=== PATIENT | female | born 1955 | race Caucasian/White ===

== ENCOUNTER 2023-02-13 11:02 | Outpatient (OUT) | payer BC, SELFPAY ==
[2023-02-13 10:10] LABS: Basophils Percent Auto 0.6 % (0.2-2.0); Eosinophils Percent Auto 1.1 % (0.9-7.0); Lymphocytes Absolute Auto 1.7 10^3/uL (1.2-3.8); Lymphocytes Percent Auto 47.4 % (20.5-60.0); Mean Corpuscular HGB Conc 32.5 g/dL (29.9-35.2); Mean Corpuscular Hemoglobin 32.2 pg (26.7-34.0); Mean Platelet Volume 9.5 fL (9.5-13.5); Monocytes Absolute Auto 0.4 10^3/uL (0.3-0.8); Monocytes Percent Auto 10.6 % (1.7-12.0); Neutrophils Absolute Auto 1.4 10^3/uL (1.4-6.5); Neutrophils Percent Auto 40.3 % (43.0-75.0); Platelet Count 299 10^3/uL (150-450); Red Blood Count 4.04 10^6/uL (4.20-5.40); Red Cell Distribution Width 11.8 % (11.0-15.0); White Blood Count 3.5 10^3/uL (4.0-11.0)
[2023-02-13 12:59] LABS: Alanine Aminotransferase 34 U/L (14-59); Albumin Globulin Ratio 1.1; Albumin Level 3.7 g/dL (3.4-5.0); Alkaline Phosphatase 61 U/L (46-116); Anion Gap 12.5; Aspartate Amino Transferase 73 U/L (15-37); BUN Creatinine Ratio 16.7; Bilirubin Total 0.7 mg/dL (0.2-1.0); Calcium 8.7 mg/dL (8.5-10.1); Carbon Dioxide 28.1 mmol/L (21.0-32.0); Chloride 104 mmol/L (98-107); Chol HDL Ratio 2.4; Cholesterol 199 mg/dL (<=200); Estimated GFR (African America >60 (>=60); Estimated GFR (Non-African Ame >60 (>=60); Globulin 3.3 g/dL; Glucose 91 mg/dL (74-106); HDL Cholesterol 84 mg/dL (40-60); Potassium 4.6 mmol/L (3.5-5.1); Sodium 140 mmol/L (136-145); Thyroid Stimulating Hormone 1.489 uIU/mL (0.358-3.740); Triglycerides 58 mg/dL (<=150); VLDL CHOLESTEROL 11.6 mg/dL
[2023-02-13 17:12] LABS: Estimated Average Glucose 103 mg/dL; Glycohemoglobin A1C 5.2 % (4.5-6.2)
== END 2023-02-13 11:03 | disposition home or self-care (01) ==
LOC: LAB 11:02
PROVIDERS: PCP Family Medicine; Visit Provider Family Medicine
DX: Z00.00 Encounter for general adult medical examination without abnormal findings (principal)
CPT/HCPCS: 36415; 80053; 80061; 83036; 84443; 85025

== ENCOUNTER 2023-05-03 14:19 | Outpatient (OUT) | payer BC, SELFPAY ==
--- NOTE | 2023-05-03 14:25 | MM_ITS ---
Patient Name: MIKA SPENCER MR#: [id number] : 1955 Exam Date: 05/03/2023 Ordering Doctor: MARTHA GUPTA CNP RADIOLOGY REPORT PROCEDURE: MM TOMOSYNTHESIS SCREENING BI COMPARISON: MG MAMM SCREEN 3D ERWIN CAD, 01/22/2021. MG MAMM SCREEN ERWIN W CAD, 12/05/2019. MG MAMM SCREEN ERWIN W CAD, 12/09/2016. INDICATIONS: Screening Calculator Name NCI Breast Cancer Risk Assessment Tool 5 Year Breast Cancer Risk 1.40% Lifetime Breast Cancer Risk 5.10% Personal Breast Cancer No Personal Ovarian Cancer No Treatments None Family Cancers None LOCATION: [facility] BREAST COMPOSITION: Heterogeneously dense,which may obscure small masses. FINDINGS: DIAGNOSTIC CATEGORY 1--NEGATIVE. RIGHT BREAST: No significant suspicious finding. No significant change has occurred. LEFT BREAST: No significant suspicious finding. No significant change has occurred. RECOMMENDATIONS: ROUTINE MAMMOGRAM AND CLINICAL EVALUATION IN 12 MONTHS. PLEASE NOTE: A NORMAL MAMMOGRAM DOES NOT EXCLUDE THE POSSIBILITY OF BREAST CANCER. A CLINICALLY SUSPICIOUS PALPABLE LUMP SHOULD BE BIOPSIED. Dictated by: Hollis Merino M.D. on 05/04/2023 at 12:07 Approved by: Hollis Merino M.D. on 05/04/2023 at 12:09
== END 2023-05-03 14:20 | disposition home or self-care (01) ==
LOC: MAMMO 14:19
PROVIDERS: PCP Nurse Practitioner Family; Visit Provider Nurse Practitioner Family
DX: Z12.31 Encounter for screening mammogram for malignant neoplasm of breast (principal)
CPT/HCPCS: 77063; 77067

== ENCOUNTER 2023-11-15 14:08 | Outpatient (OUT) | payer BC, SELFPAY ==
--- NOTE | 2023-11-15 14:10 | ECG_ITS ---
[facility] Test Date: 2023-11-15 Pat Name: Sydnee Green Department: Room: - Gender: Female Senior Branch Manager: : 1955 Requested By: Hollis Campo Order Number: [id number] Reading MD: ROSA TAVERAS Measurements Intervals [place] Rate: 58 P: 55 NE: 180 QRS: 7 QRSD: 93 T: 48 QT: 428 QTc: 421 Interpretive Statements SINUS BRADYCARDIA No previous ECG available for comparison Electronically Signed On 11-15-2023 18:41:54 EDT by ROSA TAVERAS
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
== END 2023-11-15 14:09 | disposition home or self-care (01) ==
LOC: PST 14:09
PROVIDERS: PCP Nurse Practitioner Family; Visit Provider Orthopaedic Surgery
DX: Z01.810 Encounter for preprocedural cardiovascular examination (principal); Z01.818 Encounter for other preprocedural examination; S42.002A Fracture of unspecified part of left clavicle, initial encounter for closed fracture
CPT/HCPCS: 93005; G0463

== ENCOUNTER 2023-11-17 08:01 | Day surgery (SDC) | payer BC, SELFPAY ==
[2023-11-15 14:39] VITALS: BP 117/76; PULSE 64; TEMP 36.6; O2SAT 99; BMI 19.9
[2023-11-17] VITALS (9 sets, daily range): BP systolic 117–142; BP diastolic 66–84; PULSE 62–77; TEMP 36.2–36.8; O2SAT 95–100; BMI 19.9; BMI 35.9
--- NOTE | 2023-11-17 | FL_ITS ---
[address] [address] Patient Name: MIKA SPENCER MRN: [id number] date: 1955 Sex: F Assigned Patient Location: [facility] Current Patient Location: [facility] Accession/Order Number: [id number] Exam Date: 11/17/2023 09:43 Report Date: 11/23/2023 07:33 At the request of: CARA VALDERRAMA Procedure: FL fluoroscopy <1hr NON-READ EXAM: FL fluoroscopy <1hr NON-READ HISTORY: TECHNIQUE: FINDINGS: Please see Operative Report. Electronically authenticated by: RADIOLOGIST NO Date: 11/23/2023 07:33
--- NOTE | 2023-11-17 08:00 | XR_ITS ---
The [address] [address] Patient Name: MIKA SPENCER MRN: [id number] date: 1955 Sex: F Assigned Patient Location: [facility] Current Patient Location: [facility] Accession/Order Number: [id number] Exam Date: 11/17/2023 08:14 Report Date: 11/17/2023 09:22 At the request of: JOSÉ MIGUEL HICKS Procedure: XR chest 2V EXAM: Chest x-ray HISTORY: . rule out pneumo preop related to clavicle fracture . COMPARISON: None. TECHNIQUE: Frontal and lateral chest FINDINGS: Heart and vascularity are unremarkable. Lungs are free of focal infiltrates. No definite pneumothorax is identified. Again noted is the fracture involving the left mid clavicle which is unchanged. XR/XR chest 2V IMPRESSION: 1. No acute heart or lung disease identified. 2. No pneumothorax noted. 3. Fracture of the left mid clavicle which is unchanged. Electronically authenticated by: JAYLEN AZUL Date: 11/17/2023 09:22
--- OUTSIDE RECORDS SUMMARY | 2023-11-17 08:05 | XMS_ITS | CCD ---
Author Organization [facility] Care Team Providers Care Flour Broker Name Role Phone Halle Dahl Unavailable DR MORALES TORO Primary Care Unavailable DR CARA CANALES Consulting Unavailable TAY AZUL Attending Unavailable TAY AZUL Admitting Unavailable TAY AZUL Consulting Unavailable BRENDA CH Consulting Unavailable DR MORALES TORO Primary Care Unavailable BRENDA CH Attending Unavailable BRENDA CH Admitting Unavailable Michelle Fisher Unavailable MORALES TORO Attending Unavailable NON STAFF Primary Care Provider UnavailBARBARA Chris Attending Provider NON STAFF Primary Care Unavailable Marilu Olmedo Admitting Unavailable Marilu Olmedo Attending Unavailable Michelle Fisher Admitting Unavailable Michelle Fisher Attending Unavailable NON STAFF Primary Care Unavailable Medications Current Medications Medication Drug Class(es) Dates [...] 50 MG PO Every 6 hours 15 5 November 14, 2023 12:00am Completed/Discontinued Medications Medication Drug Class(es) Dates Sig (Normalized) Sig (Original) predniSONE 10 mg oral tablet (2 sources) Start: 04-05-2022 prednisone 10 MG as directed with food Orally 5 tablet x 2 days, 4 tablet x2 days, 3 tablet x2 days, 2 tablet x 2 days, 1 tablet x 2 days for 10 days Mar, Not-Taking Problems Active Problems Problem Classification Problem Date [...] Dysuria; Translations: [Hematuria, unspecified] Onset: 01-25-2023 Episodic Results Test Name Value Interpretation Reference Range Facility XR clavicle LT*on 11-14-2023 XR clavicle LT* [facility] [place] [address] [place] [address] XRay Report Signed Patient: Sydnee Green MR#: [id number] : 1955 Acct:[id number] Age/Sex: 68 / F ADM Date: 11/14/23 Loc: XDUCLY Room: Type: [facility] Attending Dr: Marilu Olmedo APRN Copies to: Marilu Olmedo APRN Ordering Provider: Marilu Olmedo APRN Date of Service: 11/14/23 XR/XR clavicle LT*: M25.512 - Pain in left shoulder ([id number]) XR/XR shoulder LT min 2V*: M25.512 - [...] Sarita Merritt M.D.11/14/2023 10:45 AM Dictation Location: [place] [address] Transcribed By: CYNTHIA 11/14/23 1045 Dictated By: Sarita Merritt MD 11/14/23 1039 Signed By: 11/14/23 1045 Normal [facility] Urinalysis - AUTOMATEDon Appearance (U) cloudy InSample Other Bilirubin Ql (U) Negative Growing Stars Other Color (U) light yellow [employer] Other Glucose Ql (U) Negative InSample Other Hemoglobin Ql (U) moderate [employer] Other Ketones Ql (U) Negative InSample Other Leukocyte esterase Test strip Ql (U) large [employer] Other Nitrite Ql (U) Negative InSample Other pH (U) 7.0 [pH] [employer] Other Protein Ql (U) Negative InSample Other Specific gravity (U) [Rel density] 1.010 [employer] Other Urobilinogen (U) [Mass/Vol] 0.2 mg/dL [employer] Other Urinalysis - AUTOMATED [employer] Other Urine Cultureon 01-25-2023 Urine Culture >100,000 [employer] Other Urine Culture <16 Susceptible InSample Other Urine Culture <8/4 Susceptible InSample Other Urine Culture <8 Susceptible InSample Other Urine Culture <4 Susceptible InSample Other Urine Culture <2 Susceptible InSample Other Urine Culture <1 Susceptible InSample Other Urine Culture <0.25 Susceptible InSample Other Urine Culture <0.5 Susceptible InSample Other Urine Culture <32 Susceptible InSample Other Urine Culture <0.5/9.5 Susceptible InSample Other Bacteria identified Cx Nom (U) ORGANISM: Escherichia coli (O:ESCCOL) [place] Count >100,000 Aerobic TAMI Charge (NMIC56) --- [...] RESISTANT TO ALL B-LACTAM DRUGS. PERFORMED BY: [address] [place] [address] PATHOLOGIST DISTRIBUTION A CLASS LINEMAN LILLY ACUÑA M.D. [facility] Comment on above: Performed By: #### C UU #### [facility] [address] MRI SHOULDER RT WO CONon MRI SHOULDER [...] CARA CANALES Date: 2022-06-17 12:02 Normal [facility] GLUCOSE BLOODon 04-28-2022 Glucose [Mass/Vol] 92 mg/dL Normal 74-106 [facility] Comment on above: Performed By: #### G ERIC, LIPID #### [facility] [address] [address] [address] Sundar Castillo LIPID PROFILEon 04-28-2022 CHOL-HDL RATIO NORM SEE BELOW Normal [facility] Comment on above: Result Comment: 3.3 - 4.4 LOW RISK 4.4 - 7.1 AVERAGE RISK 7.1 - 11.0 MODERATE RISK >11.0 HIGH RISK Performed By: #### G ERIC, LIPID #### [facility] [address] [address] [address] Sundar Castillo Cholesterol [Mass/Vol] 221 mg/dL Critically high <=200 [facility] Comment on above: Performed By: #### G ERIC, LIPID #### [facility] [address] [address] [address] Sundar Castillo Cholesterol in HDL [Mass/Vol] 91 mg/dL Critically high 40-60 [facility] Comment on above: Performed By: #### G ERIC, LIPID #### [facility] [address] [address] [address] Sundar Castillo Cholesterol in LDL [Mass/Vol] 106.0 mg/dL Normal [facility] Comment on above: Performed By: #### G ERIC, LIPID #### [facility] [address] [address] [address] Sundar Castillo Cholesterol.total /Cholesterol in HDL [Mass ratio] 2.4 {ratio} Normal [facility] Comment on above: Performed By: #### G ERIC, LIPID #### [facility] [address] [address] [address] Sundar Castillo HDL NORMAL > or = 60 mg/dl - LO W CARDIOVASCULAR RISK <40 mg/dl - HIGH CARDIOVASCULAR RISK Normal [facility] Comment on above: Performed By: #### G ERIC, LIPID #### [facility] [address] [address] [address] Sundar Castillo LDL CALC NORMAL SEE BELOW Normal [facility] Comment on above: Result Comment: <100 mg/dl OPTIMAL 100 - 129 mg/dl NEAR OR ABOVE OPTIMAL 130 - 159 mg/dl BORDERLINE HIGH 160 - 189 mg/dl HIGH >190 mg/dl VERY HIGH Performed By: #### G ERIC, LIPID #### [facility] [address] [address] [address] Sundar Castillo Triglyceride [Mass/Vol] 120 mg/dL Normal <=150 [facility] Comment on above: Performed By: #### G ERIC, LIPID #### [facility] [address] [place], [place] [address] Dr. Sundar Castillo VLDL CALC 24.0 mg/dL Normal [facility] Comment on above: Performed By: #### G ERIC, LIPID #### [facility] [address] [place], [place] [address] Dr. Sundar Castillo Vital Signs Date Time Vital Sign Value Performing Clinician Facility 11-14-2023 09:230400 Body height 161.29 cm [facility] 11-14-2023 09:23-0400 Body mass index (BMI) [Ratio] 19.5 kg/m2 [facility] 11-14-2023 09:23-0400 Body temperature 97.4 [degF] [facility] 11-14-2023 09:23-0400 Body weight 50.91 kg [facility] 11-14-2023 09:23-0400 Diastolic blood pressure 81 mm[Hg] [facility] 11-14-2023 09:23-0400 Heart rate 86 /min [facility] 11-14-2023 09:23-0400 Respiratory rate 18 /min [facility] 11-14-2023 09:23-0400 SaO2% (BldA) [Mass fraction] 98 % [facility] 11-14-2023 09:23-0400 Systolic blood pressure 134 mm[Hg] [facility] 01-25-2023 09:20-0400 Body height 162.56 cm Michelle Fisher Other [facility] [employer] Other 01-25-2023 09:20-0400 Body mass index (BMI) [Ratio] 20.97 kg/m2 Michelle Fisher Other [facility] Other 01-25-2023 09:20-0400 Body temperature 98.1 [degF] Michelle Fisher Other [facility] [employer] Other 01-25-2023 09:20-0400 Body weight 55.43 kg Michelle Fisher Other [employer] Other 01-25-2023 09:20-0400 Diastolic blood pressure 85 mm[Hg] Michelle Fisher Other [facility] [employer] Other 01-25-2023 09:20-0400 Respiratory rate 18 /min Michelle Fisher Other [employer] Other 01-25-2023 09:20-0400 SaO2% (BldA) [Mass fraction] 100 % Michelle Fisher Other [facility] [employer] Other 01-25-2023 09:20-0400 Systolic blood pressure 130 mm[Hg] Michelle Fisher Other [employer] Other 04-05-2022 10:20-0500 Body height 162.56 cm Halle Dahl Other [employer] Other 04-05-2022 10:20-0500 Body mass index (BMI) [Ratio] 20.6 kg/m2 Halle Dahl Other [employer] Other 04-05-2022 10:20-0500 Body temperature 97.9 [degF] Halle Dahl Other [employer] Other 04-05-2022 10:20-0500 Body weight 54.43 kg Halle Dahl Other [employer] Other 04-05-2022 10:20-0500 Diastolic blood pressure 92 mm[Hg] Halle Dahl Other [employer] Other 04-05-2022 10:20-0500 Respiratory rate 16 /min Halle Dahl Other [employer] Other 04-05-2022 10:20-0500 SaO2% (BldA) [Mass fraction] 99 % Halle Dahl Other [employer] Other 04-05-2022 10:20-0500 Systolic blood pressure 145 mm[Hg] Halle Dahl Other [employer] Other Encounters Encounter Date Encounter Type Care Provider Facility Start: 11-14-2023 End: 11-14-2023 ambulatory NON STAFF [facility] Work Phone: Start: 11-14-2023 End: 11-14-2023 Patient encounter procedure [facility] Work Phone: Start: 09-28-2023 End: 09-28-2023 ambulatory MORALES TORO Not Available Start: 01-25-2023 Office outpatient vi sit 15 minutes Michelle Fisher [facility] Start: 01-25-2023 End: 01-25-2023 ambulatory Michelle Fisher [facility] [employer] Other Start: 06-17-2022 End: 06-18-[address] MORALES TORO Facility:[facility] Start: 05-02-2022 Encounter for genera l adult medical examination without abnormal findings BRENDA CH [facility] Start: 04-28-2022 End: 04-29-2022 ambulatory BRENDA CH Facility:[facility] Start: 04-28-2022 End: 04-29-2022 Encounter for general adult medical examination without abnormal findings BRENDA CH Facility:[facility] Start: 04-05-2022 End: 04-05-2022 ambulatory Halle Dahl Other [employer] Other Start: 04-05-2022 Office outpatient ne w 20 minutes Halle Dahl [facility] Procedures Date Procedure Procedure Detail Performing Clinician Start: 11-14-2023 Plain X-ray of left clavicle Start: 11-14-2023 Plain X-ray of left shoulder Start: 01-25-2023 Piperacillin/tazobactam Michelle Fisher Other Cosmetic surgery Halle no Other Payers Date Payer Category Payer Self-pay 1957 Medicare [id number] 2. [id number] 1955 Unknown [id number] 2.16.84 [id number] 1955 Unknown [id number] 2.16.84 [id number] 1955 Unknown [id number] 2.16.84 [id number] Unknown [id number] 2.16.8 [id number] Unknown [id number] 2.16.8 [id number] Social History Date Type Detail Facility Sex Assigned At [employer] Other Start: 1955 Sex Assigned At Female F [facility] Evaluation note 01-25-2023 Note Date & Type [...] days Jan, Hematuria, unspecified (ICD-10 - R31.9) [employer] [facility] Other Evaluation note 04-05-2022 Note Date & [...] understanding and is agreeable with treatment plan [employer] [facility] Other History general Narrative - Reported 08-13-1998 Note Date & Type Note Facility 08-13-1998 History general N arrative - Reported Type Surgical History HYSTERECTOMY w/ bladder suspens ion AUGUST 1998 [employer] Other Evaluation note Note Date & Type Note Facility Evaluation note No assessment information availa [facility] Work Phone: Evaluation note Note Date & Type Note Facility Evaluation note Diagnosis Onset Date Abrasions of multiple sites acute Fracture of left clavicle [place] hematoma of great toe of left foot acute [facility] Work Phone: Summary Purpose Family History No [...] DATE CREATED AUTHOR AUTHOR'S ORGANIZ ATION 10/01/2023 [facility] EPIC DATE CREATED AUTHOR AUTHOR'S ORGANIZ ATION 11/17/2023 [facility] Care Teams (unrecognized sec tion [...] BE BASED ON THE PRIMARY CLINICAL RECORDS. [facility] [employer] provides no warranty or guarantee of the accuracy or completeness of information in this document.
[2023-11-17] MEDS: LACTATED RINGER'S SOLUTION 1,000 ML 50 ML IV ×2 (08:54→10:38)
--- NOTE | 2023-11-17 08:58 | PM.ORPRC ---
Procedure Note Date of procedure: 11/17/23 Pre-op diagnosis: Clavicle fracture Post-op diagnosis: same as pre-op Procedure: Procedures: Open reduction internal fixation left clavicle fracture Detail description of procedure: After informed consent was obtained the patient was brought to the operating room where general anesthetic was administered. Patient was placed in the semibeachchair position. The left chest and arm were prepped and draped in the usual sterile fashion. A 10 cm incision was made overlying the clavicle fracture. Hemostasis was achieved with Bovie. Blunt dissection was carried down through soft tissue in order to preserve superficial neurovascular structures. Fracture was identified and subperiosteal dissection was performed. Fracture was found to be comminuted and displaced. Bridge plating technique was performed. Fracture was first fixed medially with 3 nonlocking screws initially and then 2 locking screws all in bicortical fashion utilizing a Synthes locking clavicle plate. Fracture was held in a reduced position and then compression plating technique was used to compress the fracture site with a 2 7 bicortical nonlocking screw laterally. An additional 1 nonlocking screw was placed laterally in a bicortical fashion and then 2 bicortical locking screws were placed laterally. Wound was irrigated. Final x-rays revealed good alignment of the fracture and appropriate implant placement and lengths. Fascia was repaired with a #1 Vicryl suture. Skin was closed with absorbable suture in layers. Steri-Strips and sterile dressing were placed. Patient was awakened and brought to the recovery room in stable condition. There were no intraoperative or immediate postoperative complications. Anesthesia: RAJAT Surgeon: Hollis Campo Pathology: none sent Condition: stable Disposition: PACU
[2023-11-17] MEDS: CEFAZOLIN SODIUM/DEXTROSE,ISO 2 GM/50 ML PIGGYBACK IV (09:30)
[2023-11-17] MEDS: BUPIVACAINE HCL 0.5% PF 50 MG/10 ML VIAL INJ (11:06)
[2023-11-17] MEDS: LIDOCAINE HCL 1%-EPINEPHRINE 1:100,000 10 ML MDV INJ (11:06)
== END 2023-11-17 12:27 | disposition home or self-care (01) ==
PROVIDERS: PCP Nurse Practitioner Family; Visit Provider Orthopaedic Surgery
PROC: (CPT 00450; principal; 2023-11-17 09:00)
DX: S42.002A Fracture of unspecified part of left clavicle, initial encounter for closed fracture (principal); Y93.55 Activity, bike riding; Z87.891 Personal history of nicotine dependence; Z90.710 Acquired absence of both cervix and uterus
CPT/HCPCS: 00450; 23515; 71046; 76000; C1713; J0131; J0665; J0690; J1100; J1170; J1885; J2250; J2405; J2704; J3010

== ENCOUNTER 2023-12-25 10:43 | Outpatient (OUT) | payer BC, SELFPAY ==
--- NOTE | 2023-12-25 | XR_ITS ---
[address] [address] Patient Name: MIKA SPENCER MRN: [id number] date: 1955 Sex: F Assigned Patient Location: Current Patient Location: Accession/Order Number: [id number] Exam Date: 12/25/2023 10:44 Report Date: 12/27/2023 06:42 At the request of: CARA VALDERRAMA Procedure: XR clavicle LT PROCEDURE: XR clavicle LT HISTORY: LEFT CLAVICLE PAIN COMPARISON: XR clavicle left 12/01/2023 FINDINGS: BONES:Prior mid left clavicle fracture with new inferior displacement of the distal end of the clavicle and separation of the distal fragment from the previously placed plate and screws. The plate and screws remain attached to the proximal clavicle. SOFT TISSUES:No visible soft tissue swelling. EFFUSION:None visible. OTHER: Negative. XR/XR clavicle LT IMPRESSION: 1. New separation of the distal clavicle from the plate and screws and slight displacement of the bone. Electronically authenticated by: CARA CANALES Date: 12/27/2023 06:42
--- OUTSIDE RECORDS SUMMARY | 2023-12-25 11:04 | XMS_ITS | CCD ---
Author Organization [facility] Care Team Providers Care Fire Dispatcher Name Role Phone Halle Dahl Unavailable DR [...] Attending Unavailable NON STAFF Primary Care Unavailable CARA VALDERRAMA Referring Unavailable SABRINA WILLIS Primary Care Unavailable CARA VALDERRAMA Referring Unavailable SABRINA WILLIS Primary Care Unavailable CARA VALDERRAMA Referring Unavailable SABRINA WILLIS Primary Care Unavailable Medications Current Medications Medication [...] Three times a day for 2 day(s) 13 Jan, 2023 Active Progesterone (2 sources) Progesterone Progesterone Micronized [...] Da te Episodic/Chronic Fracture of upper limb (6 sources) Fracture of clavicle; Translations: [Fracture of unspecified part of left clavicle, initial encounter for closed fracture] Onset: 12-01-2023 11-14-2023 Episodic Other connective tissue disease (1 [...] [Left shoulder pain] Onset: 11-14-2023 11-14-2023 Episodic Other non-traumatic joint disorders (3 sources) Pain in left hip; Translations: [Pain in left hip] Onset: 12-01-2023 Episodic Superficial injury; contusion (2 sources) Subungual [...] Name Value Interpretation Reference Range Facility XR CLAVICLE LEFTon XR CLAVICLE LEFT EXAM: XR CLAVICLE LEFT. HISTORY: Closed displaced fracture of left clavicle, unspecified part of clavicle, initial encounter. COMPARISON: Intraoperative spot films 11/17/2023, preop films 11/14/2023. IMPRESSION: FINDINGS/IMPRESSION: 1. Plate and screw fixation clavicle intact. 2. Fracture in anatomic alignment, remains visible, in the middle one-third. 3. Mild age-expected degenerative change at the shoulder, unchanged. Interpreted by: Jorge Otto Jr., MD Signed by: Jorge Otto Jr., MD 12/01/23 Final result Normal [facility] XR HIP 2-3 VW W PELVIS LEFTo n 12-01-2023 XR HIP 2-3 VW W PELVIS LEFT EXAM: XR HIP 2-3 VW W PELVIS LEFT HISTORY: Left hip pain. COMPARISON: None. IMPRESSION: FINDINGS/IMPRESSION: 1. 10 mm bony ossicle adjacent to the superolateral left acetabulum of uncertain age. 2. Mild degenerative change at the hips. 2. Degenerative changes lumbar spine with convex left curve. 3. Minimal age-expected degenerative change at the SI joints. Interpreted by: Jorge Otto Jr., MD Signed by: Jorge Otto Jr., MD 12/01/23 Final result Normal [facility] XR clavicle LT*on 11-14-2023 XR clavicle LT* [facility] [place] [address] [place], [place] [id number] XRay Report Signed Patient: Sydnee Spencer MR#: [id number] : 1955 Acct:[id number] Age/Sex: 68 / F ADM Date: 11/14/23 Loc: XDUCLY Room: Type: REG CLI Attending Dr: Marilu Olmedo APRN Copies to: Marilu Olmedo APRN Ordering Provider: Marilu Olmedo APRN Date of Service: 11/14/23 XR/XR clavicle LT*: M25.512 - Pain in left shoulder ([id number]) XR/XR shoulder LT min 2V*: M25.512 - [...] Sarita Merritt M.D.11/14/2023 10:45 AM Dictation Location: [place] [address] Transcribed By: [facility] 11/14/23 1045 Dictated By: Sarita Merritt MD 11/14/23 1039 Signed By: 11/14/23 1045 Normal [facility] Urinalysis - AUTOMATEDon Appearance (U) cloudy [employer] Other Bilirubin Ql (U) Negative [employer] Other Color (U) light yellow [email or web address] Other Glucose Ql (U) Negative [employer] Other Hemoglobin Ql (U) moderate [facility] [email or web address] Other Ketones Ql (U) Negative [employer] Other Leukocyte esterase Test strip Ql (U) large [email or web address] Other Nitrite Ql (U) Negative [employer] Other pH (U) 7.0 [pH] [email or web address] Other Protein Ql (U) Negative [employer] Other Specific gravity (U) [Rel density] 1.010 [email or web address] Other Urobilinogen (U) [Mass/Vol] 0.2 mg/dL [email or web address] Other Urinalysis - AUTOMATED [email or web address] Other Urine Cultureon 01-25-2023 Urine Culture >100,000 [email or web address] Other Urine Culture <16 Susceptible [employer] Other Urine Culture <8/4 Susceptible [employer] Other Urine Culture <8 Susceptible [employer] Other Urine Culture <4 Susceptible [employer] Other Urine Culture <2 Susceptible [employer] Other Urine Culture <1 Susceptible [employer] Other Urine Culture <0.25 Susceptible [employer] Other Urine Culture <0.5 Susceptible [employer] Other Urine Culture <32 Susceptible [employer] Other Urine Culture <0.5/9.5 Susceptible [employer] Other Bacteria identified Cx Nom (U) ORGANISM: Escherichia coli (O:ESCCOL) [place] Count >100,000 Aerobic TAMI Charge (NMIC56) --- [...] RESISTANT TO ALL B-LACTAM DRUGS. PERFORMED BY: [place] [address] PATHOLOGIST PHARMACY CLERK LILLY ACUÑA M.D. Normal [facility] Comment on above: Performed By: #### C UU #### [address] MRI SHOULDER RT WO CONon MRI [...] CARA CANALES Date: 2022-06-17 12:02 Normal [facility] GLUCOSE BLOODon 04-28-2022 Glucose [Mass/Vol] 92 mg/dL Normal 74-106 [facility] Comment on above: Performed By: #### G ERIC, LIPID #### [facility] [address] [place] [address] [address] Sundar Castillo LIPID PROFILEon 04-28-2022 CHOL-HDL RATIO NORM SEE BELOW Normal [facility] Comment on above: Result Comment: 3.3 - 4.4 LOW RISK 4.4 - 7.1 AVERAGE RISK 7.1 - 11.0 MODERATE RISK >11.0 HIGH RISK Performed By: #### G ERIC, LIPID #### [facility] [address] [address] [address] Sundar Castillo Cholesterol [Mass/Vol] 221 mg/dL Critically high <=200 [facility] Comment on above: Performed By: #### G ERIC, LIPID #### [facility] [address] [place] [address] [address] Sundar Castillo Cholesterol in HDL [Mass/Vol] 91 mg/dL Critically high 40-60 [facility] Comment on above: Performed By: #### G ERIC, LIPID #### [facility] [address] [place] [address] [address] Sundar Castillo Cholesterol in LDL [Mass/Vol] 106.0 mg/dL Normal [facility] Comment on above: Performed By: #### G ERIC, LIPID #### [facility] [address] [place] [address] Dr. Sundar Castillo Cholesterol.total /Cholesterol in HDL [Mass ratio] 2.4 {ratio} Normal [facility] Comment on above: Performed By: #### G ERIC, LIPID #### [facility] [address] [place] [address] Dr. Sundar Castillo HDL NORMAL > or = 60 mg/dl - LO W CARDIOVASCULAR RISK <40 mg/dl - HIGH CARDIOVASCULAR RISK Normal [facility] Comment on above: Performed By: #### G ERIC, LIPID #### [facility] [address] [place] [address] Dr. Sundar Castillo LDL CALC NORMAL SEE BELOW Normal [facility] Comment on above: Result Comment: <100 mg/dl OPTIMAL 100 - 129 mg/dl NEAR OR ABOVE OPTIMAL 130 - 159 mg/dl BORDERLINE HIGH 160 - 189 mg/dl HIGH >190 mg/dl VERY HIGH Performed By: #### G ERIC, LIPID #### [facility] [address] [place] [address] [address] Sundar Castillo Triglyceride [Mass/Vol] 120 mg/dL Normal <=150 [facility] Comment on above: Performed By: #### G ERIC, LIPID #### [facility] [address] [place] [address] [address] Sundar Castillo VLDL CALC 24.0 mg/dL Normal [facility] Comment on above: Performed By: #### G ERIC, LIPID #### [facility] [address] [place] [address] Dr. Sundar Castillo Vital Signs Date Time Vital Sign Value Performing Clinician Facility 11-14-2023 09:23-0400 Body height 161.29 cm [facility] 11-14-2023 09:23-0400 Body mass index (BMI) [Ratio] 19.5 kg/m2 [facility] 11-14-2023 09:23-0400 Body temperature 97.4 [degF] [facility] 11-14-2023 09:23-0400 Body weight 50.91 kg [facility] 11-14-2023 09:23-0400 Diastolic blood pressure 81 mm[Hg] [facility] 11-14-2023 09:23-0400 Heart rate 86 /min [facility] 11-14-2023 09:23-0400 Respiratory rate 18 /min [facility] 11-14-2023 09:23-0400 SaO2% (BldA) [Mass fraction] 98 % [facility] 11-14-2023 09:23-0400 Systolic blood pressure 134 mm[Hg] [facility] 01-25-2023 09:20-0400 Body height 162.56 cm Michelle Caraballomond Other [facility] Other 01-25-2023 09:20-0400 Body mass index (BMI) [Ratio] 20.97 kg/m2 Michelle Natalia Other [employer] [facility] Other 01-25-2023 09:20-0400 Body temperature 98.1 [degF] Michelle Natalia Other [email or web address] Other 01-25-2023 09:20-0400 Body weight 55.43 kg Michelle Natalia Other [email or web address] Other 01-25-2023 09:20-0400 Diastolic blood pressure 85 mm[Hg] Michelle Natalia Other [email or web address] Other 01-25-2023 09:20-0400 Respiratory rate 18 /min Michelle Natalia Other [email or web address] Other 01-25-2023 09:20-0400 SaO2% (BldA) [Mass fraction] 100 % Michelle Caraballomond Other [email or web address] Other 01-25-2023 09:20-0400 Systolic blood pressure 130 mm[Hg] Michelle Caraball[place]ond Other [email or web address] Other 04-05-2022 10:20-0500 Body height 162.56 cm Halle Dahl Other [email or web address] Other 04-05-2022 10:20-0500 Body mass index (BMI) [Ratio] 20.6 kg/m2 Halle Dahl Other [email or web address] Other 04-05-2022 10:20-0500 Body temperature 97.9 [degF] Halle Dahl Other [email or web address] Other 04-05-2022 10:20-0500 Body weight 54.43 kg Halle Dahl Other [email or web address] Other 04-05-2022 10:20-0500 Diastolic blood pressure 92 mm[Hg] Halle Dahl Other [email or web address] Other 04-05-2022 10:20-0500 Respiratory rate 16 /min Halle Dahl Other [email or web address] Other 04-05-2022 10:20-0500 SaO2% (BldA) [Mass fraction] 99 % Halle Dahl Other [email or web address] Other 04-05-2022 10:20-0500 Systolic blood pressure 145 mm[Hg] Halle Dahl Other [email or web address] Other Encounters Encounter Date Encounter Type Care Provider Facility Start: 12-01-2023 End: 12-03-2023 ambulatory [facility] Start: 11-14-2023 End: 11-14-2023 ambulatory NON STAFF [facility] Work Phone: Start: 11-14-2023 End: 11-14-2023 Patient encounter procedure [facility] Work Phone: Start: 09-28-2023 End: 09-28-2023 ambulatory MORALES TORO Not Available Start: 01-25-2023 Office outpatient vi sit 15 minutes Michelle Fisher [facility] Start: 01-25-2023 End: 01-25-[address] [facility] [employer] Other Start: 06-17-2022 End: 06-18-[address] MORALES TORO Facility:[facility] Start: 05-02-2022 Encounter for genera l adult medical examination without abnormal findings BRENDA CH [facility] Start: 04-28-2022 End: 04-29-2022 ambulatory BRENDA CH Facility:[facility] Start: 04-28-2022 End: 04-29-2022 Encounter for general adult medical examination without abnormal findings BRENDA CH Facility:[facility] Start: 04-05-2022 End: 04-05-2022 ambulatory Halle Dahl Other [email or web address] Other Start: 04-05-2022 Office outpatient ne w 20 minutes Halle Dahl [facility] Procedures Date Procedure Procedure Detail Performing Clinician Start: 11-14-2023 Plain X-ray of left clavicle Start: 11-14-2023 Plain X-ray of left shoulder Start: 01-25-2023 Piperacillin/tazobactam Michelle Fishre Other Cosmetic surgery Halle no Other Payers Date Payer Category Payer Self-pay 1957 Medicare [id number] 2. [id number] 1955 Unknown [id number] 2.16.84 [id number] 1955 Unknown [id number] 2.16.84 [id number] 1955 Unknown [id number] 2.16.84 [id number] 1955 Unknown [id number] 2.16.8 [id number] 1955 Unknown [id number] 2.16.8 [id number] 1955 Unknown [id number] 2.16.8 [id number] Unknown [id number] 2.16.8 [id number] Unknown [id number] 2.16.8 [id number] Social History Date Type Detail Facility Sex Assigned At [email or web address] Other Start: 1955 Sex Assigned At Female F [facility] Evaluation note 01-25-2023 Note Date & [...] days Jan, Hematuria, unspecified (ICD-10 - R31.9) [email or web address] Other Evaluation note 04-05-2022 Note Date & [...] understanding and is agreeable with treatment plan [email or web address] Other History general Narrative - Reported 08-13-1998 Note Date & Type Note Facility 08-13-1998 History general N arrative - Reported Type Surgical History HYSTERECTOMY w/ bladder suspens ion AUGUST 1998 [email or web address] Other Evaluation note Note Date & Type Note Facility Evaluation note No assessment information availa [facility] Work Phone: Evaluation note Note Date & Type Note Facility Evaluation note Diagnosis Onset Date Abrasions of multiple sites acute Fracture of left clavicle [place] Subungual hematoma of great toe of left foot acute [facility] Work Phone: Summary Purpose Family [...] DATE CREATED AUTHOR AUTHOR'S ORGANIZ ATION 10/01/2023 [facility] EPIC DATE CREATED AUTHOR AUTHOR'S ORGANIZ ATION 11/17/2023 [facility] DATE CREATED AUTHOR AUTHOR'S ORGANIZ ATION 12/04/2023 Tere Leyva [facility] Care Teams (unrecognized sec tion and content) [...] BE BASED ON THE PRIMARY CLINICAL RECORDS. [employer] provides no warranty or guarantee of the accuracy or completeness of information in this document.
== END 2023-12-25 10:44 | disposition home or self-care (01) ==
LOC: EC 10:43
PROVIDERS: PCP Nurse Practitioner Family; Visit Provider Orthopaedic Surgery
DX: S42.022D Displaced fracture of shaft of left clavicle, subsequent encounter for fracture with routine healing (principal)
CPT/HCPCS: 73000

== ENCOUNTER 2024-01-01 10:09 | Outpatient (OUT) | payer BC, SELFPAY ==
--- NOTE | 2024-01-01 | XR_ITS ---
The [address] [address] Patient Name: MIKA SPENCER MRN: [id number] date: 1955 Sex: F Assigned Patient Location: Current Patient Location: Accession/Order Number: [id number] Exam Date: 01/01/2024 10:10 Report Date: 01/02/2024 14:32 At the request of: CARA VALDERRAMA Procedure: XR clavicle LT PROCEDURE: XR clavicle LT DATE: 01/01/2024 9:10 AM CDT COMPARISONS: 12/25/2023 and 12/01/2023 CLINICAL INDICATION: LEFT CLAVICLE PAIN FINDINGS: On the previous exam of 12/25/2023. Is noted as a new finding that the distal end of the clavicle is caudally from the previously placed clavicular fixation plate. There was a fracture of the mid clavicle and it appears that this mid clavicle fracture disrupted and there is more cephalad angulation on 12/25/2023 than on 12/01/2023. Today's exam shows similar findings to 12/25/2023. There is 25 degrees of apex cephalad angulation at the subacute mid clavicle fracture. There is sclerosis at the fracture site consistent with some healing. This probably represents re-fracture within a partially healed mid clavicle fracture. As on previous exam of 12/25/2023 and not seen on 12/01/2023, the distal end of the clavicle is caudally from the previously placed clavicular fixation plate. The proximal and of the clavicle shows the plate and screws to be intact as on 12/25/2023 and 12/01/2023. XR/XR clavicle LT IMPRESSION: Abnormal postop changes stable from 12/25/2023 not seen on 12/01/2023, as discussed above Electronically authenticated by: SHAMEKA OSWALD Date: 01/02/2024 14:32
== END 2024-01-01 10:10 | disposition home or self-care (01) ==
LOC: EC 10:09
PROVIDERS: PCP Nurse Practitioner Family; Visit Provider Orthopaedic Surgery
DX: S42.002D Fracture of unspecified part of left clavicle, subsequent encounter for fracture with routine healing (principal)
CPT/HCPCS: 73000

== ENCOUNTER 2024-01-22 10:09 | Outpatient (OUT) | payer BC, SELFPAY ==
--- NOTE | 2024-01-22 | XR_ITS ---
[address] [address] Patient Name: MIKA SPENCER MRN: [id number] date: 1955 Sex: F Assigned Patient Location: Current Patient Location: Accession/Order Number: [id number] Exam Date: 01/22/2024 10:10 Report Date: 01/23/2024 18:43 At the request of: CARA VALDERRAMA Procedure: XR clavicle LT EXAM: XR clavicle LT HISTORY: LEFT CLAVICLE PAIN COMPARISON: 12/25/2023 FINDINGS/IMPRESSION: 1. Plate and screw fixation of the clavicle. The distal portion of the clavicular plate is detached from the distal aspect of the clavicle and displaced superiorly approximately 1.7 cm. Similar appearance as compared to the prior exam. 2. Mild degeneration of the acromio clavicular joint. Electronically authenticated by: CRISPIN NOVOA Date: 01/23/2024 18:43
--- OUTSIDE RECORDS SUMMARY | 2024-01-22 10:32 | XMS_ITS | CCD ---
Author Organization [facility] Care Team Providers Care Corporate Trust Officer Name Role Phone Halle Dahl Unavailable DR [...] Otto Jr., MD 12/01/23 Final result Normal [facility] XR HIP 2-3 VW W PELVIS LEFTo [...] Otto Jr., MD 12/01/23 Final result Normal [facility] XR clavicle LT*on 11-14-2023 XR clavicle LT* [facility] Main [place] [address] [place], [place] [id number] XRay Report Signed Patient: Sydnee Spencer MR#: [id number] : 1955 Acct:[id number] Age/Sex: 68 / F ADM Date: 11/14/23 Loc: XDUCLY Room: Type: REG CLI Attending Dr: Marilu Olmedo APRN Copies to: Marilu Olmedo APRN Ordering Provider: Marilu Olmedo APRN Date of Service: 11/14/23 XR/XR clavicle LT*: M25.512 - Pain in left shoulder ([id number]) XR/XR shoulder LT min 2V*: M25.512 - [...] Sarita Merritt M.D.11/14/2023 10:45 AM Dictation Location: [place] [address] Transcribed By: [facility] 11/14/23 1045 Dictated By: Sarita Merritt MD 11/14/23 1039 Signed By: 11/14/23 1045 Normal [facility] Urinalysis - AUTOMATEDon Appearance (U) cloudy [employer] Other Bilirubin Ql (U) Negative [employer] Other Color (U) light yellow [employer] Other Glucose Ql (U) Negative [employer] Other Hemoglobin Ql (U) moderate [facility] [employer] Other Ketones Ql (U) Negative [employer] Other Leukocyte esterase Test strip Ql (U) large [employer] Other Nitrite Ql (U) Negative [employer] Other pH (U) 7.0 [pH] Crew Other Protein Ql (U) Negative [employer] Other Specific gravity (U) [Rel density] 1.010 [employer] Other Urobilinogen (U) [Mass/Vol] 0.2 mg/dL [employer] Other Urinalysis - AUTOMATED [employer] Other Urine Cultureon 01-25-2023 Urine Culture >100,000 [employer] Other Urine Culture <16 Susceptible [employer] Other Urine Culture <8/4 Susceptible [employer] Other Urine Culture <8 Susceptible [employer] Other Urine Culture <4 Susceptible [employer] Other Urine Culture <2 Susceptible [employer] Other Urine Culture <1 Susceptible [employer] Other Urine Culture <0.25 Susceptible [employer] Other Urine Culture <0.5 Susceptible [employer] Other Urine Culture <32 Susceptible [employer] Other Urine Culture <0.5/9.5 Susceptible [employer] Other Bacteria identified Cx Nom (U) ORGANISM: Escherichia coli (O:ESCCOL) [place] Count >100,000 Aerobic TAMI Charge (NMIC56) --- [...] RESISTANT TO ALL B-LACTAM DRUGS. PERFORMED BY: [place] [address] PATHOLOGIST GINSENG FARMER LILLY ACUÑA M.D. Normal [facility] Comment on above: Performed By: #### C UU #### [address] MRI SHOULDER RT WO CONon MRI [...] CARA CANALES Date: 2022-06-17 12:[address] [facility] GLUCOSE BLOODon 04-28-2022 Glucose [Mass/Vol] 92 mg/dL Normal 74-[address] [facility] Comment on above: Performed By: #### G ERIC, LIPID #### [facility] [address] [address] [address] Sundar Castillo LIPID PROFILEon 04-28-2022 CHOL-HDL RATIO NORM SEE BELOW Normal [facility] Comment on above: Result Comment: 3.3 - 4.4 LOW RISK 4.4 - 7.1 AVERAGE RISK 7.1 - 11.0 MODERATE RISK >11.0 HIGH RISK Performed By: #### G ERIC, LIPID #### [facility] [address] [address] [address] Sundar Castillo Cholesterol [Mass/Vol] 221 mg/dL Critically high <=[address] [facility] Comment on above: Performed By: #### G ERIC, LIPID #### [facility] [address] [address] [address] Sundar Castillo Cholesterol in HDL [Mass/Vol] 91 mg/dL Critically high 40-60 [facility] Comment on above: Performed By: #### G ERIC, LIPID #### [facility] [address] [address] [address] Sundar Castillo Cholesterol in LDL [Mass/Vol] 106.0 mg/dL Normal [facility] Comment on above: Performed By: #### G ERIC, LIPID #### [facility] [address] [place] [address] Dr. Sundar Castillo Cholesterol.total /Cholesterol in HDL [Mass ratio] 2.4 {ratio} Normal [facility] Comment on above: Performed By: #### G ERIC, LIPID #### [facility] [address] [place] [address] Dr. Sundar Castillo HDL NORMAL > or = 60 mg/dl - LO W CARDIOVASCULAR RISK <40 mg/dl - HIGH CARDIOVASCULAR RISK Normal [facility] Comment on above: Performed By: #### G ERIC, LIPID #### [facility] [address] [place] [address] Dr. Sundar Castillo LDL CALC NORMAL SEE BELOW Normal The [facility] Comment on above: Result Comment: <100 mg/dl OPTIMAL 100 - 129 mg/dl NEAR OR ABOVE OPTIMAL 130 - 159 mg/dl BORDERLINE HIGH 160 - 189 mg/dl HIGH >190 mg/dl VERY HIGH Performed By: #### G ERIC, LIPID #### [facility] [address] [address] [address] Sundar Castillo Triglyceride [Mass/Vol] 120 mg/dL Normal <=[address] [facility] Comment on above: Performed By: #### G ERIC, LIPID #### [facility] [address] [place] [address] [address] Sundar Castillo VLDL CALC 24.0 mg/dL Normal [facility] Comment on above: Performed By: #### G ERIC, LIPID #### [facility] [address] [place] [address] Dr. Sundar Castillo Vital Signs Date Time Vital Sign Value Performing Clinician Facility 11-14-2023 09:23-0400 Body height 161.29 cm [facility] 11-14-2023 09:23-0400 Body mass index (BMI) [Ratio] 19.5 kg/m2 [facility] 11-14-2023 09:23-0400 Body temperature 97.4 [degF] [facility] 11-14-2023 09:23-0400 Body weight 50.91 kg [facility] 11-14-2023 09:23-0400 Diastolic blood pressure 81 mm[Hg] [facility] 11-14-2023 09:23-0400 Heart rate 86 /min [facility] 11-14-2023 09:23-0400 Respiratory rate 18 /min [facility] 11-14-2023 09:23-0400 SaO2% (BldA) [Mass fraction] 98 % [facility] 11-14-2023 09:23-0400 Systolic blood pressure 134 mm[Hg] [facility] 01-25-2023 09:20-0400 Body height 162.56 cm Michelle Caraballomond Other [facility] [place] [employer] Other 01-25-2023 09:20-0400 Body mass index (BMI) [Ratio] 20.97 kg/m2 Michelle Natalia Other [facility] [place] Other 01-25-2023 09:20-0400 Body temperature 98.1 [degF] Michelle Natalia Other Crew Other 01-25-2023 09:20-0400 Body weight 55.43 kg Michelle Natalia Other Crew Other 01-25-2023 09:20-0400 Diastolic blood pressure 85 mm[Hg] Michelle Natalia Other Crew Other 01-25-2023 09:20-0400 Respiratory rate 18 /min Michelle Natalia Other Crew Other 01-25-2023 09:20-0400 SaO2% (BldA) [Mass fraction] 100 % Michelle Caraballomond Other Crew Other 01-25-2023 09:20-0400 Systolic blood pressure 130 mm[Hg] Michelle Caraball[place]ond Other Crew Other 04-05-2022 10:20-0500 Body height 162.56 cm Halle Dahl Other Crew Other 04-05-2022 10:20-0500 Body mass index (BMI) [Ratio] 20.6 kg/m2 Halle Dahl Other Crew Other 04-05-2022 10:20-0500 Body temperature 97.9 [degF] Halle Dahl Other Crew Other 04-05-2022 10:20-0500 Body weight 54.43 kg Halle Dahl Other Crew Other 04-05-2022 10:20-0500 Diastolic blood pressure 92 mm[Hg] Halle Dahl Other Crew Other 04-05-2022 10:20-0500 Respiratory rate 16 /min Halle Dahl Other Crew Other 04-05-2022 10:20-0500 SaO2% (BldA) [Mass fraction] 99 % Halle Dahl Other Crew Other 04-05-2022 10:20-0500 Systolic blood pressure 145 mm[Hg] Halle Dahl Other Crew Other Encounters Encounter Date Encounter Type Care Provider Facility Start: 12-01-2023 End: 12-03-2023 ambulatory [facility] Start: 11-14-2023 End: 11-14-2023 ambulatory NON STAFF [facility] Work Phone: Start: 11-14-2023 End: 11-14-2023 Patient encounter procedure [facility] Work Phone: Start: 09-28-2023 End: 09-28-2023 ambulatory MORALES TORO Not Available Start: 01-25-2023 Office outpatient vi sit 15 minutes Michelle Fisher [facility] Start: 01-25-2023 End: 01-25-2023 ambulatory Michelle Fisher [facility] Other Start: 06-17-2022 End: 06-18-[address] MORALES TORO Facility:H1 Start: 05-02-2022 Encounter for genera l adult medical examination without abnormal findings BRENDA [facility] Start: 04-28-2022 End: 04-29-2022 ambulatory BRENDA CH Facility:[facility]1 Start: 04-28-2022 End: 04-29-2022 Encounter for general adult medical examination without abnormal findings BRENDA CH Facility:[facility] Start: 04-05-2022 End: 04-05-2022 ambulatory Halle Dahl Other Crew Other Start: 04-05-2022 Office outpatient ne w 20 minutes Halle Dahl [facility] Procedures Date Procedure Procedure Detail Performing Clinician Start: 11-14-2023 Plain X-ray of left clavicle Start: 11-14-2023 Plain X-ray of left shoulder Start: 01-25-2023 Piperacillin/tazobactam Michelle Fisher Other Cosmetic surgery Halle no Other Payers Date Payer Category Payer Self-pay 1957 Medicare [id number] 2. [id number] 1955 Unknown [id number] 2.16.84 [id number] 1955 Unknown [id number] 2.16.84 [id number] 1955 Unknown [id number] 2.16.84 [id number] 1955 Unknown [id number] 2.16.8 [id number] 1955 Unknown [id number] 2.16.8 [id number] 1955 Unknown [id number] 2.16.8 [id number] Unknown [id number] 2.16.8 [id number] Unknown [id number] 2.16.8 [id number] Social History Date Type Detail Facility Sex Assigned At Crew Other Start: 1955 Sex Assigned At Female F [facility] Evaluation note 01-25-2023 Note Date & [...] days Jan, Hematuria, unspecified (ICD-10 - R31.9) Crew Other Evaluation note 04-05-2022 Note Date & [...] understanding and is agreeable with treatment plan Crew Other History general Narrative - Reported 08-13-1998 Note Date & Type Note Facility 08-13-1998 History general N arrative - Reported Type Surgical History HYSTERECTOMY w/ bladder suspens ion AUGUST 1998 [facility] Other Evaluation note Note Date & Type Note Facility Evaluation note No assessment information availa [facility] Work Phone: Evaluation note Note Date & Type Note Facility Evaluation note Diagnosis Onset Date Abrasions of multiple sites acute Fracture of left clavicle ac racheal Subungual hematoma of great toe of left foot acute [facility] Medical [facility] Work Phone: Summary Purpose Family History No [...] DATE CREATED AUTHOR AUTHOR'S ORGANIZ ATION 10/01/2023 [facility] EPIC DATE CREATED AUTHOR AUTHOR'S ORGANIZ ATION 11/17/2023 [facility] DATE CREATED AUTHOR AUTHOR'S ORGANIZ ATION 12/04/2023 Tere Leyva [facility] Care Teams (unrecognized sec tion and [...] BE BASED ON THE PRIMARY CLINICAL RECORDS. [employer] provides no warranty or guarantee of the accuracy or completeness of information in this document.
== END 2024-01-22 10:10 | disposition home or self-care (01) ==
LOC: EC 10:09
PROVIDERS: PCP Nurse Practitioner Family; Visit Provider Orthopaedic Surgery
DX: S42.022D Displaced fracture of shaft of left clavicle, subsequent encounter for fracture with routine healing (principal); Z98.890 Other specified postprocedural states
CPT/HCPCS: 73000

== ENCOUNTER 2024-01-24 10:56 | Outpatient (OUT) | payer BC, SELFPAY ==
--- OUTSIDE RECORDS SUMMARY | 2024-01-24 11:18 | XMS_ITS | CCD ---
Author Organization [facility] Care Team Providers Care Movie Star Name Role Phone Halle Dahl Unavailable DR [...] Care Unavailable CARA VALDERRAMA Referring Unavailable SABRINA WILLSI Primary Care Unavailable Medications Current Medications Medication [...] Otto Jr., MD 12/01/23 Final result Normal [facility] XR HIP 2-3 VW W PELVIS LEFTo [...] Otto Jr., MD 12/01/23 Final result Normal [facility] XR clavicle LT*on 11-14-2023 XR clavicle LT* [facility] Main [place] [address] [place], [place] [id number] XRay Report Signed Patient: Sydnee Spencer MR#: [id number] : 1955 Acct:[id number] Age/Sex: 68 / F ADM Date: 11/14/23 Loc: XDUCLY Room: Type: REG CLI Attending Dr: Marilu Olmedo APRN Copies to: Marilu Olmedo APRN Ordering Provider: Marilu Olmedo APRN Date of Service: 11/14/23 XR/XR clavicle LT*: M25.512 - Pain in left shoulder ([id number]) XR/XR shoulder LT min 2V*: M25.512 - [...] Sarita Merritt M.D.11/14/2023 10:45 AM Dictation Location: [place] [address] Transcribed By: [facility] 11/14/23 1045 Dictated By: Sarita Merritt MD 11/14/23 1039 Signed By: 11/14/23 1045 Normal [facility] Urinalysis - AUTOMATEDon Appearance (U) cloudy [employer] Other Bilirubin Ql (U) Negative [employer] Other Color (U) light yellow [employer] Other Glucose Ql (U) Negative [employer] Other Hemoglobin Ql (U) moderate [facility] [employer] Other Ketones Ql (U) Negative [employer] Other Leukocyte esterase Test strip Ql (U) large [employer] Other Nitrite Ql (U) Negative [employer] Other pH (U) 7.0 [pH] [employer] Other Protein Ql (U) Negative [employer] Other Specific gravity (U) [Rel density] 1.010 [employer] Other Urobilinogen (U) [Mass/Vol] 0.2 mg/dL [employer] Other Urinalysis - AUTOMATED [employer] Other Urine Cultureon 01-25-2023 Urine Culture >100,000 [employer] Other Urine Culture <16 Susceptible [employer] Other Urine Culture <8/4 Susceptible [employer] Other Urine Culture <8 Susceptible [employer] Other Urine Culture <4 Susceptible [employer] Other Urine Culture <2 Susceptible [employer] Other Urine Culture <1 Susceptible [employer] Other Urine Culture <0.25 Susceptible [employer] Other Urine Culture <0.5 Susceptible [employer] Other Urine Culture <32 Susceptible [employer] Other Urine Culture <0.5/9.5 Susceptible [employer] Other Bacteria identified Cx Nom (U) ORGANISM: Escherichia coli (O:ESCCOL) [place] Count >100,000 Aerobic TAMI Charge (NMIC56) --- [...] RESISTANT TO ALL B-LACTAM DRUGS. PERFORMED BY: [place] [address] PATHOLOGIST CENTRAL OFFICE WORKER LILLY ACUÑA M.D. Normal [facility] Comment on above: Performed By: #### C UU #### [address] MRI SHOULDER RT WO CONon MRI [...] CARA CANALES Date: 2022-06-17 12:02 Normal The [facility] GLUCOSE BLOODon 04-28-2022 Glucose [Mass/Vol] 92 mg/dL Normal 74-106 [facility] Comment on above: Performed By: #### G ERIC, LIPID #### [facility] [address] [address] [address] Sundar Castillo LIPID PROFILEon 04-28-2022 CHOL-HDL RATIO NORM SEE BELOW Normal [facility] Comment on above: Result Comment: 3.3 - 4.4 LOW RISK 4.4 - 7.1 AVERAGE RISK 7.1 - 11.0 MODERATE RISK >11.0 HIGH RISK Performed By: #### G ERIC, LIPID #### [facility] [address] [address] [address] Sundar Castillo Cholesterol [Mass/Vol] 221 mg/dL Critically high <=200 [facility] Comment on above: Performed By: #### G ERIC, LIPID #### [facility] [address] [address] [address] Sundar Castillo Cholesterol in HDL [Mass/Vol] 91 mg/dL Critically high 40-60 [facility] Comment on above: Performed By: #### G ERIC, LIPID #### [facility] [address] [address] [address] Sundar Castillo Cholesterol in LDL [Mass/Vol] 106.0 mg/dL Normal [facility] Comment on above: Performed By: #### G ERIC, LIPID #### [facility] [address] [place] [address] Dr. Sundar Castillo Cholesterol.total /Cholesterol in HDL [Mass ratio] 2.4 {ratio} Normal [facility] Comment on above: Performed By: #### G ERIC, LIPID #### [facility] [address] [place] [address] Dr. Sundar Castillo HDL NORMAL > or = 60 mg/dl - LO W CARDIOVASCULAR RISK <40 mg/dl - HIGH CARDIOVASCULAR RISK Normal [facility] Comment on above: Performed By: #### G ERIC, LIPID #### [facility] [address] [place] [address] Dr. Sundar Castillo LDL CALC NORMAL SEE BELOW Normal [facility] Comment on above: Result Comment: <100 mg/dl OPTIMAL 100 - 129 mg/dl NEAR OR ABOVE OPTIMAL 130 - 159 mg/dl BORDERLINE HIGH 160 - 189 mg/dl HIGH >190 mg/dl VERY HIGH Performed By: #### G ERIC, LIPID #### [facility] [address] [address] [address] Sundar Castillo Triglyceride [Mass/Vol] 120 mg/dL Normal <=150 [facility] Comment on above: Performed By: #### G ERIC, LIPID #### [facility] [address] [address] [address] Sundar Castillo VLDL CALC 24.0 mg/dL Normal [facility] Comment on above: Performed By: #### G ERIC, LIPID #### [facility] [address] [place] [address] Dr. Sundar Castillo Vital Signs Date Time Vital Sign Value Performing Clinician Facility 11-14-2023 09:23-0400 Body height 161.29 cm [facility] 11-14-2023 09:23-0400 Body mass index (BMI) [Ratio] 19.5 kg/m2 [facility] 11-14-2023 09:23-0400 Body temperature 97.4 [degF] [facility] 11-14-2023 09:23-0400 Body weight 50.91 kg [facility] 11-14-2023 09:23-0400 Diastolic blood pressure 81 mm[Hg] [facility] 11-14-2023 09:23-0400 Heart rate 86 /min [facility] 11-14-2023 09:23-0400 Respiratory rate 18 /min [facility] 11-14-2023 09:23-0400 SaO2% (BldA) [Mass fraction] 98 % [facility] 11-14-2023 09:23-0400 Systolic blood pressure 134 mm[Hg] [facility] 01-25-2023 09:20-0400 Body height 162.56 cm Michelle Caraballomond Other [facility] [employer] Other 01-25-2023 09:20-0400 Body mass index (BMI) [Ratio] 20.97 kg/m2 Michelle Natalia Other [facility] [employer] Other 01-25-2023 09:20-0400 Body temperature 98.1 [degF] Michelle Natalia Other [employer] Other 01-25-2023 09:20-0400 Body weight 55.43 kg Michelle Natalia Other [employer] Other 01-25-2023 09:20-0400 Diastolic blood pressure 85 mm[Hg] Michelle Natalia Other [employer] Other 01-25-2023 09:20-0400 Respiratory rate 18 /min Michelle Natalia Other [employer] Other 01-25-2023 09:20-0400 SaO2% (BldA) [Mass fraction] 100 % Michelle Caraballomond Other [employer] Other 01-25-2023 09:20-0400 Systolic blood pressure 130 mm[Hg] Michelle Caraballomond Other [employer] Other 04-05-2022 10:20-0500 Body height 162.56 cm Halle Dahl Other [employer] Other 04-05-2022 10:20-0500 Body mass index (BMI) [Ratio] 20.6 kg/m2 Halle Dahl Other [employer] Other 04-05-2022 10:20-0500 Body temperature 97.9 [degF] Halle Dahl Other [employer] Other 04-05-2022 10:20-0500 Body weight 54.43 kg Halle Dahl Other [employer] Other 04-05-2022 10:20-0500 Diastolic blood pressure 92 mm[Hg] Halle Dahl Other [employer] Other 04-05-2022 10:20-0500 Respiratory rate 16 /min Halle Dahl Other [employer] Other 04-05-2022 10:20-0500 SaO2% (BldA) [Mass fraction] 99 % Halle Dahl Other [employer] Other 04-05-2022 10:20-0500 Systolic blood pressure 145 mm[Hg] Halle Dahl Other [employer] Other Encounters Encounter Date Encounter Type Care Provider Facility Start: 12-01-2023 End: 12-03-2023 ambulatory CAR[facility] Start: 11-14-2023 End: 11-14-2023 ambulatory NON STAFF [facility] Work Phone: Start: 11-14-2023 End: 11-14-2023 Patient encounter procedure [facility] Work Phone: Start: 09-28-2023 End: 09-28-2023 ambulatory MORALES TORO Not Available Start: 01-25-2023 Office outpatient vi sit 15 minutes Michelle Fisher [facility] Start: 01-25-2023 End: 01-25-2023 ambulatory Michelle Fisher [facility] [employer] Other Start: 06-17-2022 End: 06-18-[address] MORALES TORO Facility:[facility]1 Start: 05-02-2022 Encounter for genera l adult medical examination without abnormal findings BRENDA CH [facility] Start: 04-28-2022 End: 04-29-2022 ambulatory BRENDA CH Facility:[facility]1 Start: 04-28-2022 End: 04-29-2022 Encounter for general adult medical examination without abnormal findings BRENDA CH Facility:[facility]1 Start: 04-05-2022 End: 04-05-2022 ambulatory Halle Dahl Other [employer] Other Start: 04-05-2022 Office outpatient ne w 20 minutes Halle Dahl [facility] Procedures Date Procedure Procedure Detail Performing Clinician Start: 11-14-2023 Plain X-ray of left clavicle Start: 11-14-2023 Plain X-ray of left shoulder Start: 01-25-2023 Piperacillin/tazobactam Michelle Fisher Other Cosmetic surgery Halle no Other Payers Date Payer Category Payer Self-pay 1957 Medicare [id number] 2. [id number] 1955 Unknown [id number] 2.16.84 [id number] 1955 Unknown [id number] 2.16.84 [id number] 1955 Unknown [id number] 2.16.84 [id number] 1955 Unknown [id number] 2.16.8 [id number] 1955 Unknown [id number] 2.16.8 [id number] 1955 Unknown [id number] 2.16.8 [id number] Unknown [id number] 2.16.8 [id number] Unknown [id number] 2.16.8 [id number] Social History Date Type Detail Facility Sex Assigned At [employer] Other Start: 1955 Sex Assigned At Female F [facility] Evaluation note 01-25-2023 Note Date & Type [...] days Jan, Hematuria, unspecified (ICD-10 - R31.9) [employer] Other Evaluation note 04-05-2022 Note Date & [...] understanding and is agreeable with treatment plan [employer] Other History general Narrative - Reported 08-13-1998 Note Date & Type Note Facility 08-13-1998 History general N arrative - Reported Type Surgical History HYSTERECTOMY w/ bladder suspens ion AUGUST 1998 [employer] Other Evaluation note Note Date & Type Note Facility Evaluation note No assessment information availa [facility] Work Phone: Evaluation note Note Date & Type Note Facility Evaluation note Diagnosis Onset Date Abrasions of multiple sites acute Fracture of left clavicle ac racheal Subungual hematoma of great toe of left foot acute [facility] Medical [facility] Work Phone: Summary Purpose Family History [...] DATE CREATED AUTHOR AUTHOR'S ORGANIZ ATION 10/01/2023 [facility] Specialists EPIC DATE CREATED AUTHOR AUTHOR'S ORGANIZ ATION 11/17/2023 [facility] ysician Group DATE CREATED AUTHOR AUTHOR'S ORGANIZ ATION 12/04/2023 Tere Leyva [facility] Care Teams (unrecognized sec tion and [...] BE BASED ON THE PRIMARY CLINICAL RECORDS. [employer] provides no warranty or guarantee of the accuracy or completeness of information in this document.
--- NOTE | 2024-01-24 11:33 | PM.PRESUREVA ---
History of Present Illness History of Present Illness Chief complaint: PAINFUL HARDWARE LEFT CLAVICLE Narrative: Patient presents for preadmission testing. Please see HPI from Dr. Campo dated January 22, 2024. Review of Systems ROS Narrative REVIEW OF SYSTEMS: Negative except as stated in HPI, ten or more systems reviewed. Constitutional: No fever, chills, weakness ENT: No sore throat or epistaxis Cardiovascular: No edema, chest pain, palpitations, or activity intolerance Respiratory: No shortness of breath, cough, or wheezing Gastrointestinal: No abdominal pain, constipation, diarrhea, or vomiting Genitourinary: No dysuria or hematuria Neurological: No numbness, tingling, weakness, or headache Psychiatric: No mood changes PFSH PFSH Medical History (Updated 01/24/24 @ 11:13 by Ignacia Daugherty NP) Retained orthopedic hardware ?Z96.9 - Presence of functional implant, unspecified (ICD-10) Rib fracture (11/14/23) ?S22.39XA - Fracture of one rib, unspecified side, initial encounter for closed fracture (ICD-10) COVID-19 ?U07.1 - COVID-19 (ICD-10) Closed left clavicular fracture (11/14/23) ?S42.002A - Fracture of unspecified part of left clavicle, initial encounter for closed fracture (ICD-10) Surgical History (Updated 01/24/24 @ 11:12 by Ignacia Daugherty NP) History of open reduction and internal fixation (ORIF) procedure (11/17/23) ?Z98.890 - Other specified postprocedural states (ICD-10) History of bladder suspension procedure ?Z98.890 - Other specified postprocedural states (ICD-10) ?Z87.448 - Personal history of other diseases of urinary system (ICD-10) History of colonoscopy ?Z98.890 - Other specified postprocedural states (ICD-10) History of hysterectomy ?Z90.710 - Acquired absence of both cervix and uterus (ICD-10) Family History (Updated 11/15/23 @ 14:25 by Ignacia Daugherty NP) Other Family history of aneurysm Family history of cancer Family history of diabetes mellitus Family history of seizures Family history of stroke Social History (Updated 11/17/23 @ 08:34 by Lucero Downs) Within the past year, how often did you have a drink containing alcohol: 2-3 times a week Smoking status: Former smoker Non-prescribed substance use: denies use Previous occupational history: retired Highest level of school completed/degree received: some college, no degree Meds Home Medications and Allergies Home Medications ?Medication ?Instructions ?Recorded ?Confirmed ?Type Bioidentical HRT compound 11/15/23 History multivitamin (Daily Multi-Vitamin 1 tab PO DAILY 11/15/23 01/24/24 History tablet) Allergies Allergy/AdvReac Type Severity Reaction Status Date / Time No Known Drug Allergies Allergy Verified 01/24/24 11:17 Exam Narrative Exam Narrative: Constitutional: Awake, alert, comfortable, well-appearing, nontoxic, interactive, vital signs as charted Head: Normocephalic, atraumatic Eyes: Conjunctiva and lids normal to inspection, pupils normal ENT: Tympanic membranes pearly baum, nonerythematous, noninjected, naris patent, posterior oropharynx clear, oral mucosa moist Neck: Supple, normal appearance, normal range of motion, no meningeal signs, no lymphadenopathy Respiratory: No respiratory distress, breath sounds clear Cardiovascular: Regular rate and rhythm, strong and regular heart tones Skin: No rashes or induration, no lesions, only visible skin inspected Neuro: No neurological deficits, normal sensation Psychiatric: Oriented ?3, normal affect Assessment and Plan Assessment and Plan (1) Retained orthopedic hardware: Plan Left clavicle deep implant removal drooled with Dr. Campo February 05, 2024.
[2024-01-24 11:43] LABS: Basophils Percent Auto 0.6 % (0.2-2.0); Eosinophils Absolute Auto 0.1 10^3/uL (0.0-0.7); Eosinophils Percent Auto 1.5 % (0.9-7.0); Hematocrit 38.3 % (36.0-48.0); Hemoglobin 12.8 g/dL (12.0-16.0); Immature Granulocytes Abs Auto 0.01 10^3/uL (0.00-0.03); Immature Granulocytes Pct Auto 0.2 % (0.0-0.5); Lymphocytes Absolute Auto 1.7 10^3/uL (1.2-3.8); Lymphocytes Percent Auto 31.7 % (20.5-60.0); Mean Corpuscular HGB Conc 33.4 g/dL (29.9-35.2); Mean Corpuscular Hemoglobin 32.8 pg (26.7-34.0); Mean Corpuscular Volume 98.2 fL (81.0-99.0); Monocytes Absolute Auto 0.4 10^3/uL (0.3-0.8); Monocytes Percent Auto 7.5 % (1.7-12.0); Neutrophils Absolute Auto 3.1 10^3/uL (1.4-6.5); Neutrophils Percent Auto 58.5 % (43.0-75.0); Platelet Count 267 10^3/uL (150-450); White Blood Count 5.2 10^3/uL (4.0-11.0)
[2024-01-24 12:18] LABS: BUN Creatinine Ratio 14.7; Calcium 8.8 mg/dL (8.5-10.1); Carbon Dioxide 30.3 mmol/L (21.0-32.0); Chloride 100 mmol/L (98-107); Estimated GFR (African America >60 (>=60); Estimated GFR (Non-African Ame >60 (>=60); Glucose 92 mg/dL (74-106); Potassium 4.3 mmol/L (3.5-5.1); Sodium 134 mmol/L (136-145)
== END 2024-01-24 10:57 | disposition home or self-care (01) ==
LOC: PST 10:58
PROVIDERS: PCP Nurse Practitioner Family; Visit Provider Orthopaedic Surgery
DX: Z01.812 Encounter for preprocedural laboratory examination (principal); Z01.818 Encounter for other preprocedural examination; Z45.89 Encounter for adjustment and management of other implanted devices
CPT/HCPCS: 36415; 80048; 85025; G0463

== ENCOUNTER 2024-02-05 12:29 | Day surgery (SDC) | payer BC, SELFPAY ==
[2024-01-24 11:31] VITALS: BP 144/88; PULSE 60; TEMP 36.5; O2SAT 98; BMI 19.9
[2024-02-05] VITALS (9 sets, daily range): BP systolic 114–160; BP diastolic 66–87; PULSE 69–86; TEMP 36.2–36.7; O2SAT 70–98; BMI 20.1
[2024-02-05] MEDS: LACTATED RINGER'S SOLUTION 1,000 ML 50 ML IV (13:02)
[2024-02-05] MEDS: CEFAZOLIN SODIUM 2 GM/50 ML D5W PREMIX IV (13:09)
[2024-02-05] MEDS: LIDOCAINE HCL 1%-EPINEPHRINE 1:100,000 10 ML MDV INJ (14:08)
[2024-02-05] MEDS: BUPIVACAINE HCL 0.5% PF 50 MG/10 ML VIAL INJ (14:10)
--- NOTE | 2024-02-05 14:20 | P.ORPRC_ITS ---
Procedure Note Date of procedure: 02/05/24 Pre-op diagnosis: Left clavicle deep implant Post-op diagnosis: same as pre-op Procedure: Procedure: Removal deep implant left clavicle Operative procedure: After informed consent was obtained the patient brought to the operating room where general anesthetic was administered. The left chest overlying the clavicle incision was prepped and draped in usual sterile fashion. 15 blade was utilized to incise the skin at the previous incision site. Hemostasis achieved with Bovie. Clavicle plate and screws were removed without difficulty. Fracture line was no longer visualized. Clavicle moved as 1 unit. The wound wa s irrigated. Deep layer was closed with #1 Vicryl in interrupted fashion. Skin was closed with absorbable suture in layers. Steri-Strips and sterile dressing were placed. Wound was infiltrated with 5 mL 1% lidocaine with epinephrine combined with 5 mL 0.5% Marcaine plain. Patient was brought to the recovery room in stable condition. There were no intraoperative or immediate postoperative complications. Surgeon: Hollis Campo Estimated blood loss (mL): 10 Pathology: none sent Condition: stable Disposition: PACU
== END 2024-02-05 15:21 | disposition home or self-care (01) ==
PROVIDERS: PCP Nurse Practitioner Family; Visit Provider Orthopaedic Surgery
PROC: (CPT 450; principal; 2024-02-05 13:25)
DX: T84.84XA Pain due to internal orthopedic prosthetic devices, implants and grafts, initial encounter (principal); Z87.891 Personal history of nicotine dependence; Z90.710 Acquired absence of both cervix and uterus; Z96.9 Presence of functional implant, unspecified
CPT/HCPCS: 20680; 36415; J0131; J0665; J0690; J1100; J1885; J2250; J2405; J2704; J3010

== ENCOUNTER 2024-02-19 10:50 | Outpatient (OUT) | payer BC, SELFPAY ==
--- NOTE | 2024-02-19 | XR_ITS ---
[address] [address] Patient Name: MIKA SPENCER MRN: [id number] date: 1955 Sex: F Assigned Patient Location: Current Patient Location: Accession/Order Number: [id number] Exam Date: 02/19/2024 11:05 Report Date: 02/21/2024 05:29 At the request of: CARA VALDERRAMA Procedure: XR clavicle LT PROCEDURE: XR clavicle LT HISTORY: LEFT CLAVICLE PAIN COMPARISON: XR clavicle left 01/22/2024 FINDINGS: BONES:Remote fracture of mid left clavicle with slight apex angulation. Interval removal of the previously seen plate and screws. Mild degenerative changes of the acromioclavicular joint. SOFT TISSUES:No visible soft tissue swelling. EFFUSION:None visible. OTHER: Negative. XR/XR clavicle LT IMPRESSION: 1. 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 2. Interval removal of fixation plate. Electronically authenticated by: CARA CANALES Date: 02/21/2024 05:29
--- OUTSIDE RECORDS SUMMARY | 2024-02-19 11:06 | XMS_ITS | CCD ---
Author Organization [facility] Care Team Providers Care Pie Chef Name Role Phone Halle Dahl Unavailable DR [...] Otto Jr., MD 12/01/23 Final result Normal [facility] XR HIP 2-3 VW W PELVIS LEFTo [...] Otto Jr., MD 12/01/23 Final result Normal [facility] XR clavicle LT*on 11-14-2023 XR clavicle LT* [facility] Main [place] [address] [place], [place] [id number] XRay Report Signed Patient: Sydnee Spencer MR#: [id number] : 1955 Acct:[id number] Age/Sex: 68 / F ADM Date: 11/14/23 Loc: XDUCLY Room: Type: REG CLI Attending Dr: Marilu Olmedo APRN Copies to: Marilu Olmedo APRN Ordering Provider: Marilu Olmedo APRN Date of Service: 11/14/23 XR/XR clavicle LT*: M25.512 - Pain in left shoulder ([id number]) XR/XR shoulder LT min 2V*: M25.512 - [...] Sarita Merritt M.D.11/14/2023 10:45 AM Dictation Location: [place] [address] Transcribed By: [facility] 11/14/23 1045 Dictated By: Sarita Merritt MD 11/14/23 1039 Signed By: 11/14/23 1045 Normal [facility] Urinalysis - AUTOMATEDon Appearance (U) cloudy Jenn Rykert Other Bilirubin Ql (U) Negative [employer] Other Color (U) light yellow [facility] Other Glucose Ql (U) Negative Jenn Rykert Other Hemoglobin Ql (U) moderate [facility] Other Ketones Ql (U) Negative Jenn Rykert Other Leukocyte esterase Test strip Ql (U) large [facility] Other Nitrite Ql (U) Negative Jenn Rykert Other pH (U) 7.0 [pH] [facility] Other Protein Ql (U) Negative Jenn Rykert Other Specific gravity (U) [Rel density] 1.010 [facility] Other Urobilinogen (U) [Mass/Vol] 0.2 mg/dL [facility] Other Urinalysis - AUTOMATED [facility] Other Urine Cultureon 01-25-2023 Urine Culture >100,000 [facility] Other Urine Culture <16 Susceptible Jenn Rykert Other Urine Culture <8/4 Susceptible Jenn Rykert Other Urine Culture <8 Susceptible Jenn Rykert Other Urine Culture <4 Susceptible Jenn Rykert Other Urine Culture <2 Susceptible Jenn Rykert Other Urine Culture <1 Susceptible Jenn Rykert Other Urine Culture <0.25 Susceptible Jenn Rykert Other Urine Culture <0.5 Susceptible Jenn Rykert Other Urine Culture <32 Susceptible Jenn Rykert Other Urine Culture <0.5/9.5 Susceptible Jenn Rykert Other Bacteria identified Cx Nom (U) ORGANISM: Escherichia coli (O:ESCCOL) [place] Count >100,000 Aerobic TAMI Charge (NMIC56) --- [...] RESISTANT TO ALL B-LACTAM DRUGS. PERFORMED BY: [place] [address] PATHOLOGIST SURGICAL SCHEDULER LILLY ACUÑA M.D. Normal [facility] Comment on above: Performed By: #### C UU #### [address] MRI SHOULDER RT WO CONon MRI [...] CARA CANALES Date: 2022-06-17 12:02 Normal [facility] GLUCOSE BLOODon 04-28-2022 Glucose [Mass/Vol] 92 mg/dL Normal 74-106 [facility] Comment on above: Performed By: #### G ERIC, LIPID #### [facility] [address] [address] [address] Sundar Castillo LIPID PROFILEon 04-28-2022 CHOL-HDL RATIO NORM SEE BELOW Normal [facility] Comment on above: Result Comment: 3.3 - 4.4 LOW RISK 4.4 - 7.1 AVERAGE RISK 7.1 - 11.0 MODERATE RISK >11.0 HIGH RISK Performed By: #### G ERIC, LIPID #### [facility] [address] [address] [address] Sundar Castillo Cholesterol [Mass/Vol] 221 mg/dL Critically high <=200 [facility] Comment on above: Performed By: #### G ERIC, LIPID #### [facility] [address] [address] [address] Sundar Castillo Cholesterol in HDL [Mass/Vol] 91 mg/dL Critically high 40-60 [facility] Comment on above: Performed By: #### G ERIC, LIPID #### [facility] [address] [address] [address] Sundar Castillo Cholesterol in LDL [Mass/Vol] 106.0 mg/dL Normal [facility] Comment on above: Performed By: #### G ERIC, LIPID #### [facility] [address] [place] [address] Dr. Sundar Castillo Cholesterol.total /Cholesterol in HDL [Mass ratio] 2.4 {ratio} Normal [facility] Comment on above: Performed By: #### G ERIC, LIPID #### [facility] [address] [place] [address] Dr. Sundar Castillo HDL NORMAL > or = 60 mg/dl - LO W CARDIOVASCULAR RISK <40 mg/dl - HIGH CARDIOVASCULAR RISK Normal [facility] Comment on above: Performed By: #### G ERIC, LIPID #### [facility] [address] [place] [address] Dr. Sundar Castillo LDL CALC NORMAL SEE BELOW Normal [facility] Comment on above: Result Comment: <100 mg/dl OPTIMAL 100 - 129 mg/dl NEAR OR ABOVE OPTIMAL 130 - 159 mg/dl BORDERLINE HIGH 160 - 189 mg/dl HIGH >190 mg/dl VERY HIGH Performed By: #### G ERIC, LIPID #### [facility] [address] [address] [address] Sundar Castillo Triglyceride [Mass/Vol] 120 mg/dL Normal <=150 [facility] Comment on above: Performed By: #### G ERIC, LIPID #### [facility] [address] [address] [address] Sundar Castillo VLDL CALC 24.0 mg/dL Normal [facility] Comment on above: Performed By: #### G ERIC, LIPID #### [facility] [address] [place] [address] Dr. Sundar Castillo Vital Signs Date Time Vital Sign Value Performing Clinician Facility 11-14-2023 09:23-0400 Body height 161.29 cm [facility] 11-14-2023 09:23-0400 Body mass index (BMI) [Ratio] 19.5 kg/m2 [facility] 11-14-2023 09:23-0400 Body temperature 97.4 [degF] [facility] 11-14-2023 09:23-0400 Body weight 50.91 kg [facility] 11-14-2023 09:23-0400 Diastolic blood pressure 81 mm[Hg] [facility] 11-14-2023 09:23-0400 Heart rate 86 /min [facility] 11-14-2023 09:23-0400 Respiratory rate 18 /min [facility] 11-14-2023 09:23-0400 SaO2% (BldA) [Mass fraction] 98 % [facility] 11-14-2023 09:23-0400 Systolic blood pressure 134 mm[Hg] [facility] 01-25-2023 09:20-0400 Body height 162.56 cm Michelle Caraballomond Other [facility] [email or web address] Other 01-25-2023 09:20-0400 Body mass index (BMI) [Ratio] 20.97 kg/m2 Michelle Natalia Other [facility] [email or web address] Other 01-25-2023 09:20-0400 Body temperature 98.1 [degF] Michelle Natalia Other [facility] Other 01-25-2023 09:20-0400 Body weight 55.43 kg Michelle Natalia Other [facility] Other 01-25-2023 09:20-0400 Diastolic blood pressure 85 mm[Hg] Michelle Natalia Other [facility] Other 01-25-2023 09:20-0400 Respiratory rate 18 /min Michelle Natalia Other [facility] Other 01-25-2023 09:20-0400 SaO2% (BldA) [Mass fraction] 100 % Michelle Caraballomond Other [facility] Other 01-25-2023 09:20-0400 Systolic blood pressure 130 mm[Hg] Michelle Caraballomond Other [facility] Other 04-05-2022 10:20-0500 Body height 162.56 cm Halle Dahl Other [facility] Other 04-05-2022 10:20-0500 Body mass index (BMI) [Ratio] 20.6 kg/m2 Halle Dahl Other [facility] Other 04-05-2022 10:20-0500 Body temperature 97.9 [degF] Halle Dahl Other [facility] Other 04-05-2022 10:20-0500 Body weight 54.43 kg Halle Dahl Other [facility] Other 04-05-2022 10:20-0500 Diastolic blood pressure 92 mm[Hg] Halle Dahl Other [facility] Other 04-05-2022 10:20-0500 Respiratory rate 16 /min Halle Dahl Other [facility] Other 04-05-2022 10:20-0500 SaO2% (BldA) [Mass fraction] 99 % Halle Dahl Other [facility] Other 04-05-2022 10:20-0500 Systolic blood pressure 145 mm[Hg] Halle Dahl Other [facility] Other Encounters Encounter Date Encounter Type Care Provider Facility Start: 12-01-2023 End: 12-03-2023 ambulatory CARA [facility] Start: 11-14-2023 End: 11-14-2023 ambulatory NON STAFF [facility] Work Phone: Start: 11-14-2023 End: 11-14-2023 Patient encounter procedure [facility] Work Phone: Start: 09-28-2023 End: 09-28-2023 ambulatory MORALES TORO Not Available Start: 01-25-2023 Office outpatient vi sit 15 minutes Michelle Fisher [facility] Start: 01-25-2023 End: 01-25-2023 ambulatory Michelle Fisher [facility] [facility] Other Start: 06-17-2022 End: 06-18-[address] MORALES TORO Facility:[facility] Start: 05-02-2022 Encounter for genera l adult medical examination without abnormal findings BRENDA CH [facility] Start: 04-28-2022 End: 04-29-2022 ambulatory BRENDA CH Facility:[facility] Start: 04-28-2022 End: 04-29-2022 Encounter for general adult medical examination without abnormal findings BRENDA CH Facility:[facility] Start: 04-05-2022 End: 04-05-2022 ambulatory Halle Dahl Other [facility] Other Start: 04-05-2022 Office outpatient ne w 20 minutes Halle Dahl [facility] Procedures Date Procedure Procedure Detail Performing Clinician Start: 11-14-2023 Plain X-ray of left clavicle Start: 11-14-2023 Plain X-ray of left shoulder Start: 01-25-2023 Piperacillin/tazobactam Michelle Fisher Other Cosmetic surgery Halle no Other Payers Date Payer Category Payer Self-pay 1957 Medicare [id number] 2. [id number] 1955 Unknown [id number] 2.16.84 [id number] 1955 Unknown [id number] 2.16.84 [id number] 1955 Unknown [id number] 2.16.84 [id number] 1955 Unknown [id number] 2.16.8 [id number] 1955 Unknown [id number] 2.16.8 [id number] 1955 Unknown [id number] 2.16.8 [id number] Unknown [id number] 2.16.8 [id number] Unknown [id number] 2.16.8 [id number] Social History Date Type Detail Facility Sex Assigned At [facility] Other Start: 1955 Sex Assigned At Female F [facility] Evaluation note 01-25-2023 Note Date & [...] days Jan, Hematuria, unspecified (ICD-10 - R31.9) [facility] Other Evaluation note 04-05-2022 Note Date & [...] understanding and is agreeable with treatment plan [facility] Other History general Narrative - Reported 08-13-1998 Note Date & Type Note Facility 08-13-1998 History general N arrative - Reported Type Surgical History HYSTERECTOMY w/ bladder suspens ion AUGUST 1998 [facility] Other Evaluation note Note Date & Type Note Facility Evaluation note No assessment information availa [facility] Work Phone: Evaluation note Note Date & Type Note Facility Evaluation note Diagnosis Onset Date Abrasions of multiple sites acute Fracture of left clavicle [place] Sub[place] hematoma of great toe of left foot acute [facility] Work Phone: Summary Purpose Family History [...] DATE CREATED AUTHOR AUTHOR'S ORGANIZ ATION 10/01/2023 [facility] EPIC DATE CREATED AUTHOR AUTHOR'S ORGANIZ ATION 11/17/2023 [facility] DATE CREATED AUTHOR AUTHOR'S ORGANIZ ATION 12/04/2023 Tere Leyva [facility] Care Teams (unrecognized sec tion and content) [...] Care Provider Active Start: November 14, 2023 Mairlu Olmedo APRN Attending Provider Active Start: November [...] BE BASED ON THE PRIMARY CLINICAL RECORDS. [employer] provides no warranty or guarantee of the accuracy or completeness of information in this document.
== END 2024-02-19 10:51 | disposition home or self-care (01) ==
LOC: EC 10:50
PROVIDERS: PCP Nurse Practitioner Family; Visit Provider Orthopaedic Surgery
DX: S42.002P Fracture of unspecified part of left clavicle, subsequent encounter for fracture with malunion (principal)
CPT/HCPCS: 73000

== ENCOUNTER 2024-02-29 11:46 | Outpatient (OUT) | payer BC, SELFPAY ==
--- OUTSIDE RECORDS SUMMARY | 2024-02-29 11:48 | XMS_ITS | CCD ---
Author Organization [facility] Care Team Providers Care Underwriting Director Name Role Phone Halle Dahl Unavailable DR MORALES TORO Primary Care Unavailable DR CARA CANALES Consulting Unavailable TAY AZUL Attending Unavailable TAY AZUL Admitting Unavailable TAY AZUL Consulting Unavailable BRENDA CH Consulting Unavailable DR MORALES TORO Primary Care Unavailable BRENDA CH Attending Unavailable BRENDA HC Admitting Unavailable Michelle Fisher Unavailable MORALES TORO [...] Otto Jr., MD 12/01/23 Final result Normal [facility] XR HIP 2-3 VW W [...] Otto Jr., MD 12/01/23 Final result Normal [facility] XR clavicle LT*on 11-14-2023 XR clavicle LT* [facility] Main [place] [address] [place], [place] [id number] XRay Report Signed Patient: Sydnee Spencer MR#: [id number] : 1955 Acct:[id number] Age/Sex: 68 / F ADM Date: 11/14/23 Loc: XDUCLY Room: Type: REG CLI Attending Dr: Marilu Olmedo APRN Copies to: Marilu Olmedo APRN Ordering Provider: Marilu Olmedo APRN Date of Service: 11/14/23 XR/XR clavicle LT*: M25.512 - Pain in left shoulder ([id number]) XR/XR shoulder LT min 2V*: M25.512 - [...] Sarita Merritt M.D.11/14/2023 10:45 AM Dictation Location: [place] [address] Transcribed By: [facility] 11/14/23 1045 Dictated By: Sarita Merritt MD 11/14/23 1039 Signed By: 11/14/23 1045 Normal [facility] Urinalysis - AUTOMATEDon Appearance (U) cloudy [employer] Other Bilirubin Ql (U) Negative [employer] Other Color (U) light yellow [employer] Other Glucose Ql (U) Negative [employer] Other Hemoglobin Ql (U) moderate [facility] Other Ketones Ql (U) Negative [employer] Other Leukocyte esterase Test strip Ql (U) large [employer] Other Nitrite Ql (U) Negative [employer] Other pH (U) 7.0 [pH] [employer] Other Protein Ql (U) Negative [employer] Other Specific gravity (U) [Rel density] 1.010 [employer] Other Urobilinogen (U) [Mass/Vol] 0.2 mg/dL [employer] Other Urinalysis - AUTOMATED [employer] Other Urine Cultureon 01-25-2023 Urine Culture >100,000 [employer] Other Urine Culture <16 Susceptible [employer] Other Urine Culture <8/4 Susceptible [employer] Other Urine Culture <8 Susceptible [employer] Other Urine Culture <4 Susceptible [employer] Other Urine Culture <2 Susceptible [employer] Other Urine Culture <1 Susceptible [employer] Other Urine Culture <0.25 Susceptible [employer] Other Urine Culture <0.5 Susceptible [employer] Other Urine Culture <32 Susceptible [employer] Other Urine Culture <0.5/9.5 Susceptible [employer] Other Bacteria identified Cx Nom (U) ORGANISM: Escherichia coli (O:ESCCOL) [place] Count >100,000 Aerobic TAMI Charge (NMIC56) --- [...] RESISTANT TO ALL B-LACTAM DRUGS. PERFORMED BY: [place] [address] PATHOLOGIST VICE PRESIDENT OF ENGINEERING LILLY ACUÑA M.D. Normal [facility] Comment on above: Performed By: #### C UU #### [address] MRI SHOULDER RT WO CONon MRI [...] CARA CANALES Date: 2022-06-17 12:02 Normal [facility] GLUCOSE BLOODon 04-28-2022 Glucose [Mass/Vol] 92 mg/dL Normal 74-106 [facility] Comment on above: Performed By: #### G ERIC, LIPID #### [facility] [address] [address] [address] Sundar Castillo LIPID PROFILEon 04-28-2022 CHOL-HDL RATIO NORM SEE BELOW Normal [facility] Comment on above: Result Comment: 3.3 - 4.4 LOW RISK 4.4 - 7.1 AVERAGE RISK 7.1 - 11.0 MODERATE RISK >11.0 HIGH RISK Performed By: #### G ERIC, LIPID #### [facility] [address] [address] [address] Sundar Castillo Cholesterol [Mass/Vol] 221 mg/dL Critically high <=200 [facility] Comment on above: Performed By: #### G ERIC, LIPID #### [facility] [address] [address] [address] Sundar Castillo Cholesterol in HDL [Mass/Vol] 91 mg/dL Critically high 40-60 [facility] Comment on above: Performed By: #### G ERIC, LIPID #### [facility] [address] [address] [address] uSndar Castillo Cholesterol in LDL [Mass/Vol] 106.0 mg/dL Normal [facility] Comment on above: Performed By: #### G ERIC, LIPID #### [facility] [address] [place] [address] Dr. Sundar Castillo Cholesterol.total /Cholesterol in HDL [Mass ratio] 2.4 {ratio} Normal [facility] Comment on above: Performed By: #### G ERIC, LIPID #### [facility] [address] [place] [address] Dr. Sundar Castillo HDL NORMAL > or = 60 mg/dl - LO W CARDIOVASCULAR RISK <40 mg/dl - HIGH CARDIOVASCULAR RISK Normal [facility] Comment on above: Performed By: #### G ERIC, LIPID #### [facility] [address] [place] [address] Dr. Sundar Castillo LDL CALC NORMAL SEE BELOW Normal [facility] Comment on above: Result Comment: <100 mg/dl OPTIMAL 100 - 129 mg/dl NEAR OR ABOVE OPTIMAL 130 - 159 mg/dl BORDERLINE HIGH 160 - 189 mg/dl HIGH >190 mg/dl VERY HIGH Performed By: #### G ERIC, LIPID #### [facility] [address] [address] [address] Sundar Castillo Triglyceride [Mass/Vol] 120 mg/dL Normal <=150 [facility] Comment on above: Performed By: #### G ERIC, LIPID #### [facility] [address] [address] [address] Sundar Castillo VLDL CALC 24.0 mg/dL Normal [facility] Comment on above: Performed By: #### G ERIC, LIPID #### [facility] [address] [place] [address] Dr. Sundar Castillo Vital Signs Date Time Vital Sign Value Performing Clinician Facility 11-14-2023 09:23-0400 Body height 161.29 cm [facility] 11-14-2023 09:23-0400 Body mass index (BMI) [Ratio] 19.5 kg/m2 [facility] 11-14-2023 09:23-0400 Body temperature 97.4 [degF] [facility] 11-14-2023 09:23-0400 Body weight 50.91 kg [facility] 11-14-2023 09:23-0400 Diastolic blood pressure 81 mm[Hg] [facility] 11-14-2023 09:23-0400 Heart rate 86 /min [facility] 11-14-2023 09:23-0400 Respiratory rate 18 /min [facility] 11-14-2023 09:23-0400 SaO2% (BldA) [Mass fraction] 98 % [facility] 11-14-2023 09:23-0400 Systolic blood pressure 134 mm[Hg] [facility] 01-25-2023 09:20-0400 Body height 162.56 cm Michelle Caraballomond Other [facility] Other 01-25-2023 09:20-0400 Body mass index (BMI) [Ratio] 20.97 kg/m2 Michelle Natalia Other [facility] Other 01-25-2023 09:20-0400 Body temperature 98.1 [degF] Michelle Natalia Other [employer] Other 01-25-2023 09:20-0400 Body weight 55.43 kg Michelle Natalia Other [employer] Other 01-25-2023 09:20-0400 Diastolic blood pressure 85 mm[Hg] Michelle Natalia Other [employer] Other 01-25-2023 09:20-0400 Respiratory rate 18 /min Michelle Natalia Other [employer] Other 01-25-2023 09:20-0400 SaO2% (BldA) [Mass fraction] 100 % Michelle Caraballomond Other [employer] Other 01-25-2023 09:20-0400 Systolic blood pressure 130 mm[Hg] Michelle Caraballomond Other [employer] Other 04-05-2022 10:20-0500 Body height 162.56 cm Halle Dahl Other [employer] Other 04-05-2022 10:20-0500 Body mass index (BMI) [Ratio] 20.6 kg/m2 Halle Dahl Other [employer] Other 04-05-2022 10:20-0500 Body temperature 97.9 [degF] Halle Dahl Other [employer] Other 04-05-2022 10:20-0500 Body weight 54.43 kg Halle Dahl Other [employer] Other 04-05-2022 10:20-0500 Diastolic blood pressure 92 mm[Hg] Halle Dahl Other [employer] Other 04-05-2022 10:20-0500 Respiratory rate 16 /min Halle Dahl Other [employer] Other 04-05-2022 10:20-0500 SaO2% (BldA) [Mass fraction] 99 % Halle Dahl Other [employer] Other 04-05-2022 10:20-0500 Systolic blood pressure 145 mm[Hg] Halle Dahl Other [employer] Other Encounters Encounter Date Encounter Type Care Provider Facility Start: 12-01-2023 End: 12-03-2023 ambulatory CARA Sarah WINTERVAL[facility]JOSE [facility] Start: 11-14-2023 End: 11-14-2023 ambulatory NON STAFF [facility] Work Phone: Start: 11-14-2023 End: 11-14-2023 Patient encounter procedure [facility] Work Phone: Start: 09-28-2023 End: 09-28-2023 ambulatory MORALES TORO Not Available Start: 01-25-2023 Office outpatient vi sit 15 minutes Michelle Fisher [facility] Start: 01-25-2023 End: 01-25-2023 ambulatory Michelle Fisher [facility] [employer] Other Start: 06-17-2022 End: 06-18-[address] MORALES TORO Facility:[facility]1 Start: 05-02-2022 Encounter for genera l adult medical examination without abnormal findings BRENDA CH [facility] Start: 04-28-2022 End: 04-29-2022 ambulatory BRENDA CH Facility:[facility]1 Start: 04-28-2022 End: 04-29-2022 Encounter for general adult medical examination without abnormal findings BRENDA CH Facility:[facility]1 Start: 04-05-2022 End: 04-05-2022 ambulatory Halle Dahl Other [employer] Other Start: 04-05-2022 Office outpatient ne w 20 minutes Halle Dahl [facility] Procedures Date Procedure Procedure Detail Performing Clinician Start: 11-14-2023 Plain X-ray of left clavicle Start: 11-14-2023 Plain X-ray of left shoulder Start: 01-25-2023 Piperacillin/tazobactam Michelle Fisher Other Cosmetic surgery Halle no Other Payers Date Payer Category Payer Self-pay 1957 Medicare [id number] 2. [id number] 1955 Unknown [id number] 2.16.84 [id number] 1955 Unknown [id number] 2.16.84 [id number] 1955 Unknown [id number] 2.16.84 [id number] 1955 Unknown [id number] 2.16.8 [id number] 1955 Unknown [id number] 2.16.8 [id number] 1955 Unknown [id number] 2.16.8 [id number] Unknown [id number] 2.16.8 [id number] Unknown [id number] 2.16.8 [id number] Social History Date Type Detail Facility Sex Assigned At [employer] Other Start: 1955 Sex Assigned At Female F [facility] Evaluation note 01-25-2023 Note Date & Type [...] days Jan, Hematuria, unspecified (ICD-10 - R31.9) [employer] Other Evaluation note 04-05-2022 Note Date & [...] understanding and is agreeable with treatment plan [employer] Other History general Narrative - Reported 08-13-1998 Note Date & Type Note Facility 08-13-1998 History general N arrative - Reported Type Surgical History HYSTERECTOMY w/ bladder suspens ion AUGUST 1998 [employer] Other Evaluation note Note Date & Type Note Facility Evaluation note No assessment information availa [facility] Work Phone: Evaluation note Note Date & Type Note Facility Evaluation note Diagnosis Onset Date Abrasions of multiple sites acute Fracture of left clavicle ac [place] Subungual hematoma of great toe of left foot acute [facility] Work Phone: Summary Purpose Family [...] DATE CREATED AUTHOR AUTHOR'S ORGANIZ ATION 10/01/2023 [facility] EPIC DATE CREATED AUTHOR AUTHOR'S ORGANIZ ATION 11/17/2023 [facility] DATE CREATED AUTHOR AUTHOR'S ORGANIZ ATION 12/04/2023 Tere Leyva [facility] Care Teams (unrecognized sec tion and [...] BE BASED ON THE PRIMARY CLINICAL RECORDS. [employer] provides no warranty or guarantee of the accuracy or completeness of information in this document.
[2024-02-29 13:17] LABS: Basophils Percent Auto 0.7 % (0.2-2.0); Eosinophils Absolute Auto 0.1 10^3/uL (0.0-0.7); Eosinophils Percent Auto 3.1 % (0.9-7.0); Hematocrit 41.8 % (36.0-48.0); Hemoglobin 13.5 g/dL (12.0-16.0); Lymphocytes Absolute Auto 2.1 10^3/uL (1.2-3.8); Lymphocytes Percent Auto 49.8 % (20.5-60.0); Mean Corpuscular HGB Conc 32.3 g/dL (29.9-35.2); Mean Corpuscular Hemoglobin 32.1 pg (26.7-34.0); Mean Corpuscular Volume 99.5 fL (81.0-99.0); Mean Platelet Volume 9.7 fL (9.5-13.5); Monocytes Absolute Auto 0.4 10^3/uL (0.3-0.8); Monocytes Percent Auto 8.7 % (1.7-12.0); Neutrophils Absolute Auto 1.6 10^3/uL (1.4-6.5); Neutrophils Percent Auto 37.7 % (43.0-75.0); Platelet Count 296 10^3/uL (150-450); Red Cell Distribution Width 12.1 % (11.0-15.0); White Blood Count 4.2 10^3/uL (4.0-11.0)
[2024-02-29 14:16] LABS: Alanine Aminotransferase 22 U/L (14-59); Albumin Globulin Ratio 1.2; Albumin Level 3.9 g/dL (3.4-5.0); Alkaline Phosphatase 68 U/L (46-116); Anion Gap 13.7; Aspartate Amino Transferase 53 U/L (15-37); BUN Creatinine Ratio 14.4; Bilirubin Total 0.7 mg/dL (0.2-1.0); Calcium 9.2 mg/dL (8.5-10.1); Carbon Dioxide 28.4 mmol/L (21.0-32.0); Chloride 103 mmol/L (98-107); Chol HDL Ratio 2.4; Cholesterol 224 mg/dL (<=200); Estimated GFR (African America >60 (>=60 mL/min/1.73m^2); Estimated GFR (Non-African Ame 57 (>=60 mL/min/1.73m^2); Globulin 3.2 g/dL; Glucose 73 mg/dL (74-106); HDL Cholesterol 94 mg/dL (40-60); Potassium 4.1 mmol/L (3.5-5.1); Sodium 141 mmol/L (136-145); Total Protein 7.1 g/dL (6.4-8.2); Triglycerides 79 mg/dL (<=150); VLDL CHOLESTEROL 15.8 mg/dL
[2024-02-29 14:39] LABS: Estimated Average Glucose 100 mg/dL; Glycohemoglobin A1C 5.1 % (4.5-6.2)
== END 2024-02-29 11:47 | disposition home or self-care (01) ==
LOC: LAB 11:46
PROVIDERS: PCP Nurse Practitioner Family; Visit Provider Nurse Practitioner Family
DX: Z00.00 Encounter for general adult medical examination without abnormal findings (principal); Z23 Encounter for immunization
CPT/HCPCS: 80053; 80061; 83036; 84443; 85025; 90674

== ENCOUNTER 2024-04-01 08:38 | Outpatient (OUT) | payer BC, SELFPAY ==
--- NOTE | 2024-04-01 | XR_ITS ---
The [address] [address] Patient Name: MIKA SPENCER MRN: [id number] date: 1955 Sex: F Assigned Patient Location: Current Patient Location: Accession/Order Number: [id number] Exam Date: 04/01/2024 08:40 Report Date: 04/02/2024 06:59 At the request of: CARA VALDERRAMA Procedure: XR clavicle LT PROCEDURE: XR clavicle LT HISTORY: LEFT CLAVICLE PAIN COMPARISON: XR clavicle left 02/19/2024 FINDINGS: BONES:Healing mid left clavicle fracture with callus formation and increased density of the fracture line. Slight cephalad apex angulation. SOFT TISSUES:No visible soft tissue swelling. EFFUSION:None visible. OTHER: Negative. XR/XR clavicle LT IMPRESSION: 1. Stable alignment and ongoing bone healing of prior left clavicle fracture. Electronically authenticated by: CARA CANALES Date: 04/02/2024 06:59
--- OUTSIDE RECORDS SUMMARY | 2024-04-01 08:57 | XMS_ITS | CCD ---
Author Organization [facility] Care Team Providers Care Cook Mess Name Role Phone Halle Dahl Unavailable DR [...] Otto Jr., MD 12/01/23 Final result Normal [facility] XR HIP 2-3 VW W PELVIS [...] Otto Jr., MD 12/01/23 Final result Normal [facility] XR clavicle LT*on 11-14-2023 XR clavicle LT* [facility] Main [place] [address] [place], [place] [id number] XRay Report Signed Patient: Sydnee Spencer MR#: [id number] : 1955 Acct:[id number] Age/Sex: 68 / F ADM Date: 11/14/23 Loc: XDUCLY Room: Type: REG CLI Attending Dr: Marilu Olmedo APRN Copies to: Marilu Olmedo APRN Ordering Provider: Marilu Olmedo APRN Date of Service: 11/14/23 XR/XR clavicle LT*: M25.512 - Pain in left shoulder ([id number]) XR/XR shoulder LT min 2V*: M25.512 - [...] Sarita Merritt M.D.11/14/2023 10:45 AM Dictation Location: [place] [address] Transcribed By: [facility] 11/14/23 1045 Dictated By: Sarita Merritt MD 11/14/23 1039 Signed By: 11/14/23 1045 Normal [facility] Urinalysis - AUTOMATEDon Appearance (U) cloudy [employer] Other Bilirubin Ql (U) Negative [employer] Other Color (U) light yellow [employer] Other Glucose Ql (U) Negative [employer] Other Hemoglobin Ql (U) moderate [facility] [employer] Other Ketones Ql (U) Negative [employer] Other Leukocyte esterase Test strip Ql (U) large [employer] Other Nitrite Ql (U) Negative [employer] Other pH (U) 7.0 [pH] [employer] Other Protein Ql (U) Negative [employer] Other Specific gravity (U) [Rel density] 1.010 [employer] Other Urobilinogen (U) [Mass/Vol] 0.2 mg/dL [employer] Other Urinalysis - AUTOMATED [employer] Other Urine Cultureon 01-25-2023 Urine Culture >100,000 [employer] Other Urine Culture <16 Susceptible [employer] Other Urine Culture <8/4 Susceptible [employer] Other Urine Culture <8 Susceptible [employer] Other Urine Culture <4 Susceptible [employer] Other Urine Culture <2 Susceptible [employer] Other Urine Culture <1 Susceptible [employer] Other Urine Culture <0.25 Susceptible [employer] Other Urine Culture <0.5 Susceptible [employer] Other Urine Culture <32 Susceptible [employer] Other Urine Culture <0.5/9.5 Susceptible [employer] Other Bacteria identified Cx Nom (U) ORGANISM: Escherichia coli (O:ESCCOL) [place] Count >100,000 Aerobic TAMI Charge (NMIC56) --- [...] RESISTANT TO ALL B-LACTAM DRUGS. PERFORMED BY: [place] [id number] PATHOLOGIST PREFORM MACHINE OPERATOR LILLY ACUÑA M.D. Normal [facility] Comment on above: Performed By: #### C UU #### [address] MRI SHOULDER RT WO CONon MRI [...] CARA CANALES Date: 2022-06-17 12:02 Normal [facility] GLUCOSE BLOODon 04-28-2022 Glucose [Mass/Vol] 92 mg/dL Normal 74-106 [facility] Comment on above: Performed By: #### G ERIC, LIPID #### [facility] [address] [address] [address] Sundar Castillo LIPID PROFILEon 04-28-2022 CHOL-HDL RATIO NORM SEE BELOW Normal [facility] Comment on above: Result Comment: 3.3 - 4.4 LOW RISK 4.4 - 7.1 AVERAGE RISK 7.1 - 11.0 MODERATE RISK >11.0 HIGH RISK Performed By: #### G ERIC, LIPID #### [facility] [address] [address] [address] Sundar Castillo Cholesterol [Mass/Vol] 221 mg/dL Critically high <=200 [facility] Comment on above: Performed By: #### G ERIC, LIPID #### [facility] [address] [address] [address] Sundar Castillo Cholesterol in HDL [Mass/Vol] 91 mg/dL Critically high 40-60 [facility] Comment on above: Performed By: #### G ERIC, LIPID #### [facility] [address] [address] [address] Sundar Castillo Cholesterol in LDL [Mass/Vol] 106.0 mg/dL Normal [facility] Comment on above: Performed By: #### G ERIC, LIPID #### [facility] [address] [place] [address] Dr. Sundar Castillo Cholesterol.total /Cholesterol in HDL [Mass ratio] 2.4 {ratio} Normal [facility] Comment on above: Performed By: #### G ERIC, LIPID #### [facility] [address] [place] [address] Dr. Sundar Castillo HDL NORMAL > or = 60 mg/dl - LO W CARDIOVASCULAR RISK <40 mg/dl - HIGH CARDIOVASCULAR RISK Normal [facility] Comment on above: Performed By: #### G ERIC, LIPID #### [facility] [address] [place] [address] Dr. Sundar Castillo LDL CALC NORMAL SEE BELOW Normal [facility] Comment on above: Result Comment: <100 mg/dl OPTIMAL 100 - 129 mg/dl NEAR OR ABOVE OPTIMAL 130 - 159 mg/dl BORDERLINE HIGH 160 - 189 mg/dl HIGH >190 mg/dl VERY HIGH Performed By: #### G ERIC, LIPID #### [facility] [address] [address] [address] Sundar Castillo Triglyceride [Mass/Vol] 120 mg/dL Normal <=150 [facility] Comment on above: Performed By: #### G ERIC, LIPID #### [facility] [address] [address] [address] Sundar Castillo VLDL CALC 24.0 mg/dL Normal [facility] Comment on above: Performed By: #### G ERIC, LIPID #### [facility] [address] [place] [address] Dr. Sundar Castillo Vital Signs Date Time Vital Sign Value Performing Clinician Facility 11-14-2023 09:23-0400 Body height 161.29 cm [facility] 11-14-2023 09:23-0400 Body mass index (BMI) [Ratio] 19.5 kg/m2 [facility] 11-14-2023 09:23-0400 Body temperature 97.4 [degF] [facility] 11-14-2023 09:23-0400 Body weight 50.91 kg [facility] 11-14-2023 09:23-0400 Diastolic blood pressure 81 mm[Hg] [facility] 11-14-2023 09:23-0400 Heart rate 86 /min [facility] 11-14-2023 09:23-0400 Respiratory rate 18 /min [facility] 11-14-2023 09:23-0400 SaO2% (BldA) [Mass fraction] 98 % [facility] 11-14-2023 09:23-0400 Systolic blood pressure 134 mm[Hg] [facility] 01-25-2023 09:20-0400 Body height 162.56 cm Michelle Caraballomond Other [facility] [employer] Other 01-25-2023 09:20-0400 Body mass index (BMI) [Ratio] 20.97 kg/m2 Michelle Natlaia Other [facility] [employer] Other 01-25-2023 09:20-0400 Body temperature 98.1 [degF] Michelle Natalia Other [employer] Other 01-25-2023 09:20-0400 Body weight 55.43 kg Michelle Natalia Other [employer] Other 01-25-2023 09:20-0400 Diastolic blood pressure 85 mm[Hg] Michelle Natalia Other [employer] Other 01-25-2023 09:20-0400 Respiratory rate 18 /min Michelle Natalia Other [employer] Other 01-25-2023 09:20-0400 SaO2% (BldA) [Mass fraction] 100 % Michelle Caraballomond Other [employer] Other 01-25-2023 09:20-0400 Systolic blood pressure 130 mm[Hg] Michelle Caraballomond Other [employer] Other 04-05-2022 10:20-0500 Body height 162.56 cm Halle Dahl Other [employer] Other 04-05-2022 10:20-0500 Body mass index (BMI) [Ratio] 20.6 kg/m2 Halle Dahl Other [employer] Other 04-05-2022 10:20-0500 Body temperature 97.9 [degF] Halle Dahl Other [employer] Other 04-05-2022 10:20-0500 Body weight 54.43 kg Halle Dahl Other [employer] Other 04-05-2022 10:20-0500 Diastolic blood pressure 92 mm[Hg] Halle Dahl Other [employer] Other 04-05-2022 10:20-0500 Respiratory rate 16 /min Halle Dahl Other [employer] Other 04-05-2022 10:20-0500 SaO2% (BldA) [Mass fraction] 99 % Halle Dahl Other [employer] Other 04-05-2022 10:20-0500 Systolic blood pressure 145 mm[Hg] Halle Dahl Other [employer] Other Encounters Encounter Date Encounter Type Care Provider Facility Start: 12-01-2023 End: 12-03-2023 ambulatory CARA [facility]SE [facility] Start: 11-14-2023 End: 11-14-2023 ambulatory NON STAFF [facility] Work Phone: Start: 11-14-2023 End: 11-14-2023 Patient encounter procedure [facility] Work Phone: Start: 09-28-2023 End: 09-28-2023 ambulatory MORALES TORO Not Available Start: 01-25-2023 Office outpatient vi sit 15 minutes Michelle Fisher [facility] Start: 01-25-2023 End: 01-25-2023 ambulatory Michelle Fisher [facility] [employer] Other Start: 06-17-2022 End: 06-18-[address] MORALES TORO Facility:[facility]1 Start: 05-02-2022 Encounter for genera l adult medical examination without abnormal findings BRENDA CH [facility] Start: 04-28-2022 End: 04-29-2022 ambulatory BRENDA CH Facility:[facility] Start: 04-28-2022 End: 04-29-2022 Encounter for general adult medical examination without abnormal findings BRENDA CH Facility:[facility] Start: 04-05-2022 End: 04-05-2022 ambulatory Halle Dahl Other [employer] Other Start: 04-05-2022 Office outpatient ne w 20 minutes Halle Dahl [facility] Procedures Date Procedure Procedure Detail Performing Clinician Start: 11-14-2023 Plain X-ray of left clavicle Start: 11-14-2023 Plain X-ray of left shoulder Start: 01-25-2023 Piperacillin/tazobactam Michelle Fisher Other Cosmetic surgery Halle no Other Payers Date Payer Category Payer Self-pay 1957 Medicare [id number] 2. [id number] 1955 Unknown [id number] 2.16.84 [id number] 1955 Unknown [id number] 2.16.84 [id number] 1955 Unknown [id number] 2.16.84 [id number] 1955 Unknown [id number] 2.16.8 [id number] 1955 Unknown [id number] 2.16.8 [id number] 1955 Unknown [id number] 2.16.8 [id number] Unknown [id number] 2.16.8 [id number] Unknown [id number] 2.16.8 [id number] Social History Date Type Detail Facility Sex Assigned At [employer] Other Start: 1955 Sex Assigned At Female F [facility] Evaluation note 01-25-2023 Note Date & [...] days Jan, Hematuria, unspecified (ICD-10 - R31.9) [employer] Other Evaluation note 04-05-2022 Note Date & [...] understanding and is agreeable with treatment plan [employer] Other History general Narrative - Reported 08-13-1998 Note Date & Type Note Facility 08-13-1998 History general N arrative - Reported Type Surgical History HYSTERECTOMY w/ bladder suspens ion AUGUST 1998 [employer] Other Evaluation note Note Date & Type Note Facility Evaluation note No assessment information availa [facility] Work Phone: Evaluation note Note Date & Type Note Facility Evaluation note Diagnosis Onset Date Abrasions of multiple sites acute Fracture of left clavicle ac [place] Subungual hematoma of great toe of left foot acute [facility] Work Phone: Summary Purpose [...] DATE CREATED AUTHOR AUTHOR'S ORGANIZ ATION 10/01/2023 [facility] EPIC DATE CREATED AUTHOR AUTHOR'S ORGANIZ ATION 11/17/2023 [facility] DATE CREATED AUTHOR AUTHOR'S ORGANIZ ATION 12/04/2023 Tere Leyva [facility] Care Teams (unrecognized sec tion and [...] BE BASED ON THE PRIMARY CLINICAL RECORDS. [employer] provides no warranty or guarantee of the accuracy or completeness of information in this document.
== END 2024-04-01 08:39 | disposition home or self-care (01) ==
LOC: EC 08:38
PROVIDERS: PCP Nurse Practitioner Family; Visit Provider Orthopaedic Surgery
DX: S42.002D Fracture of unspecified part of left clavicle, subsequent encounter for fracture with routine healing (principal)
CPT/HCPCS: 73000

== ENCOUNTER 2025-01-27 09:47 | Outpatient (OUT) | payer MEDICARE, SELFPAY ==
--- OUTSIDE RECORDS SUMMARY | 2025-01-27 09:53 | XMS_ITS | Encounter Summary ---
Author Organization [facility] Address [address] [place] [facility] [address] Care Team Providers Care Principal Engineer Name Role Phone Santos Gayle MD Unavailable [phone] Santos Gayle MD Primary Care Provider [phone] Micah Traylor MD Primary Care Provider + Santos Gayle MD Unavailable [phone] Encounter Details Date Type Department Care Team (Late st Contact Info) Description 01/19/2023 Abstract [facility] [place] 521 Family Medicine [address] [facility] [address] Santos Gayle MD 112 [facility] 100 [place] [address] (Fax) Social History Tobacco Use Types Packs/Day Years Used Date Smoking Tobacco: Never Passive Smoke Exposure: Never Smokeless Tobacco: Never Alcohol Use Standard Drinks/Week Comments Yes 2 (1 standard drink = 0.6 oz pur e alcohol) Comments No Sex and Gender Information Value Date Recorded Sex Assigned at Not on file Legal Sex Female 6:47 PM EDT Gender Identity Not on file Sexual Orientation Not on file documented as of this encounter Plan of Treatment Not on file documented as of this encounter Visit Diagnoses Not on filedocumented in this encounter Care Teams Principal Engineer Relationship Specialty Start Date End Date Santos Gayle MD 112 [facility] 100 [place] [address] (Fax) PCP - [place] [employer] 08/13/2004/13 Santos Gayle MD [address] [place] [address] PCP - General Family Medicine 11/21/22 10/02/23 Micah Traylor MD [address] [place] [address] PCP - General Family Medicine 10/03/23 Santos Gayle MD [address] [facility] [facility] [address] [place] [address] PCP - [place] [employer] 09/13/23 documented as of this encounter
--- OUTSIDE RECORDS SUMMARY | 2025-01-27 09:54 | XMS_ITS | Encounter Summary ---
Author Organization [facility] Address [address] [facility] [place] [address] Care Team Providers Care Boot Liner Maker Name Role Phone Micah Traylor MD Primary Care Provider [phone] Encounter Details Date Type Department Care Team (Late st Contact Info) Description 09/26/2024 Abstract [facility] [place] [address] Family Medicine 112 [facility] 100 [place] [address] Santos Gayle MD 112 [facility] 100 [place] [address] Social History Tobacco Use Types Packs/Day Years Used Date Smoking Tobacco: Never Passive Smoke Exposure: Never Smokeless Tobacco: Never Alcohol Use Standard Drinks/Week Comments Yes 2 (1 standard drink = 0.6 oz pur e alcohol) Social Connection and Isolation Panel [NHANES] A nswer Date Recorded In a typical week, how many times do you talk on the phone with family, friends, or neighbors? Patient declined 09/27/2023 How often do you get togethe r with friends or relatives? Patient declined 09/27/2023 How often do you attend taoist or yazidism serv ices? Patient declined 09/27/2023 Do you belong to any clubs o r organizations such as taoist groups, unions, fraternal or athletic groups, or school groups? Yes 09/27/2023 How often do you attend meet ings of the clubs or organizations you belong to? Patient declined 09/27/2023 Are you , , di vorced, , never , or living with a partner? 09/27/2023 AUDIT-C Answer Date Recorded Q1: How often do you have a drink containing alc ohol? Patient declined 09/27/2023 Q2: How many drinks containi ng alcohol do you have on a typical day when you are drinking? Patient declined 09/27/2023 Q3: How often do you have si x or more drinks on one occasion? Patient declined 09/27/2023 Overall Financial Resource Strain (CARDIA) Answe r Date Recorded How hard is it for you to pa y for the very basics like food, housing, medical care, and heating? Patient declined 09/27/2023 Hunger Vital Sign Answer Date Recorded Within the past 12 months, y ou worried that your food would run out before you got the money to buy more. Patient declined Within the past 12 months, t he food you bought just didn't last and you didn't have money to get more. Patient declined PRAPARE - Transportation Answer Date Re corded In the past 12 months, has l ack of transportation kept you from medical appointments or from getting medications? Patient declined 09/27/2023 In the past 12 months, has l ack of transportation kept you from meetings, work, or from getting things needed for daily living? Patient declined 09/27/2023 Housing Stability Vital Sign Answer Christiano e Recorded In the last 12 months, was t here a time when you were not able to pay the mortgage or rent on time? Patient declined 09/27/19 24 In the last 12 months, how many places have you lived? 1 09/27/2023 In the last 12 months, was t here a time when you did not have a steady place to sleep or slept in a snf (including now)? Patient declined 09/27/2023 Comments No Sex and Gender Information Value Date Recorded Sex Assigned at Not on file Legal Sex Female 6:47 PM EDT Gender Identity Not on file Sexual Orientation Not on file documented as of this encounter Plan of Treatment Not on file documented as of this encounter Visit Diagnoses Not on filedocumented in this encounter Care Teams Boot Liner Maker Relationship Specialty Start Date End Date Micah Traylor MD PCP - General Family Medicine 10/03/23 documented as of this encounter
--- OUTSIDE RECORDS SUMMARY | 2025-01-27 09:54 | XMS_ITS | Clinical Summary ---
Author Organization [facility] Address [address] [facility] [place] [address] Care Team Providers Care Dental Office Coordinator Name Role Phone Micah Traylor MD Primary Care Provider [phone] Social History Tobacco Use Types Packs/Day Years Used Date Smoking Tobacco: Never Assessed Comments Unknown Sex and Gender Information Value Date Recorded Sex Assigned at Not on file Legal Sex Female 9:54 AM EDT Gender Identity Not on file Sexual Orientation Not on file Plan of Treatment Health Maintenance Due Date Last Done Comments Depression Screen 1969 Hepatitis C screen 1975 Lipids 1997 Colonoscopy 2002 Colorectal Cancer Screen 2002 FIT/FOBT: Average risk 2002 Fecal-DNA (Cologuard): Average risk 2002 Sigmoidoscopy/CT colonography 2002 Pneumococcal 50+ years Vaccine (1 of 1 - PCV) 2007 Breast cancer screen 01/22/2023 01/22/2021, 12/05/19 20 DTaP/Tdap/Td vaccine (2 - Td or Tdap) 10/12/2023 10/11/2013 Flu vaccine (#1) 12/13/2024 03/31/2023, , 02/08/2019, Additional history exists COVID-19 Vaccine ( - season) 2025 03/25/2021, 08/11/2020, 07/20/2020 Respiratory Syncytial Virus (RSV) or age 60 yrs+ (1 - 1-dose 75+ series) 2032 Shingles vaccine Completed 06/11/2019, 02/08/2019 DEXA (modify frequency per FRAX score) Completed 11/19/2019 Hepatitis A vaccine Aged Out No longe r eligible based on patient's age to complete this topic Hepatitis B vaccine Aged Out No longe r eligible based on patient's age to complete this topic Hib vaccine Aged Out No longer eligi ble based on patient's age to complete this topic Meningococcal (ACWY) vaccine Aged Out No longer eligible based on patient's age to complete this topic Meningococcal B vaccine Aged Out No l onger eligible based on patient's age to complete this topic Polio vaccine Aged Out No longer elig ible based on patient's age to complete this topic Insurance [place] [facility] Care Teams Dental Office Coordinator Relationship Specialty Start Date End Date Micah Traylor MD [address] [place] [address] PCP - General Family Medicine 11/29/23
--- OUTSIDE RECORDS SUMMARY | 2025-01-27 09:54 | XMS_ITS | Encounter Summary ---
Author Organization [facility] Address [address] [place] [address] Care Team Providers Care Environmental Compliance Inspector Name Role Phone Santos Gayle MD Primary Care Provider + [phone] Micah Traylor MD Primary Care Provider + Santos Gayle MD Unavailable [phone] Encounter Details Date Type Department Care Team (Late st Contact Info) Description 09/21/2023 Orders Only [facility] [place] 521 Family Medicine [address] [place] [address] Santos Gayle MD [address] [address] Social History Tobacco Use Types Packs/Day Years [...] on file documented as of this encounter Procedures Procedure Name Priority Date/Time Associated Diagnosis Comments MISCELLANEOUS LAB TEST Routine 09/20/2023 2:19 PM EDT documented in this encounter Results * - Miscellaneous Test (09/20/2023 2:19 PM EDT) Santos Gayle MD LAB BLOOD ORDERABLES Final R esult documented in this encounter Visit Diagnoses Not on filedocumented in this encounter Care Teams Environmental Compliance Inspector Relationship Specialty Start Date End Date Santos Gayle MD PCP - General Family Medicine 11/21/22 10/02/23 Micah Traylor MD PCP - General Family Medicine 10/03/23 Santos Gayle MD [address] [place] [address] PCP - Jessica Kinney 09/13/23 documented as of this encounter
--- OUTSIDE RECORDS SUMMARY | 2025-01-27 09:54 | XMS_ITS | Encounter Summary ---
Author Organization [facility] Address [address] [facility] [place] [address] Care Team Providers Care Turntable Worker Name Role Phone Micah Traylor MD Primary Care Provider [phone] Santos Gayle MD Unavailable [phone] Encounter Details Date Type Department Care Team (Late st Contact Info) Description 05/14/2024 Abstract [facility] [place] [address] [facility] 100 [place] [address] Santos Gayle MD 112 [facility] 100 [place] [address] Social History Tobacco Use Types Packs/Day Years [...] declined 09/27/2023 How often do you attend sikh or bahai serv ices? Patient declined 09/27/2023 Do you belong to any clubs o r organizations such as sikh groups, unions, fraternal or athletic groups, or [...] place to sleep or slept in a detention (including now)? Patient declined 09/27/2023 Comments No Sex and Gender Information Value Date Recorded Sex Assigned at Not on file Legal Sex Female 6:47 PM EDT Gender Identity Not on file Sexual Orientation Not on file documented as of this encounter Plan of Treatment Not on file documented as of this encounter Visit Diagnoses Not on filedocumented in this encounter Care Teams Turntable Worker Relationship Specialty Start Date End Date Micah Traylor MD PCP - General Family Medicine 10/03/23 Santos Gayle MD [address] [address] PCP - Jessica Kinney 09/13/23 documented as of this encounter
--- OUTSIDE RECORDS SUMMARY | 2025-01-27 09:54 | XMS_ITS | Encounter Summary ---
Author Organization [facility] Address [address] [facility] [place] [address] Care Team Providers Care Scenic Designer Name Role Phone Micah Traylor MD Primary Care Provider [phone] Encounter Details Date Type Department Care Team (Late st Contact Info) Description 09/23/2024 Orders Only [facility] [place] 100 Family Medicine 112 [facility] 100 [place] [address] Santos Gayle MD 112 [facility] 100 [place] [address] Social History Tobacco Use Types Packs/Day Years [...] declined 09/27/2023 How often do you attend islam or shinto serv ices? Patient declined 09/27/2023 Do you belong to any clubs o r organizations such as islam groups, unions, fraternal or athletic groups, or [...] place to sleep or slept in a fdc (including now)? Patient declined 09/27/2023 Comments No [...] Associated Diagnosis Comments MISCELLANEOUS LAB TEST Routine 09/23/2024 11:49 AM EDT documented in this encounter Results * - Miscellaneous Test (09/23/2024 11:49 AM EDT) Santos Gayle MD LAB BLOOD ORDERABLES Final R esult documented in this encounter Visit Diagnoses Not on filedocumented in this encounter Care Teams Scenic Designer Relationship Specialty Start Date End Date Micah Traylor MD PCP - General Family Medicine 10/03/23 documented as of this encounter
--- OUTSIDE RECORDS SUMMARY | 2025-01-27 09:54 | XMS_ITS | Encounter Summary ---
Author Organization [facility] Address [address] [facility] [place] [address] Care Team Providers Care Director Of Infection Prevention Name Role Phone Santos Gayle MD Primary Care Provider + [phone] Micah Traylor MD Primary Care Provider + Santos Gayle MD Unavailable [phone] Encounter Details Date Type Department Care Team (Late st Contact Info) Description 09/28/2023 Abstract [facility] [place] 521 Family Medicine [address] [facility] [address] Santos Gayle MD 112 [facility] 100 [place] [address] (Fax) Social History Tobacco Use Types Packs/Day [...] declined 09/27/2023 How often do you attend mandaeism or sikh serv ices? Patient declined 09/27/2023 Do you belong to any clubs o r organizations such as mandaeism groups, unions, fraternal or athletic groups, or [...] place to sleep or slept in a fci (including now)? Patient declined 09/27/2023 Comments No Sex and Gender Information Value Date Recorded Sex Assigned at Not on file Legal Sex Female 6:47 PM EDT Gender Identity Not on file Sexual Orientation Not on file documented as of this encounter Plan of Treatment Not on file documented as of this encounter Visit Diagnoses Not on filedocumented in this encounter Care Teams Director Of Infection Prevention Relationship Specialty Start Date End Date Santos Gayle MD PCP - General Family Medicine 11/21/22 10/02/23 Micah Traylor MD PCP - General Family Medicine 10/03/23 Santos Gayle MD [address] [place] [address] PCP - [place] [employer] 09/13/23 documented as of this encounter
--- OUTSIDE RECORDS SUMMARY | 2025-01-27 09:54 | XMS_ITS | Clinical Summary ---
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 Symptomatic menopausal or female climacteric sta deena 08/17/2023 Hormone replacement therapy (postmenopausal) 08/2023 Immunizations Immunization Administration Dates Next Due Influenza, Seasonal, Quadriv alent, Adjuvanted 03/31/2023 Influenza, injectable, MDCK, preservative free, quadrivalent 05/25/2017 Influenza, injectable, quadrivalent 03/12/2015 Influenza, injectable, quadr ivalent, preservative free 02/24/2022,02/08/2019,03/22/2018,2016 Tdap 10/11/2013 Zoster, Recombinant 06/11/2019,02/08/2019 Family History Medical History Relation Name Comments Diabetes Father Dad Lung cancer Father Dad Alzheimer's disease Mother Mom Diabetes Mother Mom Mental illness Mother Mom Brain Aneurysm Sister oldest sister Mental Dysfunction Sister younger s ister Relation Name Status Comments Daughter Alive Father Dad Mother Mom Sister x2 Son Alive Social History Tobacco Use Types Packs/Day Years Used Date Smoking Tobacco: Never Passive Smoke Exposure: Never Smokeless Tobacco: Never Tobacco Cessation:Counseling Given: Yes Alcohol Use Standard Drinks/Week Comments Yes 2 [...] declined 09/27/2023 How often do you attend caodaism or denominational serv ices? Patient declined 09/27/2023 Do you belong to any clubs o r organizations such as caodaism groups, unions, fraternal or athletic groups, or [...] place to sleep or slept in a mcc (including now)? Patient declined 09/27/2023 Comments No Sex and Gender Information Value Date Recorded Sex Assigned at Not on file Legal Sex Female 6:47 PM EDT Gender Identity Not on file Sexual Orientation Not on file Last Filed Vital Signs Vital Sign Reading Time Taken Comments Blood Pressure 118/68 01/13/2020 12:00 PM EDT Pulse - - Temperature - - Respiratory Rate - - Oxygen Saturation - - Inhaled Oxygen Concentration - - Weight 55.3 kg (122 lb) 09/26/2024 10:57 AM EDT Height 161.3 cm (5' 3.5 ) 09/26/2024 10:57 AM ED T Body Mass Index 21.27 09/26/2024 10:57 AM EDT Plan of Treatment Health Maintenance Due Date Last Done Comments CT Colonography 1957 Colonoscopy 1957 Colorectal Cancer Screening 1957 FIT-DNA 1957 FIT 1957 FOBT 1955 Sigmoidoscopy 1955 Pneumococcal Vaccine: 65+ Ye ars (1 of 1 - PCV) 2007 Mammogram 01/22/2022 01/22/2021, 12/05/2019 Influenza Vaccine (#1) 2025 3, 02/24/2022, 02/08/2019, Additional history exists Procedures Procedure Name Priority Date/Time Associated Diagnosis Comments BI MAMMOGRAM SCREENING TOMOSYNTHESIS BILATERAL Routine 01/22/2021 from Last 3 Months or Most Recently Relevant to Health Maintenance Results * Bilateral screening mammogram with tomosynthesis (01/22/2021) Anatomical Region Laterality Modality Breast Bilateral Mammography Narrative 01/22/2021 12:00 AM EDT PERFORMED AT [facility] LOCATION:[place] [address] Patient: TJ Spears. Exam Date: 01/22/2021 : 1955 Gender:F Ordering : DR MORALES TORO . Admission #: [id number] Family : Order #: [id number] CLICK HERE TO VIEW EXAM RADIOLOGY REPORT PROCEDURE: MAMMOGRAM SCREENING 3D BILATERAL CAD COMPARISON: MG MAMM SCREEN ERWIN W CAD 12/09/2016. MG MAMM SCREEN ERWIN W CAD 12/05/2019. INDICATIONS: Screening mammography Calculator Name NCI Breast Cancer Risk Assessment Tool 5 Year Breast Cancer Risk 1.30% Lifetime Breast Cancer Risk 5.50% Personal Breast Cancer No Personal Ovarian Cancer No Treatments None Family Cancers None LOCATION: [facility] BREAST COMPOSITION: Heterogeneously dense which may obscure small masses. FINDINGS: DIAGNOSTIC CATEGORY 1--NEGATIVE ASSESSMENT. RIGHT BREAST: No significant suspicious finding. No significant change has occurred. LEFT BREAST: No significant suspicious finding. No significant change has occurred. RECOMMENDATIONS: ROUTINE MAMMOGRAM AND CLINICAL EVALUATION IN 12 MONTHS. PLEASE NOTE: A NORMAL MAMMOGRAM DOES NOT EXCLUDE THE POSSIBILITY OF BREAST CANCER. A CLINICALLY SUSPICIOUS PALPABLE LUMP SHOULD BE BIOPSIED. Dictated by: Hollis Merino M.D. on 01/22/2021 at 09:53 Approved by: Hollis Merino M.D. on 01/22/2021 at 09:57 Procedure Note CONVERSION, GENERIC - 11/18/2022 PERFORMED AT [facility] LOCATION:[place] [address] Patient: TJ Jackson Exam Date: 01/22/2021 : 1955 Gender:F Ordering : DR MORALES TORO . Admission #: [id number] Family : Order #: [id number] CLICK HERE TO VIEW EXAM RADIOLOGY REPORT PROCEDURE: MAMMOGRAM SCREENING 3D BILATERAL CAD COMPARISON: MG MAMM SCREEN ERWIN W CAD 12/09/2016. MG MAMM SCREEN ERWIN W CAD 12/05/2019. INDICATIONS: Screening mammography Calculator Name NCI Breast Cancer Risk Assessment Tool 5 Year Breast Cancer Risk 1.30% Lifetime Breast Cancer Risk 5.50% Personal Breast Cancer No Personal Ovarian Cancer No Treatments None Family Cancers None LOCATION: [facility] BREAST COMPOSITION: Heterogeneously dense which may obscure small masses. FINDINGS: DIAGNOSTIC CATEGORY 1--NEGATIVE ASSESSMENT. RIGHT BREAST: No significant suspicious finding. No significant changehas occurred. LEFT BREAST: No significant suspicious finding. No significant changehas occurred. RECOMMENDATIONS: ROUTINE MAMMOGRAM AND CLINICAL EVALUATION IN 12 MONTHS. PLEASE NOTE: A NORMAL MAMMOGRAM DOES NOT EXCLUDE THE POSSIBILITY OFBREAST CANCER. A CLINICALLY SUSPICIOUS PALPABLE LUMP SHOULD BE BIOPSIED. Dictated by: Hollis Merino M.D. on 01/22/2021 at 09:53 Approved by: Hollis Merino M.D. on 01/22/2021 at 09:57 Morales Toro MD IMG BI PROCEDURES Final Resu lt from Last 3 Months or Most Recently Relevant to Health Maintenance Insurance [facility] Care Teams Rehab Rn Relationship Specialty Start Date End Date Micah Traylor MD PCP - General Family Medicine 10/03/23
--- OUTSIDE RECORDS SUMMARY | 2025-01-27 09:54 | XMS_ITS | Encounter Summary ---
Author Organization [facility] Address [address] [facility] [place] [address] Care Team Providers Care Passenger Car Cleaning Supervisor Name Role Phone Santos Gayle MD Unavailable [phone] Santos Gayle MD Primary Care Provider [phone] Micah Traylor MD Primary Care Provider + Santos Gayle MD Unavailable [phone] Encounter Details Date Type Department Care Team (Late st Contact Info) Description 01/30/2023 Abstract [facility] [place] 521 Family Medicine [address] [facility] [place] [place] [address] Santos Gayle MD 112 [facility] 100 [place] [address] (Fax) Social History Tobacco Use Types Packs/Day [...] on filedocumented in this encounter Care Teams Passenger Car Cleaning Supervisor Relationship Specialty Start Date End Date Santos Gayle MD 112 [facility] 100 [place] [address] (Fax) PCP - [place] [employer] 08/13/2004/13 Santos Gayle MD [address] [place] [address] PCP - General Family Medicine 11/21/22 10/02/23 Micah Traylor MD [address] [place] [address] PCP - General Family Medicine 10/03/23 Santos Gayle MD [address] [facility] [address] [place] [address] PCP - [place] [employer] 09/13/23 documented as of this encounter
[2025-01-27 10:19] LABS: Glucose Urine UA NEGATIVE (NEGATIVE)
[2025-01-27 10:54] LABS: Cast Seen? NONE SEEN #/LPF (NONE SEEN); Crystals Seen? None Seen #/HPF (None Seen); Urine Culture Indicated ALREADY ORDERED
== END 2025-01-27 09:48 | disposition home or self-care (01) ==
PROVIDERS: PCP Nurse Practitioner Family; Visit Provider Nurse Practitioner Family
DX: R30.0 Dysuria (principal)
CPT/HCPCS: 81001; 87086; 87088; 87186

== ENCOUNTER 2025-02-18 09:39 | Outpatient (OUT) | payer MEDICARE, SELFPAY ==
--- OUTSIDE RECORDS SUMMARY | 2025-02-18 09:43 | XMS_ITS | Patient Health Record ---
Author Organization The [facility] in [place] Address [address] [place] [address] Care Team Providers Care Mosaic Floor Layer Name Role Phone Michelle Etienne Primary Care Provider [phone] Jaxson Traylor [phone] Allergies No Known Allergies Results Component Value Reference Range Notes XR CLAVICLE LT Reviewed date:04/02/2024 04:23:42 PM Interpretation: Performing Lab: Notes/Report: Source Facility: [place] [address] XRay Report Signed Patient: SYDNEE SPENCER MR#: [id number] : 1955 Acct:[id number] Age/Sex: 68 / F ADM Date: 04/01/24 Loc: EC Attending Dr: Hollis Valderrama M.D. Ordering Physician: Hollis Valderrama M.D. Date of Service: 04/01/24 Procedure(s): XR clavicle LT Accession Number(s): [id number] cc: MICHELLE ETIENNE ; Hollis Valderrama M.D. The [address] [address] Patient Name: SYDNEE SPENCER MRN: [id number] date: 1955 Sex: F Assigned Patient Location: Current Patient Location: Accession/Order Number: [id number] Exam Date: 04/01/2024 08:40 Report Date: 04/02/2024 06:59 At the request of: HOLLIS C VALDERRAMA Procedure: XR clavicle LT PROCEDURE: XR clavicle LT HISTORY: LEFT CLAVICLE PAIN COMPARISON: XR clavicle left 02/19/2024 FINDINGS: BONES:Healing mid left clavicle fracture with callus formation and increased density of the fracture line. Slight cephalad apex angulation. SOFT TISSUES:No visible soft tissue swelling. EFFUSION:None visible. OTHER: Negative. XR/XR clavicle LT IMPRESSION: 1. Stable alignment and ongoing bone healing of prior left clavicle fracture. Electronically authenticated by: HOLLIS MERINO Date: 04/02/2024 06:59 Dictated By: Hollis Merino M.D. Signed By: 04/02/24 0702 DD/ 0659 TD/TT: Banquet Attendant: Urine Culture - [facility] Reviewed date:01/30/2025 10:49:58 AM Interpretation: Performing Lab: Notes/Report: [facility] , Urine Culture - FR See Below For Report Antibiotic Interpretation TAMI Status Isolated Urine Culture - FR Organism: 1.1 Central Count Urine Culture - [facility] O:ESCCOL Testing performed at [facility] Urine Culture - [facility] [address] [place] [address] Antibiotic Interpretation TAMI Status Isolated Urine Culture - FR Organism: 1.1 Central Count Urine Culture - [facility] O:ESCCOL Testing performed at [facility] Urine Culture - [facility] See Below For Report Antibiotic Interpretation TAMI Status Isolated Urine Culture - [facility] Organism: 1.1 Central Count Urine Culture - [facility] O:ESCCOL Testing performed at [facility] Urine Culture - FR See Below For Report Antibiotic Interpretation TAMI Status Isolated Urine Culture - FR Organism: 1.1 Central Count Urine Culture - FR O:ESCCOL Testing performed at [facility] Urine Culture - [facility] >100,000 Antibiotic Interpretation TAMI Status Isolated Urine Culture - FR Organism: 1.1 Central Count Urine Culture - FR O:ESCCOL Testing performed at [facility] Urine Culture - FR See Below For Report Antibiotic Interpretation TAMI Status Isolated Urine Culture - FR Organism: 1.1 Central Count Urine Culture - FR O:ESCCOL Testing performed at [facility] Urine Culture - [facility] Amikacin S F Antibiotic Interpretation TAMI Status Isolated Urine Culture - FR Organism: 1.1 Central Count Urine Culture - FR O:ESCCOL Testing performed at [facility] Urine Culture - [facility] Amoxicillin/Clavula suyapa e S F Antibiotic Interpretation TAMI Status Isolated Urine Culture - [facility] Organism: 1.1 Central Count Urine Culture - [facility] O:ESCCOL Testing performed at [facility] Urine Culture - [facility] Ampicillin S F Antibiotic Interpretation TAMI Status Isolated Urine Culture - [facility] Organism: 1.1 Central Count Urine Culture - [facility] O:ESCCOL Testing performed at [facility] Urine Culture - [facility] Aztreonam S F Antibiotic Interpretation TAMI Status Isolated Urine Culture - [facility] Organism: 1.1 Central Count Urine Culture - [facility] O:ESCCOL Testing performed at [facility] Urine Culture - [facility] Ceftazidime S F Antibiotic Interpretation TAMI Status Isolated Urine Culture - [facility] Organism: 1.1 Central Count Urine Culture - [facility] O:ESCCOL Testing performed at [facility] Urine Culture - [facility] Ceftazidime/Avibact am S F Antibiotic Interpretation TAMI Status Isolated Urine Culture - [facility] Organism: 1.1 Central Count Urine Culture - [facility] O:ESCCOL Testing performed at [facility] Urine Culture - [facility] Ceftolozane/Tazobac bryant S F Antibiotic Interpretation TAMI Status Isolated Urine Culture - [facility] Organism: 1.1 Central Count Urine Culture - [facility] O:ESCCOL Testing performed at [facility] Urine Culture - [facility] Ciprofloxacin S F Antibiotic Interpretation TAMI Status Isolated Urine Culture - [facility] Organism: 1.1 Central Count Urine Culture - [facility] O:ESCCOL Testing performed at [facility] Urine Culture - [facility] Ertapenem S F Antibiotic Interpretation TAMI Status Isolated Urine Culture - [facility] Organism: 1.1 Central Count Urine Culture - [facility] O:ESCCOL Testing performed at [facility] Urine Culture - [facility] Gentamicin S F Antibiotic Interpretation TAMI Status Isolated Urine Culture - [facility] Organism: 1.1 Central Count Urine Culture - [facility] O:ESCCOL Testing performed at [facility] Urine Culture - [facility] Levofloxacin S F Antibiotic Interpretation TAMI Status Isolated Urine Culture - [facility] Organism: 1.1 Central Count Urine Culture - [facility] O:ESCCOL Testing performed at [facility] Urine Culture - [facility] Meropenem S F Antibiotic Interpretation TAMI Status Isolated Urine Culture - [facility] Organism: 1.1 Central Count Urine Culture - [facility] O:ESCCOL Testing performed at [facility] Urine Culture - [facility] Meropenem/Vaborbact am S F Antibiotic Interpretation TAMI Status Isolated Urine Culture - [facility] Organism: 1.1 Central Count Urine Culture - [facility] O:ESCCOL Testing performed at [facility] Urine Culture - [facility] Nitrofurantoin S F Antibiotic Interpretation TAMI Status Isolated Urine Culture - [facility] Organism: 1.1 Central Count Urine Culture - [facility] O:ESCCOL Testing performed at [facility] Urine Culture - [facility] Tetracycline S F Antibiotic Interpretation TAMI Status Isolated Urine Culture - [facility] Organism: 1.1 Central Count Urine Culture - [facility] O:ESCCOL Testing performed at [facility] Urine Culture - [facility] Tigecycline S F Antibiotic Interpretation TAMI Status Isolated Urine Culture - [facility] Organism: 1.1 Central Count Urine Culture - [facility] O:ESCCOL Testing performed at [facility] Urine Culture - [facility] Tobramycin S F Antibiotic Interpretation TAMI Status Isolated Urine Culture - [facility] Organism: 1.1 Central Count Urine Culture - [facility] O:ESCCOL Testing performed at [facility] Urine Culture - [facility] Ampicillin/Sulbacta m S F Antibiotic Interpretation TAMI Status Isolated Urine Culture - [facility] Organism: 1.1 Central Count Urine Culture - [facility] O:ESCCOL Testing performed at [facility] Urine Culture - [facility] Cefazolin S F Antibiotic Interpretation TAMI Status Isolated Urine Culture - [facility] Organism: 1.1 Central Count Urine Culture - [facility] O:ESCCOL Testing performed at [facility] Urine Culture - [facility] Cefepime S F Antibiotic Interpretation TAMI Status Isolated Urine Culture - [facility] Organism: 1.1 Central Count Urine Culture - [facility] O:ESCCOL Testing performed at [facility] Urine Culture - [facility] Ceftriaxone S F Antibiotic Interpretation TAMI Status Isolated Urine Culture - [facility] Organism: 1.1 Central Count Urine Culture - [facility] O:ESCCOL Testing performed at [facility] Urine Culture - [facility] Cefuroxime S F Antibiotic Interpretation TAMI Status Isolated Urine Culture - [facility] Organism: 1.1 Central Count Urine Culture - [facility] O:ESCCOL Testing performed at [facility] Urine Culture - [facility] Piperacillin/Tazoba cta m S F Antibiotic Interpretation TAMI Status Isolated Urine Culture - [facility] Organism: 1.1 Central Count Urine Culture - [facility] O:ESCCOL Testing performed at [facility] Urine Culture - [facility] Trimethoprim/Sulfa S F Antibiotic Interpretation TAMI Status Isolated Urine Culture - [facility] Organism: 1.1 Central Count Urine Culture - [facility] O:ESCCOL Testing performed at [facility] Performing Lab: see note ML - The [facility] LB SEE REPORT - Blood And Plasma Laboratory Assistant Id information not found for OBX-specific commercial producer legend UA (Urinalysis, Dipstix only - w/o micro) Reviewed date:10/28/2024 05:49:12 PM Interpretation: Performing Lab: Notes/Report: COLOR yellow Yellow - Halle - CLARITY cloudy Clear - Clear GLUCOSE - 0 - 133 MG/DL ALBUMIN - NEG - NEG MG/DL BILIRUBIN - NEG - NEG MG/DL SPECIFIC GRAVITY 1.015 1.001 - 1.035 KETONES - NEG - NEG MG/DL BLOOD, UR trace PH, UR 5 5 - 9 UROBILNOGEN - 0.2 - 1 MG/DL NITRITE + NEG - NEG ESTERASE (RIKY) + NEG - NEG MG/DL UA (Urinalysis, Dipstix only - w/o micro) Reviewed date:09/10/2024 11:27:30 AM Interpretation: Performing Lab: Notes/Report: COLOR yellow Yellow - Halle - CLARITY cloudy Clear - Clear GLUCOSE - 0 - 133 MG/DL ALBUMIN - NEG - NEG MG/DL BILIRUBIN - NEG - NEG MG/DL SPECIFIC GRAVITY 1.000 1.001 - 1.035 KETONES - NEG - NEG MG/DL BLOOD, UR trace PH, UR 7 5 - 9 UROBILNOGEN - 0.2 - 1 MG/DL NITRITE + NEG - NEG ESTERASE (RIKY) + NEG - NEG MG/DL XR CLAVICLE LT Reviewed date:02/21/2024 08:27:15 AM Interpretation: Performing Lab: Notes/Report: Source Facility: [facility] [place] [address] [place] [address] XRay Report Signed Patient: SYDNEE SPENCER MR#: [id number] : 1955 Acct:[id number] Age/Sex: 68 / F ADM Date: 02/19/24 Loc: EC Attending Dr: Hollis Valderrama M.D. Ordering Physician: Hollis Valderrama M.D. Date of Service: 02/19/24 Procedure(s): XR clavicle LT Accession Number(s): [id number] cc: MICHELLE ETIENNE ; Hollis Valderrama M.D. The [address] [address] Patient Name: SYDNEE SPENCER MRN: [id number] date: 1955 Sex: F Assigned Patient Location: Current Patient Location: Accession/Order Number: [id number] Exam Date: 02/19/2024 11:05 Report Date: 02/21/2024 05:29 At the request of: HOLLIS VALDERRAMA Procedure: XR clavicle LT PROCEDURE: XR clavicle LT HISTORY: LEFT CLAVICLE PAIN COMPARISON: XR clavicle left 01/22/2024 FINDINGS: BONES:Remote fracture of mid left clavicle with slight apex angulation. Interval removal of the previously seen plate and screws. Mild degenerative changes of the acromioclavicular joint. SOFT TISSUES:No visible soft tissue swelling. EFFUSION:None visible. OTHER: Negative. XR/XR clavicle LT IMPRESSION: 1. 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 2. Interval removal of fixation plate. Electronically authenticated by: HOLLIS MERINO Date: 02/21/2024 05:29 Dictated By: Hollis Merino M.D. Signed By: 02/21/2432 DD/ 8 TD/TT: Banquet Attendant: KALIN NANCE W or MICROSCOPIC Reviewed date:01/28/2025 12:43:03 PM Interpretation: Performing Lab: Notes/Report: [facility] , Color Urine LT. GREEN YELLOW Clarity Urine SL CLOUDY CLEAR Specific Beverly Urine <=1.005 1.005-1.025 pH Urine 6.0 5.0-9.0 Protein Urine NEGATIVE NEG/TRACE mg/dL Glucose Urine UA NEGATIVE NEGATIVE mg/dL Bilirubin Urine NEGATIVE NEGATIVE Ketones Urine NEGATIVE NEGATIVE mg/dL Blood Urine LARGE NEGATIVE Nitrite Urine POSITIVE NEGATIVE Urobilinogen Urine 0.2 0.2-1.0 EU/dL Leukocyte Esterase Urine LARGE NEGATIVE WBC Urine 75-100 NONE SEEN #/HPF RBC Urine 20-50 0-2 #/HPF Bacteria Urine MODERATE NONE SEEN #/HPF Mucus Urine NONE SEEN NONE SEEN Squamous Epithelial Cell Urine RARE NONE/RARE #/LPF Crystals Seen? None Seen None Seen #/HPF Cast Seen? NONE SEEN NONE SEEN #/LPF Urine Culture Indicated ALREADY ORDERED Performing Lab: see note ML - [facility] LB TSH Reviewed date:03/01/2024 09:47:03 AM Interpretation: Performing Lab: Notes/Report: [facility] , Thyroid Stimulating Hormone 2.830 0.358-3.740 uIU/mL Performing Lab: see note ML - [facility] LB PROF 14(COMP METB) Reviewed date:03/01/2024 09:47:03 AM Interpretation: Performing Lab: Notes/Report: [facility] , Sodium 141 136-145 mmol/L Potassium 4.1 3.5-5.1 mmol/L Chloride 103 98-107 mmol/L Carbon Dioxide 28.4 21.0-32.0 mmol/L Anion Gap 13.7 Glucose 73 74-106 mg/dL Blood Urea Nitrogen 14.0 7.0-18.0 mg/dL Creatinine 0.97 0.55-1.02 mg/dL Estimated GFR ( Lavinia >60 >=60 mL/min/1.73m 2 Estimated GFR (Non- Ivania 57 >=60 mL/min/1.73m 2 BUN Creatinine Ratio 14.4 Calcium 9.2 8.5-10.1 mg/dL Bilirubin Total 0.7 0.2-1.0 mg/dL Aspartate Amino Transferase 53 15-37 U/L Alanine Aminotransferase 22 14-59 U/L Alkaline Phosphatase 68 46-116 U/L Total Protein 7.1 6.4-8.2 g/dL Albumin Level 3.9 3.4-5.0 g/dL Globulin 3.2 Albumin Globulin Ratio 1.2 Performing Lab: see note ML - The [facility] LB LIPID PROFILE Reviewed date:03/01/2024 09:47:03 AM Interpretation: Performing Lab: Notes/Report: [facility] , Triglycerides 79 <=150 mg/dL Cholesterol 224 <=200 mg/dL HDL Cholesterol 94 40-60 mg/dL <40 mg/dl - HIGH CARDIOVASCULAR RISK > or =60 mg/dl - LOW CARDIOVASCULAR RISK LDL Cholesterol Calculated 115.0 130-159 mg/dl BORDERLINE HIGH >190 mg/dl VERY HIGH 100-129 mg/dl NEAR OR ABOVE OPTIMAL <100 mg/dl OPTIMAL 160-189 mg/dl HIGH VLDL CHOLESTEROL 15.8 Chol HDL Ratio 2.4 4.4 - 7.1 AVERAGE RISK >11.0 HIGH RISK 7.1 - 11.0 MODERATE RISK 3.3 - 4.4 LOW RISK Performing Lab: see note ML - [facility] LB GLYCOHEMOGLOBIN A1C Reviewed date:03/01/2024 09:47:03 AM Interpretation: Performing Lab: Notes/Report: [facility] , Glycohemoglobin A1C 5.1 4.5-6.2 % > 7.0 ADA RECOMMENDED LIMIT 4.0 - 6.0 ADA THERAPEUTIC TARGET < 7.0 ACTION SUGGESTED Estimated Average Glucose 100 Performing Lab: see note ML - [facility] LB CBC AUTO DIFF Reviewed date:02/29/2024 01:50:29 PM Interpretation: Performing Lab: Notes/Report: [facility] , White Blood Count 4.2 4.0-11.0 10 3/uL Red Blood Count 4.20 4.20-5.40 10 6/uL Hemoglobin 13.5 12.0-16.0 g/dL Hematocrit 41.8 36.0-48.0 % Mean Corpuscular Volume 99.5 81.0-99.0 fL Mean Corpuscular Hemoglobin 32.1 26.7-34.0 pg Mean Corpuscular HGB Conc 32.3 29.9-35.2 g/dL Red Cell Distribution Width 12.1 11.0-15.0 % Platelet Count 296 150-450 10 3/uL Mean Platelet Volume 9.7 9.5-13.5 fL Neutrophils Percent Auto 37.7 43.0-75.0 % Lymphocytes Percent Auto 49.8 20.5-60.0 % Monocytes Percent Auto 8.7 1.7-12.0 % Eosinophils Percent Auto 3.1 0.9-7.0 % Basophils Percent Auto 0.7 0.2-2.0 % Immature Granulocytes Pct Auto 0.0 0.0-0.5 % Neutrophils Absolute Auto 1.6 1.4-6.5 10 3/uL Lymphocytes Absolute Auto 2.1 1.2-3.8 10 3/uL Monocytes Absolute Auto 0.4 0.3-0.8 10 3/uL Eosinophils Absolute Auto 0.1 0.0-0.7 10 3/uL Basophils Absolute Auto 0.0 0.0-0.1 10 3/uL Immature Granulocytes Abs Auto 0.00 0.00-0.03 10 3/uL Performing Lab: see note ML - [facility] Reason For Referral No Information Medications Medication SIG (Take, Route, Fr equency, Duration) Notes Start Date End Date Status Cefdinir 300 MG one capsule Orally B ID; Duration: 10 days 09/10/2024 Active Social History Tobacco Use: Social History Observation Description Date Details (start date - stop date) Never Smoker NA - NA Tobacco Control (Standard) Question Answer Notes Tobacco use: Nonsmoker AUDIT-C (Standard) Question Answer Notes Did you have a drink containing alcohol in the p ast year? No Points 0 Interpretation Negative Problems Problem Type SNOMED Code ICD Code Onset Dates Problem Status W/U Status Risk Notes Problem Raynaud's disease (192120772) Raynauds phenomenon (I73.00) Active confirmed Problem Closed fracture of clavicle (76322703) Clavicle fracture (S42.009A) Active confirmed Vital Signs Blood pressure diastolic 80 mm Hg 01/27/2025 Height 63.5 in 01/27/2025 Blood pressure systolic 112 mm Hg 01/27/2025 Weight 119.8 lbs 01/27/2025 BMI 20.89 kg/m2 01/27/2025 Encounters Encounter Location Date Provider Diagnosis [address] [place] [address] 08/23/2024 Michelle Lowell Nevus D22.9 and Raynauds phenomenon I73.00 [address] [place] [address] 09/10/2024 Michelle Etienne UTI (urinary tract infection) N39.0 [address] [place] [address] 10/28/2024 Jaxson Hoy UTI (urinary tract infection) N39.0 [facility] [address] [place] [address] 01/27/2025 Michelle Etienne Dysuria R30.0 [facility] [address] [place] [address] 01/30/2025 Michelle Etienne UTI (urinary tract infection) N39.0 Assessments Encounter Date Diagnosis (ICD Code) Assessment Notes Treatment Notes Treatment Clinical Notes Section Notes 08/23/2024 Nevus (ICD-10 - D22.9) referral sheet for derm given 08/23/2024 Raynauds phenomenon (ICD-10 - I73.00) discussed avoid triggers- cold 09/10/2024 UTI (urinary tract infection) (ICD-10 - N39.0) if sx dont improve notify office will need to do culture 10/28/2024 UTI (urinary tract infection) (ICD-10 - N39.0) 01/27/2025 Dysuria (ICD-10 - R30.0) 01/30/2025 UTI (urinary tract infection) (ICD-10 - N39.0) Plan Of Treatment Pending Test Test Name Order Date UA (URINALYSIS, COMPLETE) 01/27/2025 UA (URINALYSIS, COMPLETE) 01/30/2025 Urine Culture 01/27/2025 CULTURE URINE 01/30/2025 Insurance Providers Payer Name Payer Address Payer Phone Subscriber Number Group Number Insured Name Patient Relationship to Insured Coverage Start Date Coverage End Date [employer]AN [address] [place] [phone] [id number] Sydnee Spencer Self - patient is the insured Medical (General) History Surgical History Surgery Date(Month/Year) left clavical 2023
--- OUTSIDE RECORDS SUMMARY | 2025-02-18 09:43 | XMS_ITS | Patient Health Record ---
Author Organization [facility] Address [address] [place] [address] Care Team Providers Care Lead Ruby On Rails Developer Name Role Phone Micah Traylor Primary Care Provider Hollis Levin Unavailable [phone] Allergies No Known Allergies Results Component Value Reference Range Notes SCC- CLAVICLE LEFT [id number] Reviewed date:05/21/2024 02:46:17 PM Interpretation: Performing Lab: Notes/Report: Reason For Referral No Information Social History Tobacco Use: Social History Observation Description Date Details (start date - stop date) Former Smoker NA - NA Smoking History Question Answer Notes Smoking Status Former Smoker How long since you quit > 10 years AUDIT-C (Standard) Question Answer Notes Did you have a drink contain ing alcohol in the past year? Yes How often did you have six o r more drinks on one occasion in the past year? Less than monthly (1 point) How many drinks did you have on a typical day when you were drinking in the past year? 1 or 2 drinks (0 point) How often did you have a dri nk containing alcohol in the past year? 2 to 3 times a week (3 points) Problems Problem Type SNOMED Code ICD Code Onset Dates Problem Status W/U Status Risk Notes Problem 86705066 Left hip pain (M25.552) Active confirmed Problem 11060432 Fracture of unspecified part of left clavicle, subsequent encounter for fracture with routine healing (S42.002D) Active confirmed Problem 27050772 Closed displaced fracture of shaft of left clavicle, initial encounter (S42.022A) Active confirmed Problem 32894480 Closed displaced fracture of left clavicle, unspecified part of clavicle, initial encounter (S42.002A) Active confirmed Problem 432184305 Preop testing (Z01.818) Active confirmed Problem Orthopedic hardware in situ (finding) (142423482) Retained orthopedic hardware (Z96.9) Active confirmed Vital Signs Height 5'4 in 04/01/2024 Weight 115 lbs 04/01/2024 BMI 19.74 04/01/2024 Encounters Encounter Location Date Provider Diagnosis [facility] [address] [facility] [place] [address] 02/19/2024 Hollis Campo Fracture of unspecified part of left clavicle, subsequent encounter for fracture with routine healing S42.002D [facility] [address] [facility] [place] [address] 04/01/2024 Hollis Campo Fracture of unspecified part of left clavicle, subsequent encounter for fracture with routine healing S42.002D Assessments Encounter Date Diagnosis (ICD Code) Assessment Notes Treatment Notes Treatment Clinical Notes Section Notes 02/19/2024 Fracture of unspecified part of left clavicle, subsequent encounter for fracture with routine healing (ICD-10 - S42.002D) 04/01/2024 Fracture of unspecified part of left clavicle, subsequent encounter for fracture with routine healing (ICD-10 - S42.002D) 02/19/2024 Other Patient is doing well. She will avoid any high impact activities or weightbearing through the left arm. She will get back to bike riding. She rides an upright bike which at this point would be reasonable. She will follow-up in 6 weeks to repeat x-rays and reassess her progress. Import medication 04/01/2024 Other Patient is doing well. She is not having pain. She reports she has biked over 700 miles since last seen. She will continue to avoid any heavy lifting for the next 6 weeks. She will follow-up on an as-needed basis. Import medication Plan Of Treatment Pending Test Test Name Order Date EKG 11/14/2023 CBC with diff, BMP, EKG 01/22/2024 SCC- CLAVICLE LEFT 66065 02/19/2024 SCC- CLAVICLE LEFT 15603 11/14/2023 SCC- CLAVICLE LEFT 76255 12/25/2023 SCC- CLAVICLE LEFT 31411 01/01/2024 SCC- CLAVICLE LEFT [id number] 01/22/2024 Insurance Providers Payer Name Payer Address Payer Phone Subscriber Number Group Number Insured Name Patient Relationship to Insured Coverage Start Date Coverage End Date Jessica [address] [place] [address] [id number] EM SPENCER Spouse - patient is the spouse of the insured Medical (General) History Medical History History ICD Code CPAP Machine:: No Healthcare worker: No Latex Allergy: No Have you been in close conta ct with someone who has had MRSA within the last year?: No Have you ever had or presently have MRSA ?: No Have you been seen by a dentist in the l ast year?: Yes Do you have any dental probl ems i.e. Broken, loose, or chipped teeth, absess, gum disease?: No
--- OUTSIDE RECORDS SUMMARY | 2025-02-18 09:43 | XMS_ITS | Encounter Summary ---
Author Organization [facility] Address [address] [facility] [place] [address] Care Team Providers Care Custodial Operations Manager Name Role Phone Micah Traylor MD Primary Care Provider [phone] Encounter Details Date Type Department Care Team (Late st Contact Info) Description 09/23/2024 Orders Only [facility] [place] [facility] Family Medicine 112 [facility] [address] [place] [address] Santos Gayle MD 112 [facility] 100 [place] [address] Social History Tobacco Use Types Packs/Day Years [...] declined 09/27/2023 How often do you attend judaism or yazdanism serv ices? Patient declined 09/27/2023 Do you belong to any clubs o r organizations such as judaism groups, unions, fraternal or athletic groups, or [...] place to sleep or slept in a halfway (including now)? Patient declined 09/27/2023 Comments No [...] on filedocumented in this encounter Care Teams Custodial Operations Manager Relationship Specialty Start Date End Date Micah Traylor MD PCP - General Family Medicine 10/03/23 documented as of this encounter
--- OUTSIDE RECORDS SUMMARY | 2025-02-18 09:43 | XMS_ITS | Encounter Summary ---
Author Organization [facility] Address [address] [facility] [place] [address] Care Team Providers Care Service Center Manager Name Role Phone Micah Traylor MD Primary Care Provider [phone] Encounter Details Date Type Department Care Team (Late st Contact Info) Description 09/26/2024 Abstract [facility] [place] [address] Family Medicine 112 [facility] [address] [place] [address] Santos Gayle MD 112 [facility] 100 [place] [address] Social History Tobacco Use Types Packs/Day Years [...] declined 09/27/2023 How often do you attend buddhist or christian serv ices? Patient declined 09/27/2023 Do you belong to any clubs o r organizations such as buddhist groups, unions, fraternal or athletic groups, or [...] place to sleep or slept in a prison (including now)? Patient declined 09/27/2023 Comments No Sex and Gender Information Value Date Recorded Sex Assigned at Not on file Legal Sex Female 6:47 PM EDT Gender Identity Not on file Sexual Orientation Not on file documented as of this encounter Plan of Treatment Not on file documented as of this encounter Visit Diagnoses Not on filedocumented in this encounter Care Teams Service Center Manager Relationship Specialty Start Date End Date Micah Traylor MD PCP - General Family Medicine 10/03/23 documented as of this encounter
--- OUTSIDE RECORDS SUMMARY | 2025-02-18 09:43 | XMS_ITS | Encounter Summary ---
Author Organization [facility] Address [address] [facility] [place] [address] Care Team Providers Care Counter Intelligence Technician Name Role Phone Santos Gayle MD Unavailable [phone] Santos Gayle MD Primary Care Provider [phone] Micah Traylor MD Primary Care Provider + Santos Gayle MD Unavailable [phone] Encounter Details Date Type Department Care Team (Late st Contact Info) Description 01/30/2023 Abstract [facility] [place] 521 Family Medicine [address] [facility] [place] [address] Santos Gayle MD 112 [facility] 100 [place] [address] (Fax) Social History Tobacco Use Types Packs/Day [...] on filedocumented in this encounter Care Teams Counter Intelligence Technician Relationship Specialty Start Date End Date Santos Gayle MD 112 [facility] 100 [place] [address] (Fax) PCP - [place] [employer] 08/13/2004/13 Santos Gayle MD [address] [place] [address] PCP - General Family Medicine 11/21/22 10/02/23 Micah Traylor MD [address] [place] [address] PCP - General Family Medicine 10/03/23 Santos Gayle MD [address] [facility] [address] [place] [address] PCP - [place] [employer] 09/13/23 documented as of this encounter
--- OUTSIDE RECORDS SUMMARY | 2025-02-18 09:43 | XMS_ITS | Encounter Summary ---
Author Organization [facility] Address [address] [facility] [address] Care Team Providers Care Preschool Director Name Role Phone Santos Gayle MD Primary Care Provider + [phone] Micah Traylor MD Primary Care Provider + Santos Gayle MD Unavailable [phone] Encounter Details Date Type Department Care Team (Late st Contact Info) Description 09/28/2023 Abstract [facility] [place] 521 Family Medicine [address] [facility] [facility] [place] [address] Santos Gayle MD 112 [facility] 100 [place] [address] (Fax) Social History Tobacco Use Types Packs/Day [...] declined 09/27/2023 How often do you attend pentecostalism or sabianist serv ices? Patient declined 09/27/2023 Do you belong to any clubs o r organizations such as pentecostalism groups, unions, fraternal or athletic groups, or [...] place to sleep or slept in a long-term (including now)? Patient declined 09/27/2023 Comments No Sex and Gender Information Value Date Recorded Sex Assigned at Not on file Legal Sex Female 6:47 PM EDT Gender Identity Not on file Sexual Orientation Not on file documented as of this encounter Plan of Treatment Not on file documented as of this encounter Visit Diagnoses Not on filedocumented in this encounter Care Teams Preschool Director Relationship Specialty Start Date End Date Santos Gayle MD PCP - General Family Medicine 11/21/22 10/02/23 Micah Traylor MD PCP - General Family Medicine 10/03/23 Santos Gayle MD [address] [place] [address] PCP - [place]on[place] [employer] 09/13/23 documented as of this encounter
--- OUTSIDE RECORDS SUMMARY | 2025-02-18 09:43 | XMS_ITS | Clinical Summary ---
Author Organization [facility] Address [address] [facility] [place] [address] Care Team Providers Care Meat Cutter Name Role Phone Micah Traylor MD Primary Care Provider [phone] Social History Tobacco Use Types Packs/Day Years [...] age to complete this topic Insurance [place] [facility] Care Teams Meat Cutter Relationship Specialty Start Date End Date Micah Traylor MD [address] [place] [address] PCP - General Family Medicine 11/29/23
--- OUTSIDE RECORDS SUMMARY | 2025-02-18 09:43 | XMS_ITS | Encounter Summary ---
Author Organization [facility] Address [address] [place] [address] Care Team Providers Care Medical Equipment Repairer Name Role Phone Santos Gayle MD Primary Care Provider + [phone] Micah Traylor MD Primary Care Provider + Santos Gayle MD Unavailable [phone] Encounter Details Date Type Department Care Team (Late st Contact Info) Description 09/21/2023 Orders Only [facility] [place] 521 Family Medicine [address] [place] [address] Santos Gayle MD [address] [address] Social History Tobacco Use Types Packs/Day Years [...] on filedocumented in this encounter Care Teams Medical Equipment Repairer Relationship Specialty Start Date End Date Santos Gayle MD PCP - General Family Medicine 11/21/22 10/02/23 Micah Traylor MD PCP - General Family Medicine 10/03/23 Santos Gayle MD [address] [place] [address] PCP - Jessica Kinney 09/13/23 documented as of this encounter
--- OUTSIDE RECORDS SUMMARY | 2025-02-18 09:43 | XMS_ITS | Clinical Summary ---
Author Organization [facility] Address [address] [place] [address] Care Team Providers Care Brick Paving Checker Name Role Phone Micah Traylor MD Primary Care Provider [phone] Allergies No known active allergies Medications Hormone [...] declined 09/27/2023 How often do you attend yazdanism or cheondoism serv ices? Patient declined 09/27/2023 Do you belong to any clubs o r organizations such as yazdanism groups, unions, fraternal or athletic groups, or [...] Narrative 01/22/2021 12:00 AM EDT PERFORMED AT [facility] LOCATION:[place] [address] Patient: TJ Spears. Exam Date: 01/22/2021 : 1955 Gender:F Ordering : DR MORALES TORO . Admission #: [id number] Family : Order #: [id number] CLICK HERE TO VIEW EXAM RADIOLOGY REPORT [...] Treatments None Family Cancers None LOCATION: [facility] BREAST COMPOSITION: Heterogeneously dense which may [...] Note CONVERSION, GENERIC - 11/18/2022 PERFORMED AT [facility] LOCATION:[place] [address] Patient: TJ Jackson Exam Date: 01/22/2021 : 1955 Gender:F Ordering : DR MORALES TORO . Admission #: [id number] Family : Order #: [id number] CLICK HERE TO VIEW EXAM RADIOLOGY REPORT [...] Treatments None Family Cancers None LOCATION: [facility] BREAST COMPOSITION: Heterogeneously dense which may [...] Most Recently Relevant to Health Maintenance Insurance [facility] Care Teams Brick Paving Checker Relationship Specialty Start Date End Date Micah Traylor MD PCP - General Family Medicine 10/03/23
--- OUTSIDE RECORDS SUMMARY | 2025-02-18 09:43 | XMS_ITS | Encounter Summary ---
Author Organization [facility] Address [address] [facility] [place] [address] Care Team Providers Care Dental Hygiene Administrative Assistant Name Role Phone Micah Traylor MD Primary Care Provider [phone] Santos Gayle MD Unavailable [phone] Encounter Details Date Type Department Care Team (Late st Contact Info) Description 05/14/2024 Abstract [facility] [place] [address] Family Medicine 112 [facility] 100 [place] [address] Santos Gayle MD 112 [facility] 100 [place] [address] Social History Tobacco Use Types Packs/Day Years [...] declined 09/27/2023 How often do you attend roman catholic or caodaism serv ices? Patient declined 09/27/2023 Do you belong to any clubs o r organizations such as roman catholic groups, unions, fraternal or athletic groups, or [...] place to sleep or slept in a fpc (including now)? Patient declined 09/27/2023 Comments No Sex and Gender Information Value Date Recorded Sex Assigned at Not on file Legal Sex Female 6:47 PM EDT Gender Identity Not on file Sexual Orientation Not on file documented as of this encounter Plan of Treatment Not on file documented as of this encounter Visit Diagnoses Not on filedocumented in this encounter Care Teams Dental Hygiene Administrative Assistant Relationship Specialty Start Date End Date Micah Traylor MD PCP - General Family Medicine 10/03/23 Santos Gayle MD [address] [address] PCP - Jessica Kinney 09/13/23 documented as of this encounter
--- OUTSIDE RECORDS SUMMARY | 2025-02-18 09:45 | XMS_ITS | CCD ---
Author Organization [facility] Care Team Providers Care Maintenance Analyst Name Role Phone Halle Dahl Unavailable DR SANTOS TORO Primary Care Unavailable DR HOLLIS CANALES Consulting Unavailable TAY AZUL Attending Unavailable TAY AZUL Admitting Unavailable TAY AZUL Consulting Unavailable BRENDA CH Consulting Unavailable DR SANTOS TORO Primary Care Unavailable BRENDA CH Attending Unavailable BRENDA CH Admitting Unavailable Michelle Fisher Unavailable NON STAFF Primary Care Provider UnavailBARBARA Chris Attending Provider HOLLIS VALDERRAMA Referring Unavailable SABRINA TRAYLOR Primary Care Unavailable HOLLIS VALDERRAMA Referring Unavailable SABRINA TRAYLOR Primary Care Unavailable HOLLIS VALDERRAMA Referring Unavailable SABRINA TRAYLOR Primary Care Unavailable Sabrina Traylor MD Primary Care Provider Santos Toro MD Unavailable Sabrina Traylor MD Primary Care Provider [phone] Sabrina Traylor MD Primary Care Provider [phone] SANTOS TORO Attending Unavailable Lowell WILSONCMichelle Attending Provider [phone] Michelle Etienne Attending Unavailable Michelle Etienne Admitting Unavailable Medications Current Medications Medication Drug Class(es) Dates Sig (Normalized) Sig (Original) Hormone Cream Base (HRT Cream Base Women) cream (6 sources) Start: 09-26-2024 Hormone Cream Base (HRT Cream Base Women) cream Indications: Symptomatic menopausal or female climacteric states Use 0.5mL nightly 09/26/2024 Active Start: 09-28-2023 End: 09-26-2024 Hormone Cream Base (HRT Crea m Base Women) cream Indications: Symptomatic menopausal or female climacteric states Use 0.5mL nightly 09/28/2023 09/26/2024 Discontinued (Reorder) Start: 09-28-2023 Hormone Cream Base (HRT Cream Base Women) cream Indications: Symptomatic menopausal or female climacteric states Use 0.5mL nightly 09/28/2023 Active ibuprofen 600 mg oral tablet (3 sources) Nonsteroidal Anti-inflammatory Drug Start: 11-14-2023 take 1 tablet by mouth every eight hours as needed for pain nitrofurantoin, macrocrystals 25 mg / nitrofurantoin, monohydrate [...] Active traMADol hydrochloride 50 mg oral tablet (3 sources) Opioid Agonist Start: 11-14-2023 take 1 tablet by mouth every six hours as needed for pain Completed/Discontinued Medications Medication Drug Class(es) Dates Sig (Normalized) Sig (Original) predniSONE 10 mg oral tablet (2 sources) Start: 04-05-2022 prednisone 10 MG as directed with food Orally 5 tablet x 2 days, 4 tablet x2 days, 3 tablet x2 days, 2 tablet x 2 days, 1 tablet x 2 days for 10 days Mar, Not-Taking Problems Active Problems Problem Classification Problem Date Documented Date Episodic/Chronic Fracture of upper limb (8 sources) Fracture of clavicle; Translations: [Fracture of unspecified part of left clavicle, initial encounter for closed fracture] Onset: 12-01-2023 11-14-2023 Episodic Genitourinary symptoms and ill-defined conditions (2 sources) Dysuria; Translations: [Hematuria, unspecified] Episodic Malaise and fatigue (4 sources) Fatigue; Translations: [Chronic fatigue, unspecified] Onset: 08-17-2023 08-17-2023 Chronic Menopausal disorders (6 sources) Menopausal symptom; Translations: [Menopausal and female climacteric states] Onset: 08-17-2023 08-17-2023 Chronic Menopausal disorders (6 sources) Postmenopausal state; Translations: [Hormone replacement therapy] Onset: 08-17-2023 08-17-2023 Episodic Other connective tissue disease (1 source) Unspecified rotator cuff tear or rupture of right shoulder, not specified as traumatic; Translations: [UNS ROT CUFF TEAR/RUPT RT SHOULDER] Onset: 06-19-2022 Episodic Other injuries and conditions due to external causes (2 sources) Abrasion and/or friction burn of multiple sites; Translations: [Unspecified multiple injuries, initial encounter] 11-14-2023 Episodic Other injuries and conditions due to external causes (1 source) Unspecified multiple injuries, initial encounter; Translations: [Abrasion or friction burn of other, multiple, and unspecified sites, without mention of infection] 11-14-2023 Episodic Other nervous system disorders (4 sources) Chronic pain; Translations: [Other chronic pain] Onset: 08-17-2023 08-17-2023 Chronic Other non-traumatic joint disorders (3 sources) Pain in left shoulder; Translations: [Left shoulder pain] 11-14-2023 Episodic Other non-traumatic joint disorders (3 sources) Pain in left hip; Translations: [Pain in left hip] Onset: 12-01-2023 Episodic Superficial injury; contusion (3 sources) Subungual hematoma of great toe of left foot; Translations: [Contusion of left great toe with damage to nail, initial encounter] 11-14-2023 Episodic Urinary tract infections (1 source) Urinary tract infection, site not specified Episodic Past or Other Problems Problem Classification Problem Date Documented Date Episodic/Chronic Other connective tissue disease (4 sources) Supraspinatus syndrome; Translations: [Unspecified rotator cuff tear or rupture of right shoulder, not specified as traumatic] Onset: 08-17-2023 08-17-2023 Episodic Other non-traumatic joint disorders (9 sources) Pain in right shoulder; Translations: [Pain in joint, shoulder region] Onset: 06-17-2022 Episodic Results Test Name Value Interpretation Reference Range Facility Urine Cultureon 01-27-2025 Bacteria identified Cx Nom (U) ORGANISM: Escherichia coli (O:ESCCOL) [place] Count >100,000 Aerobic TAMI Charge (NMIC56) --- [...] RESISTANT TO ALL B-LACTAM DRUGS. PERFORMED BY: [place] [address] PATHOLOGIST MARKETING OPERATIONS ASSOCIATE LORI RODGERS M.D. Normal [facility] Comment on above: Performed By: #### C UU #### [address] XR CLAVICLE LEFTon 4 XR CLAVICLE LEFT EXAM: XR CLAVICLE LEFT. [...] Otto Jr., MD 12/01/23 Final result Normal [facility] XR Clavicle - left Viewson 0 12-01-2023 FINDINGS/IMPRESSION: 1. Plate and screw fixation clavicle intact. 2. Fracture in anatomic alignment, remains visible, in the middle one-third. 3. Mild age-expected degenerative change at the shoulder, unchanged. [facility] EXAM: XR CLAVICLE LEFT. HISTORY: Closed displaced fracture of left clavicle, unspecified part of clavicle, initial encounter. COMPARISON: Intraoperative spot films 11/17/2023, preop films 11/14/2023. [facility] Jorge Otto Jr., MD - 12/01/2023 EXAM: XR CLAVICLE LEFT. HISTORY: Closed displaced fracture of left clavicle, unspecified part of clavicle, initial encounter. COMPARISON: Intraoperative spot films 11/17/2023, preop films 11/14/2023. IMPRESSION: FINDINGS/IMPRESSION: 1. Plate and screw fixation clavicle intact. 2. Fracture in anatomic alignment, remains visible, in the middle one-third. 3. Mild age-expected degenerative change at the shoulder, unchanged. [facility] Radiology Study observation (narrative) [facility] XR Clavicle - left ViewsOrde red By: Jorge Otto on 12-01-2023 [facility] Work Phone: XR HIP 2-3 VW W PELVIS LEFTo [...] Otto Jr., MD 12/01/23 Final result Normal [facility] Urinalysis - AUTOMATEDon Appearance (U) cloudy [employer] Other Bilirubin Ql (U) Negative [employer] Other Color (U) light yellow [employer] Other Glucose Ql (U) Negative [employer] Other Hemoglobin Ql (U) moderate [facility] Other Ketones Ql (U) Negative [employer] Other Leukocyte esterase Test strip Ql (U) large [employer] Other Nitrite Ql (U) Negative [employer] Other pH (U) 7.0 [pH] [employer] Other Protein Ql (U) Negative [employer] Other Specific gravity (U) [Rel density] 1.010 [employer] Other Urobilinogen (U) [Mass/Vol] 0.2 mg/dL [facility] Other Urinalysis - AUTOMATED [employer] Other Urine Cultureon 01-25-2023 Urine Culture >100,000 [facility] Other Urine Culture <16 Susceptible [employer] Other Urine Culture <8/4 Susceptible [employer] Other Urine Culture <8 Susceptible [employer] Other Urine Culture <4 Susceptible [employer] Other Urine Culture <2 Susceptible [employer] Other Urine Culture <1 Susceptible [employer] Other Urine Culture <0.25 Susceptible [employer] Other Urine Culture <0.5 Susceptible [employer] Other Urine Culture <32 Susceptible [employer] Other Urine Culture <0.5/9.5 Susceptible [employer] Other MRI SHOULDER RT WO CONon MRI [...] glenohumeral joint capsule; nonspecific. Electronically authenticated by: HOLLIS CANALES Date: 2022-06-17 12:02 Normal [facility] GLUCOSE BLOODon 04-28-2022 Glucose [Mass/Vol] 92 mg/dL Normal 74-106 [facility] Comment on above: Performed By: #### G ERIC, LIPID #### [facility] [address] [address] [address] Sundar Castillo LIPID PROFILEon 04-28-2022 CHOL-HDL RATIO NORM SEE BELOW Normal [facility] Comment on above: Result Comment: 3.3 - 4.4 LOW RISK 4.4 - 7.1 AVERAGE RISK 7.1 - 11.0 MODERATE RISK >11.0 HIGH RISK Performed By: #### G ERIC, LIPID #### [facility] [address] [address] [address] Sundar Castillo Cholesterol [Mass/Vol] 221 mg/dL Critically high <=200 [facility] Comment on above: Performed By: #### G ERIC, LIPID #### [facility] [address] [address] [address] Sundar Castillo Cholesterol in HDL [Mass/Vol] 91 mg/dL Critically high 40-60 [facility] Comment on above: Performed By: #### G ERIC, LIPID #### [facility] [address] [address] [address] Sundar Castillo Cholesterol in LDL [Mass/Vol] 106.0 mg/dL Normal [facility] Comment on above: Performed By: #### G ERIC, LIPID #### [facility] [address] [address] [address] Sundar Castillo Cholesterol.total /Cholesterol in HDL [Mass ratio] 2.4 {ratio} Normal [facility] Comment on above: Performed By: #### G ERIC, LIPID #### [facility] [address] [address] [address] Sundar Castillo HDL NORMAL > or = 60 mg/dl - LO W CARDIOVASCULAR RISK <40 mg/dl - HIGH CARDIOVASCULAR RISK Normal [facility] Comment on above: Performed By: #### G ERIC, LIPID #### [facility] [address] [address] [address] Sundar Castillo LDL CALC NORMAL SEE BELOW Normal [facility] Comment on above: Result Comment: <100 mg/dl OPTIMAL 100 - 129 mg/dl NEAR OR ABOVE OPTIMAL 130 - 159 mg/dl BORDERLINE HIGH 160 - 189 mg/dl HIGH >190 mg/dl VERY HIGH Performed By: #### G ERIC, LIPID #### [facility] [address] [place], [place] [address] Dr. Sundar Castillo Triglyceride [Mass/Vol] 120 mg/dL Normal <=150 [facility] Comment on above: Performed By: #### G ERIC, LIPID #### [facility] [address] [place], [place] [address] Dr. Sundar Castillo VLDL CALC 24.0 mg/dL Normal [facility] Comment on above: Performed By: #### G ERIC, LIPID #### [facility] [address] [place], [place] [address] Dr. Sundar Castillo Vital Signs Date Time Vital Sign Value Performing Clinician Facility 09-26-2024 10:57-0400 Body height 161.3 cm Santos Toro MD Work Phone: [facility] 09-26-2024 10:57-0400 Body mass index (BMI) [Ratio] 21.27 kg/m2 Santos Toro MD Work Phone: [facility] 09-26-2024 10:57-0400 Body weight 55.34 kg Santos Toro MD Work Phone: [facility] 11-14-2023 09:23-0400 Body height 161.29 cm [facility] 11-14-2023 09:23-0400 Body mass index (BMI) [Ratio] 19.5 kg/m2 [facility] [place] 11-14-2023 09:23-0400 Body temperature 97.4 [degF] [facility] 11-14-2023 09:23-0400 Body weight 50.91 kg [facility] 11-14-2023 09:23-0400 Diastolic blood pressure 81 mm[Hg] [facility] [place] 11-14-2023 09:23-0400 Heart rate 86 /min [facility] 11-14-2023 09:23-0400 Respiratory rate 18 /min [facility] 11-14-2023 09:23-0400 SaO2% (BldA) [Mass fraction] 98 % [facility] [place] 11-14-2023 09:23-0400 Systolic blood pressure 134 mm[Hg] [facility] [place] 01-25-2023 09:20-0400 Body height 162.56 cm Michelle Fisher Other [facility] Other 01-25-2023 09:20-0400 Body mass index (BMI) [Ratio] 20.97 kg/m2 Michelle Caraballomond Other [facility] Other 01-25-2023 09:20-0400 Body temperature 98.1 [degF] Michelle Fisher Other [facility] Other 01-25-2023 09:20-0400 Body weight 55.43 kg Michelle Fisher Other [facility] Other 01-25-2023 09:20-0400 Diastolic blood pressure 85 mm[Hg] Michelle Fisher Other [facility] Other 01-25-2023 09:20-0400 Respiratory rate 18 /min Michelle Fisher Other [facility] Other 01-25-2023 09:20-0400 SaO2% (BldA) [Mass fraction] 100 % Michelle Fisher Other [facility] Other 01-25-2023 09:20-0400 Systolic blood pressure 130 mm[Hg] Michelle Fisher Other [facility] Other 04-05-2022 10:20-0500 Body height 162.56 cm Halle Dahl Other [facility] Other 04-05-2022 10:20-0500 Body mass index (BMI) [Ratio] 20.6 kg/m2 Halle Dahl Other [facility] Other 04-05-2022 10:20-0500 Body temperature 97.9 [degF] Halle Dahl Other [facility] Other 04-05-2022 10:20-0500 Body weight 54.43 kg Halle Dahl Other [facility] Other 04-05-2022 10:20-0500 Diastolic blood pressure 92 mm[Hg] Halle Dahl Other [facility] Other 04-05-2022 10:20-0500 Respiratory rate 16 /min Halle Dahl Other [facility] Other 04-05-2022 10:20-0500 SaO2% (BldA) [Mass fraction] 99 % Halle Dahl Other [facility] Other 04-05-2022 10:20-0500 Systolic blood pressure 145 mm[Hg] Halle Dahl Other [facility] Other Encounters Encounter Date Encounter Type Care Provider Facility Start: 01-27-2025 End: 01-27-2025 ambulatory Michelle Etienne [facility] Work Phone: Start: 01-27-2025 End: 01-27-2025 Departed Referred Michelle Etienne [employer] Start: 09-26-2024 End: 09-26-2024 Bamboo flowsheet Santos Toro MD Work Phone: [facility] Start: 09-26-2024 End: 09-26-2024 Bamboo flowsheet Santos Toro MD Work Phone: [facility] Start: 09-26-2024 End: 09-26-2024 Office outpatient visit 25 minutes Santos Toro MD Work Phone: [facility] Comment on above: Symptomatic menopaus al or female climacteric states (Primary Dx); Hx of hysterectomy; Hormone replacement therapy (postmenopausal) Start: 09-26-2024 End: 09-26-2024 ambulatory SANTOS TORO Not Available Start: 05-13-2024 End: 05-13-2024 Telephone encounter Santos Toro MD Work Phone: [facility] Start: 12-01-2023 End: 12-03-2023 Subsequent hospital visit by physician [facility] Additional Xray At [facility] Comment on above: Closed displaced fra cture of left clavicle, unspecified part of clavicle, initial encounter Start: 12-01-2023 End: 12-03-2023 ambulatory HOLLIS Smith [facility] Start: 11-14-2023 End: 11-14-2023 ambulatory NON STAFF [facility] Work Phone: Start: 11-14-2023 End: 11-14-2023 Patient encounter procedure [facility] Work Phone: Start: 01-25-2023 End: 01-25-2023 ambulatory Michelle Fisher Other [facility] Other Start: 01-25-2023 Office outpatient vi sit 15 minutes Michelle Fisher [facility] Start: 06-17-2022 End: 06-18-[address] SANTOS TORO Facility:[facility] Start: 05-02-2022 Encounter for genera l adult medical examination without abnormal findings BRENDA CH [facility] Start: 04-28-2022 End: 04-29-2022 ambulatory BRENDA CH Facility:[facility] Start: 04-28-2022 End: 04-29-2022 Encounter for general adult medical examination without abnormal findings BRENDA CH Facility:[facility] Start: 04-05-2022 End: 04-05-2022 ambulatory Halle Dahl Other [facility] [employer] Other Start: 04-05-2022 Office outpatient ne w 20 minutes Halle Dahl [facility] Procedures Date Procedure Procedure Detail Performing Clinician Start: 12-01-2023 Radex clavicle complete Hollis Valderrama MD Work Phone: Start: 11-14-2023 Plain X-ray of left clavicle Start: 11-14-2023 Plain X-ray of left shoulder Start: 08-17-2023 H/O: hysterectomy Hx of hysterectomy Santos Toro MD Work Phone: Start: 01-25-2023 Piperacillin/tazobactam Michellefawad Fisher Other Start: 01-22-2021 Mammography Santos winchester MD Work Phone: Cosmetic surgery Halle no Other H/O: hysterectomy Hx of hysterectomy Jamey Toro MD Work Phone: Plan of Treatment Date Care Activity Detail Author Start: 01-27-2025 Bacteria identified in Urine by Culture Urine Culture [facility] [place] Start: 01-27-2025 Urine culture [facility] [place] Start: 01-13-2025 Influenza vaccination Influenz a Vaccine (Season Ended) [facility] Start: 09-26-2024 End: 09-26-2024 Patient encounter procedure 09/26/2024 11:00 AM EDT Office Visit [facility] [address] [place] [address] Santos Toro MD [address] [place] [address] (Fax) Arrived [facility] Comment on above: Arrived Start: 01-14-2024 Influenza vaccination Influenza Vacc ine (#1) [facility] Start: 12-14-2023 Influenza vaccination Flu vaccine (# 1) [facility] Start: 10-12-2023 DTaP/Tdap/Td vaccine (2 - Td or Tdap) DTaP/Tdap/Td vaccine (2 - Td or Tdap) [facility] Start: 01-22-2023 Screening for malign ant neoplasm of breast Breast cancer screen [facility] Start: 01-13-2023 COVID-19 Vaccine ( season) COVID-19 Vaccine ( season) [facility] Start: 2022 Pneumococcal 65+ yea rs Vaccine (1 of 1 - PCV) Pneumococcal 65+ years Vaccine (1 of 1 - PCV) [facility] Start: 2022 Pneumococcal Vaccine : 65+ Years (1 of 1 - PCV) Pneumococcal Vaccine: 65+ Years (1 of 1 - PCV) [facility] Start: 01-22-2022 Screening for malign ant neoplasm of breast Mammogram [facility] Start: 2017 Respiratory Syncytia l Virus (RSV) or age 60 yrs+ (1 - 1-dose 60+ series) Respiratory Syncytial Virus (RSV) or age 60 yrs+ (1 - 1-dose 60+ series) [facility] Start: 2007 Pneumococcal Vaccine : 65+ Years (1 of 1 - PCV) Pneumococcal Vaccine: 65+ Years (1 of 1 - PCV) [facility] Start: 2002 Screening for malign ant neoplasm of colon [facility] Start: 1997 Lipid panel Lipids [facility] Start: 1975 Hepatitis C screening Hepatitis C sc reen [facility] Start: 1969 Depression Screen Depression Screen [facility] Start: 1957 Screening for malign ant neoplasm of colon [facility] Immunizations Immunization Date Immunization Notes Care Provider Fa [facility] 03-31-2023 Influenza, Seasonal, Quadrivalent, Adjuvanted Santos Toro MD Work Phone: [facility] 03-31-2023 influenza virus vacc ine, unspecified formulation Santos Toro MD Work Phone: [facility] 02-24-2022 influenza, injectabl e, quadrivalent, preservative free Santos Toro MD Work Phone: [facility] 06-11-2019 zoster vaccine recombinant Santos Toro MD Work Phone: [facility] 02-08-2019 influenza, injectabl e, quadrivalent, preservative free Santos Toro MD Work Phone: [facility] 02-08-2019 zoster vaccine recombinant Santos Toro MD Work Phone: [facility] 03-22-2018 influenza, injectabl e, quadrivalent, preservative free Santos Toro MD Work Phone: [facility] 05-25-2017 Influenza, injectabl e, Madin [place] Canine Kidney, preservative free, quadrivalent Santos Toro MD Work Phone: [facility] 08-27-2016 influenza, injectabl e, quadrivalent, preservative free Santos Toro MD Work Phone: [facility] 03-12-2015 influenza, injectabl e, quadrivalent, contains preservative Santos Toro MD Work Phone: [facility] 10-11-2013 tetanus toxoid, redu elpidio diphtheria toxoid, and acellular pertussis vaccine, adsorbed Santos Toro MD Work Phone: [facility] Payers Date Payer Category Payer Self-pay 2022 [facility] er [id number] 1957 Medicare [id number] 1957 Unknown [id number] 1957 Unknown [id number] 1957 Unknown [id number] 1957 Unknown [id number] 1957 Unknown [id number] 1957 Unknown [id number] Unknown [id number] Social History Date Type Detail Facility Start: 09-27-2023 End: 09-26-2024 Sex Assigned At [facility] Start: 1955 Sex Assigned At Female F [facility] Start: 11-21-2022 [facility] Never smoked tobacco [facility] Start: 11-21-2022 Tobacco use and exposure Smokeless tobacco non-user [facility] Start: 09-28-2023 End: 09-26-2024 Alcoholic beverage intake Current drinker of alcohol (finding) [facility] Start: 09-27-2023 End: 09-28-2023 Alcoholic beverage intake [facility] In a typical week, h ow many times do you talk on the telephone with family, friends, or neighbors? Patient declined [facility] Do you belong to any clubs or organizations such as yazidi groups, unions, fraternal or athletic groups, or school groups? Yes [facility] Are you now , , , , never or living with a partner? [facility] Start: 1955 Sex assigned at Not on file B ON [employer] [facility] Tobacco smoking consumption unknown [facility] [employer] Sex Female (finding) [facility] NEGATED: Highlighted rowStart: JCARLOSF History of tobacco use Passive smoker [facility] Clinical Notes 08-13-1998 to 09-26-2024 Santos Toro MD - 09/26/2024 11:00 AM EDTTelephone Encounter - Santos Toro MD - 05/13/2024 9:26 AM ESTTelephone Encounter - Santos Toro MD - 05/13/2024 9:26 AM EST Note Date & Type Note Facility 09-26-2024 History of Presen t illness Narrative Images from the original note were not included. Patient ID: Sydnee Green is a 69 y.o. female who presents for: Female HRT: Symptoms include: none Severity: Feels better since starting HRT treatment: Yes Other Symptoms: None Date of Last Mammogram: Needs to schedule Review of Systems Constitutional: Negative for chills and fever. Respiratory: Negative for cough, shortness of breath and wheezing. Cardiovascular: Negative for chest pain and palpitations. Gastrointestinal: Negative for abdominal pain. Genitourinary: Negative for frequency and urgency. Objective The patient is pleasant and in no acute distress The patient has good eye contact and clear speech 03/08/2022 12:00 PM 03/30/2022 12:00 PM 05/12/2022 12:00 PM 06/23/2022 12:00 PM 11/21/2022 2:04 PM 09/28/2023 1:53 PM 09/26/2024 10:57 AM Vitals BMI 23.71 kg/m2 21.01 kg/m2 21.62 kg/m2 21.62 kg/m2 21.62 kg/m2 21.62 kg/m2 21.27 kg/m2 BSA (m2) 1.66 m2 1.57 m2 1.59 m2 1.59 m2 1.59 m2 1.59 m2 1.57 m2 Height (in) 5' 3.5 5' 3.5 5' 3.5 5' 3.5 5' 3.5 5' 3.5 5' 3.5 Weight (lb) 136 120.5 124 124 124 124 122 Visit Report Report Report Report No Known Allergies Current Outpatient Medications on File Prior to Visit Medication Sig Dispense Refill Hormone Cream Base (HRT Cream Base Women) cream Use 0.5mL nightly No current facility-administered medications on file prior to visit. 1. Symptomatic menopausal or female climacteric states (Primary) I did discuss adjustments with her. I would have increased her progesterone but the volume applied per dose would have increased from 0.5 mL to 1 mL. She did not want to do this so we ended up leaving the progesterone alone. PDMP reviewed, Santos Toro MD on 09/26/2024 12:23 PM Appears as expected. - Hormone Cream Base (HRT Cream Base Women) cream; Use 0.5mL nightly 2. Hx of hysterectomy Cause of the menopause, an exclusionary diagnosis for the [facility] measures for cervical cancer screening. 3. Hormone replacement therapy (postmenopausal) Chronic problem, unstable, with complex medical decision making . I have reviewed the [facility] urine hormone profile. I have made notations on the patient's copy to help them remember this complex testing and the complex hormone interactions. I then reviewed this with the patient or their bilingual call center representative. I have educated them concerning the lab results and how they relate to their current hormonal status. I have reviewed with them any need to adjust, stop, or start new prescriptions or supplements. In prescribing an adjustment to their current medication, consideration of the following encompasses moderate decision making; the current prescriptions and supplements, the current allergies and medication intolerances, the current medical conditions, and potential drug interactions. If the adjusted medication is considered a controlled substance, then the OARRS and NARX scores are obtained and reviewed. Risks, benefits, and reason for adjusting their current medication were discussed. I have discussed the issues concerning some treatments as not being the standard of care. I have reviewed any cancer risks as appropriate. We have discussed that any supplements recommended have not undergone review or approval by the FDA and, therefore, have not been documented to be safe or effective to diagnose, treat, prevent, mitigate, or cure any condition or disease. The patient was given a chance to ask questions today and all questions were answered. The patient is to contact us if any other questions arise or if any problems occur with the adjustment in their medication. documented in this encounter [facility] 05-13-2024 Telephone encounter Note Form atting of this note might be different from the original. PDMP reviewed. Prescription generated an upfront for [facility] To fax. [facility] 05-13-2024 Miscellaneous Notes Formattin g of this note might be different from the original. PDMP reviewed. Prescription generated an upfront for [facility] To fax. Jo called, she is out of refill on her HRT cream. She states that she just had her labs done in August. She uses [facility]. documented in this encounter [facility] 05-13-2024 Telephone encounter Note Form atting of this note might be different from the original. Jo called, she is out of refill on her HRT cream. She states that she just had her labs done in August. She uses [facility]. [facility] 01-25-2023 Evaluation note Encounter Date Diagnosis Assessment [...] days Jan, Hematuria, unspecified (ICD-10 - R31.9) [facility] 11-22-2022 Evaluation note* Encounter Date Diagnosis Assessment Notes Treatment Notes Treatment Clinical Notes Mar, Right shoulder pain, unspecified chronicity [...] understanding and is agreeable with treatment plan [facility] Other 04-01-1999 History general Narrative - Reported* Type Description Date Surgical History HYSTERECTOMY w/ bladder suspens ion AUGUST 1998 [facility] Other Evaluation noteNo assessment information available [facility] Work Phone: Evaluation note* Diagnosis Onset Date Resolution Status Abrasions of multiple sites acute Fracture of left clavicle ac racheal Subungual hematoma of great toe of left foot acute [facility] Work Phone: Evaluation note* Diagnosis Closed displaced fracture of left clavicle, unspecified part of clavicle, initial encounter documented in this encounter [facility] Diagnosis Symptomatic menopausal or female climacteric states- Primary Hx of hysterectomy Hormone replacement therapy (postmenopausal) [facility])No reason for referral [facility]: Summary Purpose Family History [...] hematoma of great toe of left foot Chief Complaint Admit Date Unknown January 27, 2025 9:53am Additional Source Comments REASON FOR VISIT (unrecogniz ed section and content) Reason Comments Hormones INFORMATION SOURCE (unrecogn ized section and content) DATE CREATED AUTHOR 06/19/2022 [facility] DATE CREATED AUTHOR AUTHOR'S ORGANIZ ATION 12/04/2023 [facility] DATE CREATED AUTHOR AUTHOR'S ORGANIZ ATION 09/27/2024 [facility] DATE CREATED AUTHOR AUTHOR'S ORGANIZ ATION 01/29/2025 [facility] Care Teams (unrecognized sec tion and [...] Attending Provider Active Start: November 14, 2023 Maintenance Analyst Relationship Specialty Start Date End Date Sabrina Traylor MD [address] [place] [id number] PCP - General Family Medicine 10/03/23 Santos Toro MD [address] [place] [id number] PCP - [facility] 09/13/23 Maintenance Analyst Relationship Specialty Start Date End Date Sabrina Traylor MD [address] [place] [address] PCP - General Family Medicine 11/29/23 Maintenance Analyst Relationship Specialty Start Date End Date Sabrina Traylor MD PCP - General Family Medicine 10/03/23 Maintenance Analyst Relationship Specialty Start Date End Date Sabrina Traylor MD PCP - General Family Medicine 10/03/23 Team Status: Inactive Member Role Status Dates Michelle Etienne , CLAIM REPRESENTATIVE-C Attending Provider Active Start: January 27, 2025 End: January 27, 2025 Goals (unrecognized section and content) Goals may [...] BE BASED ON THE PRIMARY CLINICAL RECORDS. [facility] provides no warranty or guarantee of the accuracy or completeness of information in this document.
[2025-02-18 10:34] LABS: Glucose Urine UA NEGATIVE (NEGATIVE)
[2025-02-18 10:47] LABS: Cast Seen? NONE SEEN #/LPF (NONE SEEN); Crystals Seen? None Seen #/HPF (None Seen)
== END 2025-02-18 09:40 | disposition home or self-care (01) ==
LOC: LAB 09:41
PROVIDERS: PCP Nurse Practitioner Family; Visit Provider Nurse Practitioner Family
DX: N39.0 Urinary tract infection, site not specified (principal)
CPT/HCPCS: 81001; 87086